=== PATIENT | male | born 1930 | race Caucasian/White ===

== ENCOUNTER → 2016-10-07 | Outpatient (CLI) | payer OTHER, BC ==
[~2016-10-07] MED LIST: ASPI81TA28 PO; CYAN100020 PO; DOCU-94 PO; FRS/40 PO; MULT-653 PO; NITR0.4S UT; TPRSR/100 PO; TPRSR50 PO
[2016-10-07 14:41] LABS: BASO % 0.6 %; BASO ABS # 0.04 K/uL (0-0.2); COMPLETE YES; EOS % 3.9 %; HEMATOCRIT 41.4 % (42-52); IG% 0.2 %; LYMPH % 23.6 %; LYMPH ABS # 1.53 K/uL (1.2-3.4); MEAN CELL VOLUME 91.4 fL (80-100); MEAN CORPUSCULAR HEMOGLOBIN 30.9 pg (25-34); MEAN CORPUSCULAR HGB CONC 33.8 g/dl (32-36); MEAN PLATELET VOLUME 9.1 fL (7.4-10.4); MONO % 10.5 %; NEUT % 61.2 %; PLATELET COUNT 109 K/uL (130-400); RED BLOOD COUNT 4.53 M/uL (4.7-6.1); WHITE BLOOD COUNT 6.49 K/uL (4.8-10.8)
== END | disposition home or self-care (01) ==
LOC: C.CPL 13:34
PROVIDERS: ATTEND Internal Medicine
DX: Z01.810 Encounter for preprocedural cardiovascular examination (principal); Z01.812 Encounter for preprocedural laboratory examination

== ENCOUNTER 2016-10-18 07:47 | Day surgery (SDC) | payer OTHER, BC ==
[2016-09-30 15:15] VITALS: BMI 23.0
[~2016-10-18] VITALS: Ht 180.3 cm; Wt 82.7 kg
[~2016-10-18 07:47] MED LIST changes: +CIPROFLOXACIN 400MG / 200ML D5W IV ONE; +CIPROFLOXACIN 400MG / 200ML D5W IV SCH; +LACTATED RINGER'S 1000ML 1,000 ML IV SCH
--- NOTE | 2016-10-18 07:53 | Endo History and Physical ---
History & Physical Date of Service: October 18, 2016. Chief Complaint: Abnormal CT of Bile duct Referring Physician: Dr. Newsome History of Present Illness History of a recent CT showing a possible stone in the CBD, for EUS and possible ERCP today. Past Medical History Atrial Fibrillation, Diabetes, Angioplasty/Stent, Anxiety, Reflux, Blood Dyscrasias, Cancer, Heart Disease, Hypertension, Kidney Disease, CVA/TIA, Depression, [place] Past Surgical History Hx Cardiac Surgery: Yes (DOUBLE BYPASS, AORTIC VALVE REPLACEMENT, CARDIAC STENTS) Hx Abdominal Surgery: No Hx Post-Op Nausea and Vomiting: No Hx Cancer Surgery: No Hx Thoracic Surgery: Yes (OPEN HEART, DOUBLE BYPASS) Hx Orthopedic: No Hx Urinary Tract Surgery: No Social History Smoking Status: Never Smoker Hx Substance Use: No Hx Alcohol Use: No 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, 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, 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) Rosuvastatin (Verified Allergy, Unknown, Myalgias., 09/30/16) Venlafaxine (Verified Allergy, Unknown, Unknown, 09/30/16) Lorazepam (Verified Adverse Reaction, Unknown, Fatigue, 09/30/16) Current Medications Reported Home Medications Medications Dose Route/Sig Max Daily Dose Days Date Category Dose Instructions Metoprolol Succinate ER (Metoprolol Succinate) 100 Mg Tabcr 100 Mg PO Q2D 09/30/16 Reported TO ALTERNATE EVERY OTHER DAY WITH 50MG TOPROL XL Metoprolol Succinate ER (Metoprolol Succinate) 50 Mg Tabcr 50 Mg PO Q2D 09/30/16 Reported ALTERNATING EVERY OTHER DAY WITH TOPROL XL 100MG Lasix (Furosemide) 40 Mg Tab 2 Tab PO Q2D 09/30/16 Reported Colace (Docusate Sodium) 100 Mg Cap 1 Cap PO DAILY 09/30/16 Reported Aspirin Ec (Aspirin) 81 Mg Tab 81 Mg PO QAM 09/30/16 Reported Vitamin B12 (Cyanocobalamin) 1,000 Mcg Tab 2 Tabs PO QAM 03/15/15 Reported Nitrostat (Nitroglycerin) 0.4 Mg Sub 0.4 Mg UT PRN 03/15/15 Reported PT HAS NOT NEEDED PER SON Multi Vitamin/Minerals Fu (Multiple Vitamins W/ Minerals) 1 Tab Tab 1 Tab PO QAM 03/15/15 Reported Vital Signs Weight (Kilograms): 75 Height (Feet): 5 Height (Inches): 11 Physical Exam General Appearance: no apparent distress Respiratory/Chest: Auscultation: breath sounds normal Cardiovascular: Heart Auscultation: II/ JOSHUA Assessment and Plan Patient for EUS and possible ERCP today after a recent CT which shows a possible stone in the CBD. We have discussed the risks to include bleeding, infection, perforation, failed biliary cannulation and pancreatitis. Plan EUS, possible ERCP
[2016-10-18] MEDS ORDERED: FENTANYL CITRATE INJ 50 MCG/1 ML 2 ML VIAL ONE (08:23)
[2016-10-18 08:41] LABS: INR 1.1 (0.9-1.1); PROTHROMBIN TIME (PATIENT) 11.4 SECONDS (9.0-12.0)
[2016-10-18 08:44] VITALS: BP 136/86; PULSE 90; TEMP 36.5; O2SAT 96; Ht 180.3 cm; Wt 82.7 kg
[2016-10-18] MEDS ORDERED: ROCURONIUM BROMIDE 10 MG/ML 5 ML VIAL ONE (09:27)
[2016-10-18] MEDS ORDERED: ONDANSETRON INJ 2 MG/ML 2 ML VIAL ONE (09:27)
[2016-10-18] MEDS ORDERED: PROPOFOL IV EMULSION 10 MG/ML 20 ML VIAL IV ONE (09:27)
[2016-10-18] MEDS ORDERED: LIDOCAINE HCL 2% 2 ML VIAL (20MG/ML) ONE (09:27)
[2016-10-18] MEDS ORDERED: SUCCINYLCHOLINE CHLORIDE 20 MG/ML 10 ML VIAL IV ONE (09:27)
[2016-10-18] MEDS ORDERED: LACTATED RINGER'S 1000ML 1,000 ML IV PRN (09:35)
[2016-10-18] MEDS ORDERED: ONDANSETRON INJ 2 MG/ML 2 ML VIAL IV PRN ×2 (09:45→10:30)
[2016-10-18] MEDS ORDERED: FENTANYL CITRATE INJ 50 MCG/1 ML 2 ML VIAL IV PRN (09:45)
[2016-10-18] MEDS ORDERED: INDOMETHACIN 50 MG SUPP PR ONE ×2 (09:46→09:48)
[2016-10-18] MEDS ORDERED: LARYING-O-JET KIT (LTA) EXT ONE ×2 (10:04)
--- NOTE | 2016-10-18 10:08 | DIAGNOSTIC IMAGING REPORT ---
ERCP BILIARY DUCTAL CLINICAL HISTORY: ERCP COMPARISON STUDY: None FLUOROSCOPY TIME: 57 seconds. FINDINGS: Retrograde cannulation of the common bile duct. This is followed by balloon insufflation and sweeping of the common duct. IMPRESSION: ERCP as noted Electronically signed by: Jamal An M.D. 10/18/2016 10:06 AM Dictated Date/Time: 10/18/2016 10:05 AM
--- NOTE | 2016-10-18 10:11 | GI REPORT ---
Procedure Date: 10/18/2016 9:15 AM Procedure: Upper GI endoscopy Indications: Epigastric abdominal pain, Abnormal CT of the GI tract Medicines: General Anesthesia Complications: No immediate complications. Estimated blood loss: Minimal. Estimated Blood Loss: Estimated blood loss was minimal. Procedure: Pre-Anesthesia Assessment: - Prior to the procedure, a History and Physical was performed, and patient medications, allergies and sensitivities were reviewed. The patient's tolerance of previous anesthesia was reviewed. - The risks and benefits of the procedure and the sedation options and risks were discussed with the patient. All questions were answered and informed consent was obtained. - Patient identification and proposed procedure were verified prior to the procedure by the physician, the nurse and the senior procurement specialist. The procedure was verified in the procedure room. - Pre-procedure physical examination revealed no contraindications to sedation. - ASA Grade Assessment: IV - A patient with severe systemic disease that is a constant threat to life. - After reviewing the risks and benefits, the patient was deemed in satisfactory condition to undergo the procedure. - The anesthesia plan was to use monitored anesthesia care (MAC). After obtaining informed consent, the endoscope was passed under direct vision. Throughout the procedure, the patient's blood pressure, pulse, and oxygen saturations were monitored continuously. The scope was introduced through the mouth, and advanced to the second part of duodenum. The upper GI endoscopy was accomplished without difficulty. The patient tolerated the procedure well. Findings: The examined esophagus was normal. The Z-line was regular and was found 39 cm from the incisors. Diffuse mild inflammation characterized by erythema and granularity was found in the entire examined stomach. Biopsies were taken with a cold forceps for histology. Estimated blood loss was minimal. Multiple diffuse erosions without bleeding were found in the duodenal bulb and in the second part of the duodenum. Biopsies were taken with a cold forceps for histology. Estimated blood loss was minimal. Impression: - Normal esophagus. - Z-line regular, 39 cm from the incisors. - Gastritis. Biopsied. - Duodenal erosions without bleeding. Biopsied. Recommendation: - Perform an upper endoscopic ultrasound (UEUS) today. - Await pathology results. - Use Prilosec (omeprazole) 20 mg PO daily Marvin Perez DO 10/18/2016 10:10:40 AM This report has been signed electronically. Note Initiated On: 10/18/2016 9:15 AM I attest to the content of the Intraoperative Record and orders documented therein, exceptions below
[2016-10-18] MEDS ORDERED: EpHEDrine SULFATE 50MG/5ML SYR ONE (10:12)
--- NOTE | 2016-10-18 10:17 | GI REPORT ---
Procedure Date: 10/18/2016 9:26 AM Procedure: Upper EUS Indications: Common bile duct dilation (acquired) seen on CT scan, Epigastric abdominal pain Medicines: General Anesthesia Complications: No immediate complications. Estimated blood loss: Minimal. Estimated Blood Loss: Estimated blood loss was minimal. Procedure: Pre-Anesthesia Assessment: - Prior to the procedure, a History and Physical was performed, and patient medications, allergies and sensitivities were reviewed. The patient's tolerance of previous anesthesia was reviewed. - The risks and benefits of the procedure and the sedation options and risks were discussed with the patient. All questions were answered and informed consent was obtained. - Patient identification and proposed procedure were verified prior to the procedure by the physician, the nurse and the orchid hand. The procedure was verified in the procedure room. - Pre-procedure physical examination revealed no contraindications to sedation. - ASA Grade Assessment: IV - A patient with severe systemic disease that is a constant threat to life. - After reviewing the risks and benefits, the patient was deemed in satisfactory condition to undergo the procedure. - The anesthesia plan was to use general anesthesia. - Immediately prior to administration of medications, the patient was re-assessed for adequacy to receive sedatives. - The heart rate, respiratory rate, oxygen saturations, blood pressure, adequacy of pulmonary ventilation, and response to care were monitored throughout the procedure. - The physical status of the patient was re-assessed after the procedure. After obtaining informed consent, the endoscope was passed under direct vision. Throughout the procedure, the patient's blood pressure, pulse, and oxygen saturations were monitored continuously. The Endosonoscope was introduced through the mouth, and advanced to the second part of duodenum. The upper EUS was accomplished without difficulty. The patient tolerated the procedure well. Findings: Endosonographic Finding : There was no sign of significant endosonographic abnormality in the ampulla. No masses were identified. There was dilation in the common bile duct which measured up to 8 mm. One stone was visualized endosonographically in the common bile duct. The stone measured 7 mm in greatest dimension. The stone was round. It was hyperechoic and characterized by shadowing. Evidence of a previous cholecystectomy was identified endosonographically. There was no sign of significant endosonographic abnormality in the visualized portion of the liver. Homogeneous parenchyma was identified. There was no sign of significant endosonographic abnormality in the left adrenal gland. No abnormal echogenicity and no adrenal gland enlargement were identified. No lymphadenopathy seen. There was no sign of significant endosonographic abnormality in the entire pancreas. The pancreatic duct measured up to 2 mm in diameter in th ehead and1.2 mm in the body. No masses, no cysts, the pancreatic duct was thin in caliber. Impression: - There was no sign of significant pathology in the ampulla. - There was dilation in the common bile duct which measured up to 8 mm. - One stone was visualized endosonographically in the common bile duct. - Evidence of a cholecystectomy. - There was no evidence of significant pathology in the visualized portion of the liver. - Endosonographic images of the left adrenal gland were unremarkable. Recommendation: - Perform an ERCP today. Saurabh Mcginnis D.O. Saurabh Mcginnis, 10/18/2016 10:16:41 AM This report has been signed electronically. Note Initiated On: 10/18/2016 9:26 AM I attest to the content of the Intraoperative Record and orders documented therein, exceptions below
--- NOTE | 2016-10-18 10:20 | GI REPORT ---
Procedure Date: 10/18/2016 9:40 AM Procedure: ERCP Indications: Abdominal pain of suspected biliary origin, For therapy of bile duct stone(s) Medicines: General Anesthesia Complications: No immediate complications. Estimated blood loss: Minimal. Estimated Blood Loss: Estimated blood loss was minimal. Procedure: Pre-Anesthesia Assessment: - Prior to the procedure, a History and Physical was performed, and patient medications, allergies and sensitivities were reviewed. The patient's tolerance of previous anesthesia was reviewed. - The risks and benefits of the procedure and the sedation options and risks were discussed with the patient. All questions were answered and informed consent was obtained. - Patient identification and proposed procedure were verified prior to the procedure by the physician, the nurse and the ward attendant. The procedure was verified in the procedure room. - Pre-procedure physical examination revealed no contraindications to sedation. - ASA Grade Assessment: IV - A patient with severe systemic disease that is a constant threat to life. - After reviewing the risks and benefits, the patient was deemed in satisfactory condition to undergo the procedure. - The anesthesia plan was to use general anesthesia. - Immediately prior to administration of medications, the patient was re-assessed for adequacy to receive sedatives. - The heart rate, respiratory rate, oxygen saturations, blood pressure, adequacy of pulmonary ventilation, and response to care were monitored throughout the procedure. - The physical status of the patient was re-assessed after the procedure. After obtaining informed consent, the scope was passed under direct vision. Throughout the procedure, the patient's blood pressure, pulse, and oxygen saturations were monitored continuously. The SCOPE was introduced through the mouth, and advanced to the duodenum and used to inject contrast into the bile duct. The ERCP was accomplished without difficulty. The patient tolerated the procedure well. Findings: A rental car ferry driver film of the abdomen was obtained. Surgical clips, consistent with previous cholecystectomy, were seen in the area of the right upper quadrant of the abdomen. The esophagus was successfully intubated under direct vision without detailed examination of the pharynx, larynx, and associated structures, and upper GI tract. The upper GI tract was grossly normal. The major papilla was normal. The bile duct was deeply cannulated with the short-nosed traction sphincterotome (Omni 35) and 0.035 in Acrobat guidewire during the second cannulation attempt (PD not cannulated or injected). Contrast was injected. I personally interpreted the bile duct images. Contrast extended to the hepatic ducts. The main bile duct was moderately dilated, with a stone causing an obstruction. The largest diameter was 8 mm. Biliary sphincterotomy was made with a monofilament short-tip traction sphincterotome using ERBE electrocautery. There was no post-sphincterotomy bleeding. To discover objects, the biliary tree was swept with a 12 mm balloon and 15 mm balloon starting at the bifurcation. One stone was removed. No stones remained. The endoscope was withdrawn from the patient. Impression: - The major papilla appeared normal. - The entire main bile duct was moderately dilated, with a stone causing an obstruction. - A sphincterotomy was performed. - The biliary tree was swept. - Choledocholithiasis was found. Complete removal was accomplished by biliary sphincterotomy and balloon extraction. Recommendation: - Avoid aspirin and nonsteroidal anti-inflammatory medicines for 1 week. - Clear liquid diet today. - Observe patient's clinical course following today's ERCP with therapeutic intervention. Saurabh Mcginnis D.O. Saurabh Mcginnis DO 10/18/2016 10:20:23 AM This report has been signed electronically. Note Initiated On: 10/18/2016 9:40 AM I attest to the content of the Intraoperative Record and orders documented therein, exceptions below
--- NOTE | 2016-10-18 10:25 | [facility] Post Operative Brief Note ---
Immediate Operative Summary Operative Date October 18, 2016. Pre-Operative Diagnosis abnormal CT scan Post-Operative Diagnosis Duodenal erosioins gastritis 1 cbd stone Procedure(s) Performed Upper Endoscopy, Upper Endoscopic Ultrasonography; Endoscopic Retrograde Cholangiopancreatogram Surgeon Dr. Saurabh Mcginnis Log Carrier Operator Surgeon(s) None Estimated Blood Loss 0ml Findings Duodenal erosions gastritis 1 cbd stone Specimens all specimens handled by ENDO crew Drains none Anesthesia General Complication(s) None Disposition Recovery Room / PACU
--- NOTE | 2016-10-18 10:27 | Discharge Instructions ---
Endoscopy Patient Instructions Date / Procedure(s) Performed October 18, 2016. 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 Medication Instructions Restart Stopped Medication(s): Reported Home Medications Medications Dose Route/Sig Max Daily Dose Days Date Category Dose Instructions Metoprolol Succinate ER (Metoprolol Succinate) 100 Mg Tabcr 100 Mg PO Q2D 09/30/16 Reported TO ALTERNATE EVERY OTHER DAY WITH 50MG TOPROL XL Metoprolol Succinate ER (Metoprolol Succinate) 50 Mg Tabcr 50 Mg PO Q2D 09/30/16 Reported ALTERNATING EVERY OTHER DAY WITH TOPROL XL 100MG Lasix (Furosemide) 40 Mg Tab 2 Tab PO Q2D 09/30/16 Reported Colace (Docusate Sodium) 100 Mg Cap 1 Cap PO DAILY 09/30/16 Reported Aspirin Ec (Aspirin) 81 Mg Tab 81 Mg PO QAM 09/30/16 Reported Vitamin B12 (Cyanocobalamin) 1,000 Mcg Tab 2 Tabs PO QAM 03/15/15 Reported Nitrostat (Nitroglycerin) 0.4 Mg Sub 0.4 Mg UT PRN 03/15/15 Reported PT HAS NOT NEEDED PER SON Multi Vitamin/Minerals Fu (Multiple Vitamins W/ Minerals) 1 Tab Tab 1 Tab PO QAM 03/15/15 Reported Provider Instructions Activity Restrictions - No exercising or heavy lifting for 24 hours. - Do not drink alcohol the day of the procedure. - Do not drive a car or operate machinery until the day after the procedure. - Do not make any important decisions or sign important papers in 24 hours after the procedure. Following Day: - Return to full activity which may include returning to work/school. Diet Clear liquid diet today Regular diet on Friday Treatment For Common After Affects For mild abdominal pain, bloating, or excessive gas: - Rest - Eat lightly - Lie on right side Follow-Up Information Follow-up with Jerod Blake as scheduled Follow-up with Dr. Mcginnis as needed Anesthesia Information What You Should Know You have had a procedure that required some medicine to reduce anxiety and discomfort. This treatment is called moderate sedation. After receiving the treatment, you may be sleepy, but you will be able to breathe on your own. The effects of the treatment may last for several hours. Follow these instructions along with Activity/Diet recommendations noted above: * Do NOT do anything where dizziness or clumsiness would be dangerous. * Rest quietly at home today, then you can be up and about tomorrow. * Have a responsible person stay with you the rest of today. * You may have had an I.V. today. If so, you may take the dressing off later today. Recommendations Call your doctor if: * Trouble breathing * Continuous vomiting for more than 24 hours * Temperature above 101 degrees * Severe abdominal pain or bloating * Pain not relieved by pain medicine ordered * There is increased drainage or redness from any incision * A large amount of rectal bleeding greater than 2-3 tablespoons. (If you had a polyp/s removed or have hemorrhoids, a small amount of blood - from the rectum is to be expected.) * You have any unanswered questions or concerns. IN THE EVENT OF A SERIOUS EMERGENCY, GO TO THE NEAREST EMERGENCY ROOM Your discharge instructions were prepared by provider Saurabh Mcginnis. Patient Instructions Signature Page Ryan Mcknight Patient (or Guardian) Signature/Date: I have read and understand the instructions given to me by my caregivers. Caregiver/RN/Doctor Signature/Date: The above-named patient and/or guardian has received patient instructions on this date. + Original Patient Signature Page (only) stays with chart. Please make copy for patient.
[2016-10-18] MEDS ORDERED: INDOMETHACIN 50 MG SUPP PR SCH (10:30)
[2016-10-18 10:58] VITALS: BP 138/78; PULSE 67; TEMP 36.3; O2SAT 97
--- NOTE | 2016-10-18 11:26 | Anesthesiology Progress Note ---
Anesthesia Post Op Note Date & Time October 18, 2016 at 11:26 Vital Signs Pain Intensity: 0 Vital Signs Past 12 Hours Date Time Temp Pulse Resp B/P Pulse Ox O2 Delivery O2 Flow Rate FiO2 10/18/16 10:58 36.3 67 18 138/78 97 Room Air 10/18/16 10:50 36.2 72 16 130/94 94 Room Air 10/18/16 10:40 72 16 142/80 93 Room Air 10/18/16 10:30 82 16 150/89 98 Diffusion Mask 10 10/18/16 10:20 82 16 145/91 98 Diffusion Mask 10 10/18/16 10:08 36 82 16 136/102 98 Diffusion Mask 10 10/18/16 08:44 36.5 90 18 136/86 96 Room Air Notes Mental Status: alert / awake / arousable, participated in evaluation Pt Amnestic to Procedure: Yes Nausea / Vomiting: adequately controlled Pain: adequately controlled Airway Patency, RR, SpO2: stable & adequate BP & HR: stable & adequate Hydration State: stable & adequate Anesthetic Complications: no major complications apparent
[2016-10-18 11:30] VITALS: BP 140/80; PULSE 71; O2SAT 100
[2016-10-18 11:55] VITALS: BP 145/94; PULSE 75; TEMP 36.1; O2SAT 96
== END 2016-10-18 12:00 | disposition home or self-care (01) ==
LOC: C.ACU 07:47
PROVIDERS: ATTEND Internal Medicine Gastroenterology
DX: K29.50 Unspecified chronic gastritis without bleeding (principal); K29.80 Duodenitis without bleeding; R93.2 Abnormal findings on diagnostic imaging of liver and biliary tract; E11.22 Type 2 diabetes mellitus with diabetic chronic kidney disease; I25.2 Old myocardial infarction; I25.10 Atherosclerotic heart disease of native coronary artery without angina pectoris; I48.91 Unspecified atrial fibrillation; Z98.62 Peripheral vascular angioplasty status; I10 Essential (primary) hypertension; I50.9 Heart failure, unspecified; Z95.2 Presence of prosthetic heart valve; Z86.73 Personal history of transient ischemic attack (TIA), and cerebral infarction without residual deficits; Z85.46 Personal history of malignant neoplasm of prostate; Z98.890 Other specified postprocedural states; Z79.82 Long term (current) use of aspirin; Z79.899 Other long term (current) drug therapy

== ENCOUNTER → 2016-11-29 | Outpatient (CLI) | payer OTHER, BC ==
[~2016-11-29] MED LIST changes: -CIPROFLOXACIN 400MG / 200ML D5W IV ONE; -CIPROFLOXACIN 400MG / 200ML D5W IV SCH; -LACTATED RINGER'S 1000ML 1,000 ML IV SCH
[2016-11-29 14:45] LABS: BASO % 0.5 %; BASO ABS # 0.03 K/uL (0-0.2); COMPLETE YES; HEMATOCRIT 40.4 % (42-52); IG% 0.2 %; LYMPH % 19.4 %; LYMPH ABS # 1.29 K/uL (1.2-3.4); MEAN CELL VOLUME 89.4 fL (80-100); MEAN CORPUSCULAR HEMOGLOBIN 30.5 pg (25-34); MEAN CORPUSCULAR HGB CONC 34.2 g/dl (32-36); MEAN PLATELET VOLUME 9.5 fL (7.4-10.4); MONO % 8.6 %; NEUT % 69.3 %; PLATELET COUNT 121 K/uL (130-400); RED BLOOD COUNT 4.52 M/uL (4.7-6.1); WHITE BLOOD COUNT 6.64 K/uL (4.8-10.8)
--- NOTE | 2016-12-02 12:42 | CODING QUERY NO DIAGNOSIS ---
CQTREATMENT RENDERED WITHOUT A DIAGNOSIS To promote full compliance with coding requirements relating to patient care, physician participation is requested in all cases of clean rice broker uncertainty. Please assist us with providing a diagnosis/symptom for the test(s) below: A diagnosis/symptom was not documented on your Order. A valid diagnosis/symptom is required to bill all insurances. Please remember that we are unable to code a diagnosis of rule out, probable, possible, questionable, or suspected. Tests that require a diagnosis: DOS 11/29/16 CBC URIC ACID ERYTHROCYTE SEDIMENT Provider Signature: Date: Thank you Edwige Keene [facility] Information Management Once completed, please kindly fax back to [phone] For questions please call [phone]
== END | disposition home or self-care (01) ==
LOC: C.LAB 13:49
PROVIDERS: ATTEND Podiatrist Foot & Ankle Surgery
DX: M24.872 Other specific joint derangements of left ankle, not elsewhere classified (principal); M76.899 Other specified enthesopathies of unspecified lower limb, excluding foot; M79.675 Pain in left toe(s); M79.674 Pain in right toe(s); B25.1 Cytomegaloviral hepatitis

== ENCOUNTER → 2017-06-05 | Outpatient (CLI) | payer OTHER, BC ==
[2017-06-05 14:55] LABS: BLOOD UREA NITROGEN 22 mg/dl (7-18); BUN/CREATININE RATIO 13.6 (10-20); CREATININE 1.62 mg/dl (0.60-1.40)
== END | disposition home or self-care (01) ==
LOC: C.LAB 12:46
PROVIDERS: ATTEND Urology
DX: C61 Malignant neoplasm of prostate (principal)

== ENCOUNTER → 2017-06-24 | Outpatient (CLI) | payer OTHER, BC ==
--- NOTE | 2017-06-24 11:24 | DIAGNOSTIC IMAGING REPORT ---
ABDOMEN AND PELVIS CT WITH IV CONTRAST CT DOSE: 664.29 mGy.cm HISTORY: C61 Adenocarcinoma of prostate diabetic-[id number] TECHNIQUE: Multiaxial CT images of the abdomen and pelvis were performed following the use of intravenous contrast. A dose lowering technique was utilized adhering to the principles of ALARA. COMPARISON STUDY: Abdomen and pelvis CT 03/15/2015. FINDINGS: Suboptimal evaluation due to the motion artifact. Increase in size in the small right pleural effusion. This appears to be partially loculated with pleural enhancement. The pleural enhancement has a somewhat nodular appearance. Trace left pleural effusion. The heart is enlarged. Postoperative changes and an aortic valve prosthesis. Pericardial calcifications, unchanged. Round consolidation within the base of the right lower lobe favors round atelectasis. There is also a 2.3 cm nodular opacity within the right middle lobe. Motion artifact. No suspicious lytic or blastic osseous lesions. Cholecystectomy. The liver, pancreas, spleen, adrenal glands are unremarkable. Bilateral cortical thinning. No hydronephrosis. A 5 mm calcification within the right kidney. Pneumobilia. No retroperitoneal or mesenteric lymphadenopathy. There are metallic surgical seen within the right lower quadrant. Normal appendix. Mild bladder wall thickening. The prostate gland is mildly enlarged. No pelvic lymphadenopathy. Colonic diverticulosis. No bowel wall thickening or obstruction. The patient is status post aortobiiliac stent graft repair of an abdominal aortic aneurysm. The aneurysm sac measures 5.2 x 5.2 cm. No retroperitoneal hematoma. IMPRESSION: 1. Small right pleural effusion has increased in size. This is partially loculated and demonstrates pleural enhancement. The pleural enhancement has a slightly nodular appearance. This could be due to a chronic pleural effusion. However, metastatic disease or an infectious process could also have a similar appearance. 2. A 2.3 cm nodular density within the right middle lobe which favors round atelectasis. However, this requires follow-up to ensure stability/resolution. There is also round atelectasis seen within the base of the right lower lobe. 3. Trace left pleural effusion, unchanged. 4. No definite evidence for metastatic disease within the abdomen or pelvis. 5. Status post aortobiiliac stent graft repair of an abdominal aortic aneurysm. The aneurysm sac currently measures 5.2 x 5.2 cm. 6. Mild bladder wall thickening. This may be due to chronic outlet obstruction. Electronically signed by: Isma Godfrey M.D. 06/24/2017 11:23 AM Dictated Date/Time: 06/24/2017 11:12 AM
--- NOTE | 2017-06-24 14:01 | DIAGNOSTIC IMAGING REPORT ---
BONE SCAN WHOLE BODY HISTORY: 86 years-old Male C61 Adenocarcinoma of prostate COMPARISON: Bone scan 04/05/2013, CT abdomen and pelvis 06/24/2017 TECHNIQUE: Anterior and posterior whole-body planar scintigraphic images from a bone scan were obtained utilizing 26.2 mCi technetium 99 MDP. Scan was obtained 3 hours post injection. FINDINGS: The lodging appearing bilateral renal, urinary bladder and soft tissue uptake is noted. Areas of mild to moderate tracer uptake within the shoulders, sternoclavicular joints and hindfeet bilaterally suggest degenerative changes. There is a small focal area of moderate radiotracer uptake noted involving the lateral aspect of the left 11th rib which correlates with a subacute appearing nondisplaced fracture seen on comparison CT abdomen and pelvis 06/24/2017. No suspicious foci identified within the axial or appendicular skeletal system to suggest metastasis. IMPRESSION: 1. No evidence of skeletal metastatic disease. 2. Small focal area of moderate radiotracer uptake involving the lateral aspect of the left 11th rib correlates with a subacute appearing nondisplaced fracture seen on comparison CT abdomen and pelvis 06/24/2017. The above report was generated using voice recognition software. It may contain grammatical, syntax or spelling errors. Electronically signed by: Eric Giraldo M.D. 06/24/2017 2:00 PM Dictated Date/Time: 06/24/2017 1:54 PM
== END | disposition home or self-care (01) ==
LOC: C.NUCL 09:56
PROVIDERS: ATTEND Urology
DX: C61 Malignant neoplasm of prostate (principal); J90 Pleural effusion, not elsewhere classified; Z95.828 Presence of other vascular implants and grafts

== ENCOUNTER → 2017-06-26 | Outpatient (CLI) | payer OTHER, BC ==
[2017-06-26 12:32] LABS: BLOOD UREA NITROGEN 16 mg/dl (7-18); CREATININE 1.38 mg/dl (0.60-1.40)
== END | disposition home or self-care (01) ==
LOC: C.LAB 11:05
PROVIDERS: ATTEND Urology
DX: C61 Malignant neoplasm of prostate (principal)

== ENCOUNTER → 2017-07-01 | Day surgery (SDC) | payer OTHER, BC ==
[~2017-07-01] VITALS: Ht 177.8 cm; Wt 75.0 kg
[~2017-07-01] MED LIST changes: +ONDANSETRON INJ 2 MG/ML 2 ML VIAL IV PRN
[2017-07-01 12:21] VITALS: Ht 177.8 cm; Wt 75.0 kg
--- NOTE | 2017-07-01 12:21 | Endo History and Physical ---
History & Physical Date of Service: Jul 01, 2017. Chief Complaint: Follow-up for a gastric ulcer Referring Physician: History of Present Illness Patient status post ERCP about 8 months ago found to have an incidental gastric ulcer. He presents for surveillance examination today. Past Medical History Atrial Fibrillation, Diabetes, Angioplasty/Stent, Anxiety, Reflux, Blood Dyscrasias, Cancer, Heart Disease, Hypertension, Kidney Disease, CVA/TIA, Depression, NC Past Surgical History Hx Cardiac Surgery: Yes (DOUBLE BYPASS, AORTIC VALVE REPLACEMENT, CARDIAC STENTS) Hx Abdominal Surgery: No Hx Post-Op Nausea and Vomiting: No Hx Cancer Surgery: No Hx Thoracic Surgery: Yes (OPEN HEART, DOUBLE BYPASS) Hx Orthopedic: No Hx Urinary Tract Surgery: No Social History Smoking Status: Never Smoker Hx Substance Use: No Hx Alcohol Use: No 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, 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 DIRECTOR, 09/30/16) Rosuvastatin (Verified Allergy, Unknown, Myalgias., 09/30/16) Venlafaxine (Verified Allergy, Unknown, Unknown, 09/30/16) Lorazepam (Verified Adverse Reaction, Unknown, Fatigue, 09/30/16) Current Medications Reported Home Medications Medications Dose Route/Sig Max Daily Dose Days Date Category Dose Instructions Metoprolol Succinate ER (Metoprolol Succinate) 100 Mg Tabcr 100 Mg PO Q2D 09/30/16 Reported TO ALTERNATE EVERY OTHER DAY WITH 50MG TOPROL XL Metoprolol Succinate ER (Metoprolol Succinate) 50 Mg Tabcr 50 Mg PO Q2D 09/30/16 Reported ALTERNATING EVERY OTHER DAY WITH TOPROL XL 100MG Lasix (Furosemide) 40 Mg Tab 2 Tab PO Q2D 09/30/16 Reported Colace (Docusate Sodium) 100 Mg Cap 1 Cap PO DAILY 09/30/16 Reported Aspirin Ec (Aspirin) 81 Mg Tab 81 Mg PO QAM 09/30/16 Reported Vitamin B12 (Cyanocobalamin) 1,000 Mcg Tab 2 Tabs PO QAM 03/15/15 Reported Nitrostat (Nitroglycerin) 0.4 Mg Sub 0.4 Mg UT PRN 03/15/15 Reported PT HAS NOT NEEDED PER SON Multi Vitamin/Minerals Fu (Multiple Vitamins W/ Minerals) 1 Tab Tab 1 Tab PO QAM 03/15/15 Reported Physical Exam General Appearance: no apparent distress Respiratory/Chest: Auscultation: deminished air movement Cardiovascular: Heart Auscultation: murmur Abdomen: Inspection & Palpation: soft Assessment and Plan Patient for surveillance upper endoscopy today. Discussed the risks to include bleeding, infection, perforation and pain.
[2017-07-01 12:40] VITALS: TEMP 36.6
--- NOTE | 2017-07-01 13:22 | Discharge Instructions ---
Endoscopy Patient Instructions Date / Procedure(s) Performed Jul 01, 2017. 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 Mild gastritis Medication Instructions Reported Home Medications Medications Dose Route/Sig Max Daily Dose Days Date Category Dose Instructions Metoprolol Succinate ER (Metoprolol Succinate) 100 Mg Tabcr 100 Mg PO Q2D 09/30/16 Reported TO ALTERNATE EVERY OTHER DAY WITH 50MG TOPROL XL Metoprolol Succinate ER (Metoprolol Succinate) 50 Mg Tabcr 50 Mg PO Q2D 09/30/16 Reported ALTERNATING EVERY OTHER DAY WITH TOPROL XL 100MG Lasix (Furosemide) 40 Mg Tab 2 Tab PO Q2D 09/30/16 Reported Colace (Docusate Sodium) 100 Mg Cap 1 Cap PO DAILY 09/30/16 Reported Aspirin Ec (Aspirin) 81 Mg Tab 81 Mg PO QAM 09/30/16 Reported Vitamin B12 (Cyanocobalamin) 1,000 Mcg Tab 2 Tabs PO QAM 03/15/15 Reported Nitrostat (Nitroglycerin) 0.4 Mg Sub 0.4 Mg UT PRN 03/15/15 Reported PT HAS NOT NEEDED PER SON Multi Vitamin/Minerals Fu (Multiple Vitamins W/ Minerals) 1 Tab Tab 1 Tab PO QAM 03/15/15 Reported Provider Instructions Activity Restrictions - No exercising or heavy lifting for 24 hours. - Do not drink alcohol the day of the procedure. - Do not drive a car or operate machinery until the day after the procedure. - Do not make any important decisions or sign important papers in 24 hours after the procedure. Following Day: - Return to full activity which may include returning to work/school. Diet Start your diet with liquids and light foods (jello, soup, juice, toast). Then eat your usual diet if not nauseated. Treatment For Common After Affects For mild abdominal pain, bloating, or excessive gas: - Rest - Eat lightly - Lie on right side Follow-Up Information Follow-up with Dr Newsome as scheduled No need for repeat upper endoscopy at the present time. Anesthesia Information What You Should Know You have had a procedure that required some medicine to reduce anxiety and discomfort. This treatment is called moderate sedation. After receiving the treatment, you may be sleepy, but you will be able to breathe on your own. The effects of the treatment may last for several hours. Follow these instructions along with Activity/Diet recommendations noted above: * Do NOT do anything where dizziness or clumsiness would be dangerous. * Rest quietly at home today, then you can be up and about tomorrow. * Have a responsible person stay with you the rest of today. * You may have had an I.V. today. If so, you may take the dressing off later today. Recommendations Call your doctor if: * Trouble breathing * Continuous vomiting for more than 24 hours * Temperature above 101 degrees * Severe abdominal pain or bloating * Pain not relieved by pain medicine ordered * There is increased drainage or redness from any incision * A large amount of rectal bleeding greater than 2-3 tablespoons. (If you had a polyp/s removed or have hemorrhoids, a small amount of blood - from the rectum is to be expected.) * You have any unanswered questions or concerns. IN THE EVENT OF A SERIOUS EMERGENCY, GO TO THE NEAREST EMERGENCY ROOM Your discharge instructions were prepared by provider Saurabh Mcginnis. Patient Instructions Signature Page Ryan Mcknight Patient (or Guardian) Signature/Date: I have read and understand the instructions given to me by my caregivers. Caregiver/RN/Doctor Signature/Date: The above-named patient and/or guardian has received patient instructions on this date. + Original Patient Signature Page (only) stays with chart. Please make copy for patient.
--- NOTE | 2017-07-01 13:25 | GI REPORT ---
Procedure Date: 07/01/2017 12:59 PM Procedure: Upper GI endoscopy Indications: Follow-up of gastric ulcer Medicines: Monitored Anesthesia Care Complications: No immediate complications. Estimated blood loss: Minimal. Estimated Blood Loss: Estimated blood loss was minimal. Procedure: Pre-Anesthesia Assessment: - Prior to the procedure, a History and Physical was performed, and patient medications, allergies and sensitivities were reviewed. The patient's tolerance of previous anesthesia was reviewed. - The risks and benefits of the procedure and the sedation options and risks were discussed with the patient. All questions were answered and informed consent was obtained. - Patient identification and proposed procedure were verified prior to the procedure by the physician, the nurse and the continuing education dean. The procedure was verified in the procedure room. - Pre-procedure physical examination revealed no contraindications to sedation. - ASA Grade Assessment: III - A patient with severe systemic disease. - After reviewing the risks and benefits, the patient was deemed in satisfactory condition to undergo the procedure. - The anesthesia plan was to use monitored anesthesia care (MAC). - Immediately prior to administration of medications, the patient was re-assessed for adequacy to receive sedatives. - The heart rate, respiratory rate, oxygen saturations, blood pressure, adequacy of pulmonary ventilation, and response to care were monitored throughout the procedure. - The physical status of the patient was re-assessed after the procedure. After obtaining informed consent, the endoscope was passed under direct vision. Throughout the procedure, the patient's blood pressure, pulse, and oxygen saturations were monitored continuously. The Scope was introduced through the mouth, and advanced to the third part of duodenum. The upper GI endoscopy was accomplished without difficulty. The patient tolerated the procedure well. Findings: The examined esophagus was normal. Diffuse minimal inflammation characterized by congestion (edema) and granularity was found in the entire examined stomach. The examined duodenum was normal. Impression: - Normal esophagus. - Gastritis. - Normal examined duodenum. - No specimens collected. Recommendation: - Discharge patient to home (ambulatory). - Advance diet as tolerated today. - Return to my office PRN. Saurabh Mcginnis D.O. Saurabh Mcginnis, 07/01/2017 1:25:07 PM This report has been signed electronically. Note Initiated On: 07/01/2017 12:59 PM I attest to the content of the Intraoperative Record and orders documented therein, exceptions below
--- NOTE | 2017-07-01 13:39 | Anesthesiology Progress Note ---
Anesthesia Post Op Note Date & Time Jul 01, 2017 at 13:39 Vital Signs Vital Signs Past 12 Hours Date Time Temp Pulse Resp B/P (MAP) Pulse Ox O2 Delivery O2 Flow Rate FiO2 07/01/17 13:34 72 20 95/50 (65) 96 Room Air 07/01/17 13:19 78 16 101/62 (75) 97 Room Air 07/01/17 12:40 36.6 75 18 131/79 (96) 97 Room Air Notes Mental Status: alert / awake / arousable, participated in evaluation Pt Amnestic to Procedure: Yes Nausea / Vomiting: adequately controlled Pain: adequately controlled Airway Patency, RR, SpO2: stable & adequate BP & HR: stable & adequate Hydration State: stable & adequate Anesthetic Complications: no major complications apparent
[2017-07-01 13:49] VITALS: BP 130/73; PULSE 74; O2SAT 96
== END | disposition home or self-care (01) ==
LOC: C.GI 12:01
PROVIDERS: ATTEND Internal Medicine Gastroenterology
DX: K25.9 Gastric ulcer, unspecified as acute or chronic, without hemorrhage or perforation (principal); I48.91 Unspecified atrial fibrillation; E11.9 Type 2 diabetes mellitus without complications; I25.10 Atherosclerotic heart disease of native coronary artery without angina pectoris; Z86.73 Personal history of transient ischemic attack (TIA), and cerebral infarction without residual deficits; I25.2 Old myocardial infarction; F32.9 Major depressive disorder, single episode, unspecified; Z79.82 Long term (current) use of aspirin; Z95.5 Presence of coronary angioplasty implant and graft; I12.9 Hypertensive chronic kidney disease with stage 1 through stage 4 chronic kidney disease, or unspecified chronic kidney disease; N18.3 Chronic kidney disease, stage 3 (moderate)

== ENCOUNTER → 2017-07-22 | Outpatient (CLI) | payer OTHER, BC ==
[~2017-07-22] MED LIST changes: -ONDANSETRON INJ 2 MG/ML 2 ML VIAL IV PRN
--- NOTE | 2017-07-22 12:23 | DIAGNOSTIC IMAGING REPORT ---
(CHEST) THORAX WITHOUT CT DOSE: 439.91 mGy.cm HISTORY: Follow-up pulmonary nodule. TECHNIQUE: Multiaxial CT images of the chest were performed without contrast. A dose lowering technique was utilized adhering to the principles of ALARA. COMPARISON: Abdomen and pelvis CT 06/24/2017. FINDINGS: No pneumothorax. Respiratory motion artifact. The central airways appear patent. Calcified granuloma within the right lower lobe. Small right and trace left pleural effusions are not significantly changed. There is persistent thickening of the right pleural lining. No significant mediastinal or hilar lymphadenopathy. Pericardial calcifications are again noted. There is an aortic valve prosthesis. Coronary artery calcifications. Poststernotomy changes. Normal caliber thoracic aorta. Limited views of the upper abdomen demonstrate a normal spleen. Small amount of pneumobilia is present. This remains unchanged. The heart remains mildly enlarged. No suspicious lytic or blastic osseous lesions. The left lung is essentially clear. Focal round opacity seen within the base of the right middle lobe and right lower lobe are not simply changed. The right middle lobe opacity measures 2.5 cm and the right lower lobe opacity measures 6.5 cm. These opacities favor round atelectasis. There is a 2.7 cm bleb at the base of the right lower lobe. IMPRESSION: 1. Stable 2.5 cm focal opacity within the right middle lobe. This favors round atelectasis. Six-month chest CT follow up is recommended to ensure stability. 2. Stable round atelectasis within the right lower lobe. 3. Stable small right and trace left pleural effusions. Mild right pleural thickening also persists. 4. Additional stable findings as described above. Electronically signed by: Isma Godfrey M.D. 07/22/2017 12:22 PM Dictated Date/Time: 07/22/2017 12:13 PM
== END | disposition home or self-care (01) ==
LOC: C.CTS 11:36
PROVIDERS: ATTEND Urology
DX: R91.1 Solitary pulmonary nodule (principal); J98.11 Atelectasis

== ENCOUNTER → 2017-07-30 | Outpatient (CLI) | payer OTHER, BC | END | disposition home or self-care (01) | LOC: C.LABSPEC 17:01 | PROVIDERS: ATTEND Podiatrist Foot & Ankle Surgery | DX: L97.509 Non-pressure chronic ulcer of other part of unspecified foot with unspecified severity (principal) ==

== ENCOUNTER 2017-09-19 10:12 | Inpatient (IN) | payer OTHER, BC ==
[~2017-09-19] VITALS: Ht 177.8 cm; Wt 67.9 kg
[2017-09-19] VITALS (7 sets, daily range): BP systolic 123–137; BP diastolic 64–84; PULSE 79–93; TEMP 36.5–36.7; O2SAT 92–95; Ht 177.8 cm; Wt 67.9 kg
[2017-09-19] MEDS ORDERED: SODIUM CHLORIDE 0.9% 500ML 500 ML IV STA (10:20)
[2017-09-19 10:37] LABS: BASO % 0.4 %; BASO ABS # 0.03 K/uL (0-0.2); EOS % 1.6 %; EOS ABS # 0.11 K/uL (0-0.5); HEMATOCRIT 39.9 % (42-52); HEMOGLOBIN 13.9 g/dL (14.0-18.0); IG# 0.02 K/uL (0.00-0.02); LYMPH ABS # 0.67 K/uL (1.2-3.4); MEAN CELL VOLUME 83.1 fL (80-100); MEAN CORPUSCULAR HGB CONC 34.8 g/dl (32-36); MEAN PLATELET VOLUME 8.8 fL (7.4-10.4); MONO % 8.2 %; MONO ABS # 0.55 K/uL (0.11-0.59); NEUT % 79.5 %; NEUT ABS # 5.35 K/uL (1.4-6.5); PLATELET COUNT 103 K/uL (130-400); RED CELL DISTRIBUTION WIDTH CV 15.9 % (11.5-14.5); RED CELL DISTRIBUTION WIDTH SD 47.8 fL (36.4-46.3); WHITE BLOOD COUNT 6.73 K/uL (4.8-10.8)
[2017-09-19 10:47] LABS: INR 1.1 (0.9-1.1); PTT PATIENT 25.7 SECONDS (21.0-31.0)
--- NOTE | 2017-09-19 10:49 | DIAGNOSTIC IMAGING REPORT ---
SINGLE VIEW CHEST CLINICAL HISTORY: Strokelike symptoms. FINDINGS: An AP, portable, upright chest radiograph is compared to study dated 03/16/2015 and correlated with chest CT dated 07/22/2017. The examination is degraded by portable technique and patient rotation. The patient is status post midline sternotomy and there is evidence of previous cardiac valve surgery. Epicardial pacing leads are noted. The heart is enlarged and there is atherosclerotic calcification of the thoracic aorta. The pulmonary vasculature is noncongested. Chronic interstitial thickening is similar to previous. There is a right pleural effusion with right basilar consolidation. This likely represents scarring/atelectasis. Mild atelectasis is seen at the left lung base.. No large left pleural effusion or pneumothorax is seen. The skeletal structures are osteopenic. The bony thorax is grossly intact. Calcific tendinopathy is present in the shoulders. IMPRESSION: 1. No acute cardiopulmonary abnormality. 2. Cardiomegaly without radiographic evidence of congestive failure. 3. Again seen is a right pleural effusion with right basilar consolidation. This was also seen on the 07/22/2017 CT scan. Electronically signed by: Howie Last M.D. 09/19/2017 10:48 AM Dictated Date/Time: 09/19/2017 10:42 AM
[2017-09-19 10:53] LABS: CREATININE 1.75 mg/dl (0.60-1.40); POTASSIUM 3.6 mmol/L (3.5-5.1)
--- NOTE | 2017-09-19 10:57 | DIAGNOSTIC IMAGING REPORT ---
CT OF THE HEAD WITHOUT CONTRAST CLINICAL HISTORY: Stroke. Falls. COMPARISON STUDY: Head CT March 15, 2013. CT DOSE: 537.48 mGy.cm TECHNIQUE: Helical axial images of the head were obtained without IV contrast. Automated exposure control was utilized for the study. A dose lowering technique was utilized adhering to the principles of ALARA. FINDINGS: No acute intracranial hemorrhage, midline shift or mass effect is present. 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 Mild asymmetric dilatation of the left lateral ventricle is unchanged. Ventricular system is stable. Basilar cisterns are patent. There are no extra-axial collections. Scattered white matter hypodensity suggests small vessel disease. There are no findings to suggest acute dural sinus thrombosis or acute territorial infarct. There are no significant calvarial abnormalities. There is mild mucosal thickening of the sinuses. IMPRESSION: 1. No acute intracranial findings. 2. No calvarial fracture. 3. 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 Electronically signed by: Julio Cesar Jenkins M.D. 09/19/2017 10:56 AM Dictated Date/Time: 09/19/2017 10:53 AM
[2017-09-19 10:58] LABS: CKMB 14.9 ng/ml (0.5-3.6)
[2017-09-19] MEDS: SODIUM CHLORIDE 0.9% 1000ML 1,000 ML IV SCH ×2 (11:10→21:55)
--- NOTE | 2017-09-19 12:01 | EMERGENCY ROOM VISIT NOTE ---
History Report prepared by Con: Demario Boothe Under the Supervision of: Dr. Burak Kathleen M.D. First contact with patient: 10:13 Stated Complaint: EVALUATION History of Present Illness The patient is a 86 year old male who presents to the Emergency Room by EMS for evaluation of multiple falls. He states that he has been intermittently falling over the past few weeks. Per EMS, the patient has been off-balance recently. They state that the patient would like to pursue an assisted living situation as he feels like he is becoming a burden to his son. They report that the patient lives in a trailer and is hoarding a lot of objects. The patient states that he often feels dizzy with standing. He denies any pelvic pain, leg pain, abdominal pain, chest pain, headache, or neck pain. He uses a walker at home. The patient did not eat breakfast this morning. Source of History: patient, EMS Onset: A few weeks ago Quality: other (multiple falls) Timing: intermittent Associated Symptoms: No headache, No neck pain, No chest pain, No abdominal pain Note: Negative: leg pain or pelvic pain. Positive: dizziness with standing. Review of Systems See HPI for pertinent positives & negatives. A total of 10 systems reviewed and were otherwise negative. 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 Social History Smoking Status: Former Smoker Drug Use: none Marital Status: Housing Status: lives alone Occupation Status: retired Current/Historical Medications Scheduled Aspirin (Aspirin Ec), 81 MG PO QAM Cyanocobalamin (Vitamin B-12), 1,000 MCG PO DAILY Diltiazem Hcl Coated Beads (Cartia Xt), 1 CAP PO DAILY Docusate Sodium (Colace), 1 CAP PO DAILY Enalapril (Vasotec), 2.5 MG PO DAILY Fish Oil ([place]-3), 2 CAP PO DAILY Furosemide (Lasix), 80 MG PO DAILY Metformin Hcl (Glucophage), 500 MG PO DAILY Metoprolol Succinate (Metoprolol Succinate ER), 50 MG PO Q2D Metoprolol Succinate (Metoprolol Succinate ER), 100 MG PO Q2D Multiple Vitamins W/ Minerals (Multi Vitamin/Minerals Fu), 1 TAB PO QAM Mupirocin 2% (Bactroban 2%), 1 APPLN EXT TID Nitroglycerin (Nitrostat), 1 TAB SL UD Omeprazole (Prilosec), 40 MG PO DAILY 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, LANG INTERPRETER, 09/30/16) Rosuvastatin (Verified Allergy, Unknown, Myalgias., 09/30/16) Venlafaxine (Verified Allergy, Unknown, Unknown, 09/30/16) Lorazepam (Verified Adverse Reaction, Unknown, Fatigue, 09/30/16) Physical Exam Vital Signs Date Time Temp Pulse Resp B/P (MAP) Pulse Ox O2 Delivery O2 Flow Rate FiO2 09/19/17 12:42 85 16 116/82 92 Room Air 09/19/17 11:12 96 Room Air 09/19/17 11:10 85 09/19/17 11:06 96 18 112/81 96 Room Air 09/19/17 10:22 36.6 94 20 113/65 94 Room Air Physical Exam GENERAL: Awake, alert, cachectic-appearing, in no acute distress HENT: Normocephalic, atraumatic. Oropharynx unremarkable. EYES: Normal conjunctiva. Sclera non-icteric. NECK: Supple. No nuchal rigidity. FROM. No JVD. RESPIRATORY: Clear to auscultation. CARDIAC: Regular rate, normal rhythm. Extremities warm and well perfused. Pulses equal. ABDOMEN: Soft, non-distended. No tenderness to palpation. No rebound or guarding. No masses. RECTAL: Deferred. MUSCULOSKELETAL: Chest examination reveals no tenderness. The back is symmetrical on inspection without obvious abnormality. There is no CVA tenderness to palpation. No joint edema. LOWER EXTREMITIES: Calves are equal size bilaterally and non-tender. No edema. No discoloration. NEURO: Normal sensorium. No sensory or motor deficits noted. SKIN: No rash or jaundice noted. Medical Decision & Procedures ER Provider Diagnostic Interpretation: Radiology results as stated below per my review and radiologist interpretation: CT OF THE HEAD WITHOUT CONTRAST FINDINGS: No acute intracranial hemorrhage, midline shift or mass effect is present. 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 Mild asymmetric dilatation of the left lateral ventricle is unchanged. Ventricular system is stable. Basilar cisterns are patent. There are no extra-axial collections. Scattered white matter hypodensity suggests small vessel disease. There are no findings to suggest acute dural sinus thrombosis or acute territorial infarct. There are no significant calvarial abnormalities. There is mild mucosal thickening of the sinuses. IMPRESSION: 1. No acute intracranial findings. 2. No calvarial fracture. 3. 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 Electronically signed by: Julio Cesar Jenkins M.D. 09/19/2017 10:56 AM SINGLE VIEW CHEST FINDINGS: An AP, portable, upright chest radiograph is compared to study dated 03/16/2015 and correlated with chest CT dated 07/22/2017. The examination is degraded by portable technique and patient rotation. The patient is status post midline sternotomy and there is evidence of previous cardiac valve surgery. Epicardial pacing leads are noted. The heart is enlarged and there is atherosclerotic calcification of the thoracic aorta. The pulmonary vasculature is noncongested. Chronic interstitial thickening is similar to previous. There is a right pleural effusion with right basilar consolidation. This likely represents scarring/atelectasis. Mild atelectasis is seen at the left lung base.. No large left pleural effusion or pneumothorax is seen. The skeletal structures are osteopenic. The bony thorax is grossly intact. Calcific tendinopathy is present in the shoulders. IMPRESSION: 1. No acute cardiopulmonary abnormality. 2. Cardiomegaly without radiographic evidence of congestive failure. 3. Again seen is a right pleural effusion with right basilar consolidation. This was also seen on the 07/22/2017 CT scan. Electronically signed by: Howie Last M.D. 09/19/2017 10:48 AM Laboratory Results Test 09/19/17 10:25 Immature Granulocyte % (Auto) 0.3 % White Blood Count 6.73 K/uL (4.8-10.8) Red Blood Count 4.80 M/uL (4.7-6.1) Hemoglobin 13.9 g/dL (14.0-18.0) Hematocrit 39.9 % (42-52) Mean Corpuscular Volume 83.1 fL (80-100) Mean Corpuscular Hemoglobin 29.0 pg (25-34) Mean Corpuscular Hemoglobin Concent 34.8 g/dl (32-36) Platelet Count 103 K/uL (130-400) Mean Platelet Volume 8.8 fL (7.4-10.4) Neutrophils (%) (Auto) 79.5 % Lymphocytes (%) (Auto) 10.0 % Monocytes (%) (Auto) 8.2 % Eosinophils (%) (Auto) 1.6 % Basophils (%) (Auto) 0.4 % Neutrophils # (Auto) 5.35 K/uL (1.4-6.5) Lymphocytes # (Auto) 0.67 K/uL (1.2-3.4) Monocytes # (Auto) 0.55 K/uL (0.11-0.59) Eosinophils # (Auto) 0.11 K/uL (0-0.5) Basophils # (Auto) 0.03 K/uL (0-0.2) Immature Granulocyte # (Auto) 0.02 K/uL (0.00-0.02) Prothrombin Time 11.3 SECONDS (9.0-12.0) Prothromb Time International Ratio 1.1 (0.9-1.1) Activated Partial Thromboplast Time 25.7 SECONDS (21.0-31.0) Partial Thromboplastin Ratio 1.0 Total Creatine Kinase 728 U/L (39-308) Creatine Kinase MB 14.9 ng/ml (0.5-3.6) Creatine Kinase MB Ratio 2.0 (0-3.0) Troponin I 0.025 ng/ml (0-0.045) Labs reviewed by ED physician. Medications Administered Medications (Trade) Dose Ordered Sig/Neel Route Start Time Stop Time Status Last Admin Dose Admin Sodium Chloride 1,000 ml @ 50 mls/hr Q20H IV 09/19/17 10:20 09/20/17 03:01 DC 09/19/17 21:55 50 MLS/HR Sodium Chloride 500 ml @ 999 mls/hr Q31M STAT IV 09/19/17 10:20 09/19/17 10:50 DC 09/19/17 10:20 999 MLS/HR ECG Per My Interpretation Indication: other (falls) Rate (beats per minute): 98 Rhythm: atrial fibrillation Findings: other (No ST elevations or depressions. No PVCs. ) ED Course 1014: Past medical records reviewed. The patient was evaluated in room B10. A complete history and physical examination was performed. 1020: Ordered Sodium Chloride 500 ml @ 999 mls/hr IV, Sodium Chloride 500 ml @ 999 mls/hr IV. 1132: Upon reexamination the patient is resting. I discussed results and treatment plan with the patient. He verbalizes agreement and understanding. [facility] The patient will be evaluated for further management. Medical Decision Differential diagnosis: Etiologies such as benign positional vertigo, dehydration, hypovolemia, anemia, tumor, infection, hypoglycemia, electrolyte abnormalities, cardiac sources, intracerebral event, toxicologic, neurologic, as well as others were entertained. This is an 86-year-old male who presents emergency department complaining of fall at home. The patient was unable to get up and laid around his house. The patient's son believes that the patient needs to be placed in a intermediate facility however the patient appears to have an old stroke on CAT scan since 2012. The patient has had multiple falls I'm concerned that this may be the cause of falls. For this reason I did discuss the case with the hospitalist service who agreed to admit the patient. Patient was in agreement with the treatment plan. Medication Reconcilliation Current Medication List: was personally reviewed by me Blood Pressure Screening Patient's blood pressure: Normal blood pressure Blood pressure disposition: Did not require urgent referral Consults Time Called: 1130 Consulting Physician: Zuri MORGAN - [facility] Returned Call: [phone] I discussed the patient's case with Zuri MORGAN, she has agreed to evaluate the patient for further management and care. Impression Primary Impression: Fall Additional Impression: CVA (cerebral infarction) Scribe Attestation The scribe's documentation has been prepared under my direction and personally reviewed by me in its entirety. I confirm that the note above accurately reflects all work, treatment, procedures, and medical decision making performed by me. Departure Information Dispostion Being Evaluated By Hospitalist Referrals John Newsome MD (PCP) Problem Qualifiers Primary Impression: Fall Encounter type: initial encounter Qualified Codes: W19.XXXA - Unspecified fall, initial encounter
[2017-09-19] MEDS ORDERED: ACETAMINOPHEN 325 MG TAB PO PRN (12:45)
[2017-09-19] MEDS ORDERED: OMEP40CA41 PO (12:54)
[2017-09-19] MEDS ORDERED: B-COTAB18 PO (12:54)
[2017-09-19] MEDS ORDERED: ENAL5TAB83 PO (13:14)
[2017-09-19] MEDS ORDERED: NTRTP TD (13:14)
[2017-09-19] MEDS ORDERED: DILT120C43 PO (13:14)
[2017-09-19] MEDS ORDERED: METO25TA4 PO (13:14)
[2017-09-19] MEDS ORDERED: BCTCR/30 EXT (13:14)
[2017-09-19] MEDS ORDERED: CYAN10005 PO (13:14)
[2017-09-19] MEDS ORDERED: GLC/500 PO (13:14)
[2017-09-19] MEDS ORDERED: OMEG10007 PO (13:14)
[2017-09-19] MEDS ORDERED: NTRGSL/4 SL (13:14)
[2017-09-19] MEDS: METOPROLOL SUCC 50MG EXT REL TAB PO SCH (14:31)
[2017-09-19] MEDS: HEPARIN SOD 5000 UNIT/0.5 ML CARP SQ SCH ×2 (14:31→21:57)
--- NOTE | 2017-09-19 16:03 | History and Physical ---
History & Physical Date & Time of Service: Sep 19, 2017 ~ 12:15 Chief Complaint: Falls,Weakness Primary Care Physician: John Newsome MD History of Present Illness 86-year-old male who presents to the ED with frequent falls and generalized weakness. Patient is accompanied by his son who is the bedside and provides some information. Son reports that he recently moved in with his father into a mobile home. About 3 weeks ago, the son reports he came home from work and found his father on the floor face down. He was able to arouse him. He reports that since that time patient has had generalized weakness and difficulty getting around. He is found him on the floor a few times additionally since then. Patient is currently without complaint. He reports he has been feeling well recently. He denies chest pain shortness of breath. No orthopnea or worsening leg edema. He denies abdominal pain, nausea, vomiting , or diarrhea. Son feels as though the patient has lost some weight recently. However he is unsure of exactly how much. Patient denies lightheadedness, dizziness, diaphoresis, or syncopal events. He denies fever and chills. He has chronic urinary frequency which is unchanged from baseline. In the ED, patient's workup was unremarkable. Past Medical/Surgical History Medical Problems: (1) Atrial fibrillation Status: Chronic (2) CAD (coronary artery disease) Permanent Comment: - CABG 01/2008 - NSTEMI 07/14/15-cardiac catheterization: diffuse [place] vessel disease, BANEGAS to LAD graft patent, saphenous vein graft to circumflex total chronic occlusion, LAD and obtuse marginal stents had noncritical stent restenosis-medical management advised Status: Chronic (3) Chronic diastolic CHF (congestive heart failure) Status: Chronic (4) CKD (chronic kidney disease), stage III Status: Chronic (5) CVA (cerebral vascular accident) Status: Chronic (6) Depression Status: Chronic (7) Diabetes mellitus, type II Status: Chronic (8) Dyslipidemia Status: Chronic (9) Pleural effusion, right Status: Chronic (10) Prostate cancer Status: Chronic (11) PUD (peptic ulcer disease) Permanent Comment: EGD 06/2017- Normal esophagus, Gastritis, Normal examined duodenum. Status: Chronic Surgical Problems: (1) History of cataract surgery Status: Chronic (2) Hx of CABG Permanent Comment: Status: Chronic (3) S/P AAA repair Status: Chronic (4) S/P cholecystectomy Status: Chronic (5) S/P TAVR (transcatheter aortic valve replacement) Status: Chronic Family History Noncontributory secondary to patient's advanced age Social History Smoking Status: Former Smoker Alcohol Use: none Housing status: lives with family Immunizations History of Influenza Vaccine: Yes Influenza Vaccine Date: Mar 26, 2017 History of Tetanus Vaccine?: Yes Tetanus Immunization Date: Jan 25, 2014 History of Pneumococcal: Yes Pneumococcal Date: Apr 24, 2016 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, BAILIFF, 09/30/16) Rosuvastatin (Verified Allergy, Unknown, Myalgias., 09/30/16) Venlafaxine (Verified Allergy, Unknown, Unknown, 09/30/16) Lorazepam (Verified Adverse Reaction, Unknown, Fatigue, 09/30/16) Home Medications Scheduled Aspirin (Aspirin Ec), 81 MG PO QAM Cyanocobalamin (Vitamin B-12), 1,000 MCG PO DAILY Diltiazem Hcl Coated Beads (Cartia Xt), 1 CAP PO DAILY Docusate Sodium (Colace), 1 CAP PO DAILY Enalapril (Vasotec), 2.5 MG PO DAILY Fish Oil ([place]-3), 2 CAP PO DAILY Furosemide (Lasix), 80 MG PO DAILY Metformin Hcl (Glucophage), 500 MG PO DAILY Metoprolol Succinate (Metoprolol Succinate ER), 50 MG PO Q2D Metoprolol Succinate (Metoprolol Succinate ER), 100 MG PO Q2D Multiple Vitamins W/ Minerals (Multi Vitamin/Minerals Fu), 1 TAB PO QAM Mupirocin 2% (Bactroban 2%), 1 APPLN EXT TID Nitroglycerin (Nitrostat), 1 TAB SL UD Omeprazole (Prilosec), 40 MG PO DAILY Review of Systems ROS per HPI, all other systems reviewed and negative Physical Exam Vital Signs Date Time Temp Pulse Resp B/P (MAP) Pulse Ox O2 Delivery O2 Flow Rate FiO2 09/19/17 13:43 36.5 90 18 129/84 (99) 93 Room Air 09/19/17 12:55 92 Room Air 09/19/17 12:42 85 16 116/82 92 Room Air 09/19/17 11:12 96 Room Air 09/19/17 11:10 85 09/19/17 11:06 96 18 112/81 96 Room Air 09/19/17 10:22 36.6 94 20 113/65 94 Room Air General Appearance: WD/WN, no apparent distress Head: normocephalic, atraumatic Eyes: normal inspection, EOMI, sclerae normal ENT: + pertinent finding ([place]OO[place], mucous membranes dry) Neck: supple, no JVD, trachea midline Respiratory/Chest: lungs clear, normal breath sounds, no respiratory distress Cardiovascular: no edema, normal peripheral pulses, + irregularly irregular ( Rate controlled) Abdomen/GI: normal bowel sounds, non tender, soft, no organomegaly Extremities/Musculoskelatal: normal inspection, no calf tenderness, normal capillary refill Neurologic/Psych: no motor/sensory deficits, alert, normal mood/affect, oriented x 3, + pertinent finding (Poor insight, forgetful) Skin: normal color, warm/dry Diagnostics Laboratory Results Results Past 24 Hours Test 09/19/17 10:20 09/19/17 10:25 Range/Units White Blood Count 6.73 4.8-10.8 K/uL Red Blood Count 4.80 4.7-6.1 M/uL Hemoglobin 13.9 14.0-18.0 g/dL Hematocrit 39.9 42-52 % Mean Corpuscular Volume 83.1 80-100 fL Mean Corpuscular Hemoglobin 29.0 25-34 pg Mean Corpuscular Hemoglobin Concent 34.8 32-36 g/dl Platelet Count 103 130-400 K/uL Mean Platelet Volume 8.8 7.4-10.4 fL Neutrophils (%) (Auto) 79.5 % Lymphocytes (%) (Auto) 10.0 % Monocytes (%) (Auto) 8.2 % Eosinophils (%) (Auto) 1.6 % Basophils (%) (Auto) 0.4 % Neutrophils # (Auto) 5.35 1.4-6.5 K/uL Lymphocytes # (Auto) 0.67 1.2-3.4 K/uL Monocytes # (Auto) 0.55 0.11-0.59 K/uL Eosinophils # (Auto) 0.11 0-0.5 K/uL Basophils # (Auto) 0.03 0-0.2 K/uL RDW Standard Deviation 47.8 36.4-46.3 fL RDW Coefficient of Variation 15.9 11.5-14.5 % Immature Granulocyte % (Auto) 0.3 % Immature Granulocyte # (Auto) 0.02 0.00-0.02 K/uL Prothrombin Time 11.3 9.0-12.0 SECONDS Prothromb Time International Ratio 1.1 0.9-1.1 Activated Partial Thromboplast Time 25.7 21.0-31.0 SECONDS Partial Thromboplastin Ratio 1.0 Sodium Level 137 136-145 mmol/L Potassium Level 3.6 3.5-5.1 mmol/L Chloride Level 101 98-107 mmol/L Carbon Dioxide Level 27 21-32 mmol/L Anion Gap 8.0 3-11 mmol/L Blood Urea Nitrogen 25 7-18 mg/dl Creatinine 1.75 0.60-1.40 mg/dl Est Creatinine Clear Calc Drug Dose 30.7 ml/min Estimated GFR () 40.0 Estimated GFR (Non- 34.5 BUN/Creatinine Ratio 14.3 10-20 Random Glucose 120 70-99 mg/dl Calcium Level 9.0 8.5-10.1 mg/dl Magnesium Level 2.0 1.8-2.4 mg/dl Total Creatine Kinase 728 39-308 U/L Creatine Kinase MB 14.9 0.5-3.6 ng/ml Creatine Kinase MB Ratio 2.0 0-3.0 Troponin I 0.025 0-0.045 ng/ml Diagnostic Radiology HEAD CT IMPRESSION: 1. No acute intracranial findings. 2. No calvarial fracture. 3. 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 CXR IMPRESSION: 1. No acute cardiopulmonary abnormality. 2. Cardiomegaly without radiographic evidence of congestive failure. 3. Again seen is a right pleural effusion with right basilar consolidation. This was also seen on the 07/22/2017 CT scan. Impression Assessment and Plan FREQUENT FALLS GENERALIZED WEAKNESS -Admit to telemetry -Patient presenting with frequent falls and generalized weakness, son reports patient had a fall approximately 3 weeks ago where he was found on the floor face down, son reports increased falls and generalized weakness since that time -History of CVA, no gross focal deficits noted on exam -Monitor in telemetry for arrhythmias -Check U/A -Neuro consult for further recommendations ATRIAL FIBRILLATION -Rate controlled on metoprolol, will continue -Not anticoagulated secondary to fall risk CORONARY ARTERY DISEASE -Appears stable, no reports of chest pain -Continue aspirin and beta-iris; patient has declined statin therapy in the past CHRONIC DIASTOLIC CHF -Appears euvolemic, will continue home dose of Lasix RIGHT-SIDED PLEURAL EFFUSION -Parsons to be due to congestive heart failure -S/P thoracentesis 01/2017 and 03/2017 -Following with pulmonary medicine and Lucy -Effusion is present on chest x-ray today however patient is currently asymptomatic, saturating well on room air PROSTATE CANCER -Follows with Dr. Lei -Recently received Lupron injection HISTORY OF TAVR HISTORY OF AAA REPAIR PUD -Continue PPI DVT PROPHYLAXIS -SQ heparin CODE STATUS -Patient is a DNR as per my discussion with him. DISPOSITION -In my clinical judgment this beneficiary meets acute admission criteria, established by [facility], that includes being hospitalized through two midnights. -PT/OT, case management consults; patient likely will need higher level of care at discharge, he is interested in a skilled nursing located in [place] ADDENDUM: I have seen and examined the patient above and agree with the assessment and plan as stated. Mr. 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 He told me he feels that he is headed to a better place soon. Pt appears generally weak on exam. We discussed the plan for therapy to evaluate him and make recommendations. All questions were answered. Will await PT/OT recs in am. Andre, DO Advanced Directives Existing Living Will: Yes Existing Power of Junior Financial Analyst: Yes Resuscitation Status VTE Prophylaxis Will order VTE Prophylaxis: Yes
--- NOTE | 2017-09-19 16:11 | Neurology Consultation ---
Neurology Consultation Date of Consultation: Sep 19, 2017. Attending Physician: Sylvester San M.D. Primary Care Physician: John Newsome MD Reason for Consultation: frequent falls and weakness History of Present Illness Source: patient Ryan is a 86 year old male PMH DL, CVA, Afib- not on coumadin, CHF, DM, CABG 1979, NSTEMI cath 07/14/15, depression, who presents to the ED with frequent falls and generalized weakness. He was brought into the hospital by his son. Son reports that he recently moved in with his father into a mobile home. About 3 weeks ago, the son reports he came home from work and found his father on the floor face down and unable to arouse him. Since then there was generalized weakness and difficulty getting around. He feels he has been weak several years but the weakness has been worse recently. He feels his son wants him in a care home because he is getting weak and has had falls but this time there was no fall. denies CP, SOB, abdominal pain, ones sided weakness, falls, swallowing difficulty, slurred speech, N, V, vision changes. Social History Smoking Status: Former smoker Alcohol Use: none Housing Status: lives alone 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, DISPLAYER, 09/30/16) Rosuvastatin (Verified Allergy, Unknown, Myalgias., 09/30/16) Venlafaxine (Verified Allergy, Unknown, Unknown, 09/30/16) Lorazepam (Verified Adverse Reaction, Unknown, Fatigue, 09/30/16) Current Inpatient Medications Current Inpatient Medications Medications (Trade) Dose Ordered Sig/Neel Route Start Time Stop Time Status Last Admin Dose Admin Sodium Chloride 1,000 ml @ 50 mls/hr Q20H IV 09/19/17 10:20 10/19/17 10:19 09/19/17 11:10 50 MLS/HR Heparin Sodium (Porcine) (Heparin Sq 5000 Unit/0.5ml) 5,000 unit Q8 SQ 09/19/17 14:00 10/19/17 13:59 Acetaminophen (Tylenol Tab) 650 mg Q4H PRN PO 09/19/17 12:45 10/19/17 12:44 Aspirin (Ecotrin Tab) 81 mg QAM PO 09/20/17 09:00 10/20/17 08:59 Docusate Sodium (coLACE CAP) 100 mg DAILY PO 09/20/17 09:00 10/20/17 08:59 Furosemide (Lasix Tab) 80 mg DAILY PO 09/20/17 09:00 10/20/17 08:59 Metoprolol Succinate (Toprol Xl Tab) 50 mg Q2D PO 09/19/17 14:00 10/19/17 13:59 09/19/17 14:31 50 MG Multivitamins/ Minerals (Multivitamin W/ Minerals Tab) 1 tab QAM PO 09/20/17 09:00 10/20/17 08:59 Vitamin B Complex (Vitamin B Complex) 1 tab DAILY PO 09/20/17 09:00 10/20/17 08:59 Pantoprazole Sodium (Protonix Tab) 40 mg DAILY PO 09/20/17 09:00 10/20/17 08:59 Metoprolol Succinate (Toprol Xl Tab) 100 mg Q2D PO 09/20/17 09:00 10/20/17 08:59 Physical Exam Vital Signs (Past 24 Hrs): Date Time Temp Pulse Resp B/P (MAP) Pulse Ox O2 Delivery O2 Flow Rate FiO2 09/19/17 15:26 36.5 93 20 127/64 (85) 94 Room Air 09/19/17 13:43 36.5 90 18 129/84 (99) 93 Room Air 09/19/17 12:55 92 Room Air 09/19/17 12:42 85 16 116/82 92 Room Air 09/19/17 11:12 96 Room Air 09/19/17 11:10 85 09/19/17 11:06 96 18 112/81 96 Room Air 09/19/17 10:22 36.6 94 20 113/65 94 Room Air Physical Exam: Constitutional: appearance nourished, thin pale Ears, Nose, Mouth and Throat: mucous membranes moist, no injection and skin normal, eyes normal Cardiovascular: irregular Respiratory: clear to auscultation (CTA) and no rales, rhonchi or wheeze Musculoskeletal: bilateral peripheral edema distant distal pulses Skin: significant stigmata of neurocutaneous disease bilateral LE Eyes: extraocular muscles intact (EOMI) and pupils equal, round and reactive to light (PERRL) NEUROLOGIC EXAMINATION: Mental status: Alert and interactive Oriented place, 2018 Oriented to person Speech fluent with no evidence of aphasia Cranial Nerves smile eye brow raise symmetric Reflexes: Deep tendon reflexes were symmetrical and graded 2/5. Plantar neutral Sensory: decreased sensation bilaterally LE to knees with light touch, vibration, absent GT proprioception Coordination: finger to nose no bi pass Gait/Stance: Posture lying in bed, walked with minimal assistance to the bathroom with nursing and walker Motor: Negative for pronator drift of out stretched arms with eyes closed. Strength: biceps triceps hand barrel assembler helper bilaterally 5/5, hip flex against gravity not resistance Laboratory Results Past 24 Hours: 09/19/17 10:25 Red Blood Count 4.80, Mean Corpuscular Volume 83.1, Mean Corpuscular Hemoglobin 29.0, Mean Corpuscular Hemoglobin Concent 34.8, Mean Platelet Volume 8.8, Neutrophils (%) (Auto) 79.5, Lymphocytes (%) (Auto) 10.0, Monocytes (%) (Auto) 8.2, Eosinophils (%) (Auto) 1.6, Basophils (%) (Auto) 0.4, Neutrophils # (Auto) 5.35, Lymphocytes # (Auto) 0.67, Monocytes # (Auto) 0.55, Eosinophils # (Auto) 0.11, Basophils # (Auto) 0.03 09/19/17 10:25 Test 09/19/17 10:20 09/19/17 10:25 White Blood Count 6.73 K/uL (4.8-10.8) Red Blood Count 4.80 M/uL (4.7-6.1) Hemoglobin 13.9 g/dL (14.0-18.0) Hematocrit 39.9 % (42-52) Mean Corpuscular Volume 83.1 fL (80-100) Mean Corpuscular Hemoglobin 29.0 pg (25-34) Mean Corpuscular Hemoglobin Concent 34.8 g/dl (32-36) Platelet Count 103 K/uL (130-400) Mean Platelet Volume 8.8 fL (7.4-10.4) Neutrophils (%) (Auto) 79.5 % Lymphocytes (%) (Auto) 10.0 % Monocytes (%) (Auto) 8.2 % Eosinophils (%) (Auto) 1.6 % Basophils (%) (Auto) 0.4 % Neutrophils # (Auto) 5.35 K/uL (1.4-6.5) Lymphocytes # (Auto) 0.67 K/uL (1.2-3.4) Monocytes # (Auto) 0.55 K/uL (0.11-0.59) Eosinophils # (Auto) 0.11 K/uL (0-0.5) Basophils # (Auto) 0.03 K/uL (0-0.2) RDW Standard Deviation 47.8 fL (36.4-46.3) RDW Coefficient of Variation 15.9 % (11.5-14.5) Immature Granulocyte % (Auto) 0.3 % Immature Granulocyte # (Auto) 0.02 K/uL (0.00-0.02) Prothrombin Time 11.3 SECONDS (9.0-12.0) Prothromb Time International Ratio 1.1 (0.9-1.1) Activated Partial Thromboplast Time 25.7 SECONDS (21.0-31.0) Partial Thromboplastin Ratio 1.0 Anion Gap 8.0 mmol/L (3-11) Est Creatinine Clear Calc Drug Dose 30.7 ml/min Estimated GFR () 40.0 Estimated GFR (Non- 34.5 BUN/Creatinine Ratio 14.3 (10-20) Calcium Level 9.0 mg/dl (8.5-10.1) Magnesium Level 2.0 mg/dl (1.8-2.4) Total Creatine Kinase 728 U/L (39-308) Creatine Kinase MB 14.9 ng/ml (0.5-3.6) Creatine Kinase MB Ratio 2.0 (0-3.0) Troponin I 0.025 ng/ml (0-0.045) Imaging CT head-No acute intracranial findings. No calvarial fracture. 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 CXR- . No acute cardiopulmonary abnormality. Cardiomegaly without radiographic evidence of congestive failure. Again seen is a right pleural effusion with right basilar consolidation. This was also seen on the 07/22/2017 CT scan. Impression 86 year old male generalize progressive weakness and falls. Plan 1. CT head no acute bleed 2. afib not on coumadin due to fall risk 3. DM peripheral neuropathy bilaterally 4. PT/OT for discharge needs 5. folate, B12, RPR, lyme - r/o reversable issues 6. medical management per primary service 7. further recommendations to follow I have seen and discussed above patient with Dr Angelia Smallwood, neurology Pt seen and examined, exam nonfocal, evidence of pn. Pt declined to walk, but I do not see clinical evidence of PD. Rec MRI brain to r/o new infarct. SANGEETHA Smallwood MD
[2017-09-20] VITALS (12 sets, daily range): BP systolic 106–161; BP diastolic 59–79; PULSE 50–80; TEMP 36–36.8; O2SAT 93–100
[2017-09-20] MEDS ORDERED: POTASSIUM CHLORIDE 10 MEQ TABCR PO ONE (03:00)
[2017-09-20 06:10] LABS: HEMATOCRIT 35.9 % (42-52); HEMOGLOBIN 12.2 g/dL (14.0-18.0); MEAN CELL VOLUME 84.7 fL (80-100); MEAN CORPUSCULAR HEMOGLOBIN 28.8 pg (25-34); RED CELL DISTRIBUTION WIDTH SD 49.5 fL (36.4-46.3)
[2017-09-20] MEDS: HEPARIN SOD 5000 UNIT/0.5 ML CARP SQ SCH ×3 (06:12→21:09)
[2017-09-20 06:38] LABS: PLATELET COUNT 99 K/uL (130-400)
[2017-09-20 06:40] LABS: CREATININE 1.7 mg/dl (0.60-1.40)
[2017-09-20 06:41] LABS: CALCIUM 8.3 mg/dl (8.5-10.1); POTASSIUM 3.8 mmol/L (3.5-5.1)
[2017-09-20] MEDS: FUROSEMIDE 80 MG TAB PO SCH (08:55)
[2017-09-20] MEDS: DOCUSATE SODIUM 100 MG CAP PO SCH (08:55)
[2017-09-20] MEDS: CEROVITE ADV FORMULA TAB PO SCH (08:55)
[2017-09-20] MEDS: ASPIRIN 81 MG ECTAB PO SCH (08:56)
[2017-09-20] MEDS: VITAMIN B COMPLEX TAB PO SCH (08:56)
[2017-09-20] MEDS: PANTOprazole SOD 40 MG TAB PO SCH (08:56)
[2017-09-20] MEDS: METOPROLOL SUCC 50MG EXT REL TAB PO SCH (08:56)
[2017-09-20] MEDS ORDERED: METOPROLOL SUCC 50MG EXT REL TAB PO SCH (09:00)
--- NOTE | 2017-09-20 13:01 | PROGRESS NOTE ---
DATE: 09/20/2017 SUBJECTIVE: I am seeing Mr. Mcknight in followup of a presumed fall. He was apparently, although oriented, somewhat confused overnight. He denies any focal complaints, although is unhappy about being in the hospital. He is oriented to person and place. He declines to walk. PHYSICAL EXAMINATION: His strength is symmetric. There is no facial asymmetry, no asymmetric weakness. He may be mildly weaker in the lowers than the uppers, but not unusual for age and he has diminished lower extremity reflexes. There is no resting tremor. IMPRESSION AND PLAN: Gait dysfunction, probably related to diabetic neuropathy. Patient has not allowed me to ambulate him. I would like him to have an MRI of the brain given his history of atrial fibrillation and recent fall. We will follow with you. MINH
--- NOTE | 2017-09-20 17:11 | Cardiology Consultation ---
Cardiology Consultation Date of Consultation: Sep 20, 2017 History of Present Illness Ryan Mcknight is a 86 year old male seen in cardiology consultation per the request of Dr. San for evaluation of frequent falls, atrial fibrillation, with episodes of slow ventricular rate. The patient is well-known to the undersigned as I have followed him as an outpatient with most recent outpatient visit with me in May 2017. Per review of his chart, it appears that the patient has had a recent progressive decline. He has had progressive worsening mental status over the last few years per my observation and has suffered from progressive frailty and ambulatory dysfunction. He was brought to the emergency room for generalized weakness and recurrent falls. CT of the brain revealed no acute intracranial hemorrhage does have evidence of a chronic stroke. An MRI has been completed the results of which are pending at present. He is a long-standing history of chronic atrial fibrillation. He is not anticoagulated with Coumadin or direct oral anticoagulant due to his generalized frailty, frequent falls, and issues regarding medication adherence in the past. On telemetry overnight last night atrial fibrillation with slow ventricular response was noted with a 3.1 second pause that occurred at 2:41 AM and a 3.1 second pause that occurred at 2:36 AM on 09/20/17 during sleep. Otherwise there are several R to R interval 72 second range. Past Medical/Surgical History Problem List: Medical Problems: (1) chronic atrial fibrillation (2) CAD (coronary artery disease), remote CABG -Cardiac catheterization in preparation for transcatheter aortic valve replacement took place on 07/14/15 at [facility] [place]: The left main was free of obstructive disease. The LAD was severely diseased with 100% lesion in the proximal segment, patent distal LAD stent First diagonal was severely diseased 50% circumflex and obtuse marginal stenosis Severe proximal RCA stenosis was present Saphenous vein graft to the circumflex was totally occluded BANEGAS to LAD was patent (3) Chronic diastolic CHF (congestive heart failure) (4) CKD (chronic kidney disease), stage III (5) CVA (cerebral vascular accident) (6) Depression (7) Diabetes mellitus, type II (8) Dyslipidemia (9) Pleural effusion, right (10) Prostate cancer (11) PUD (peptic ulcer disease) Surgical Problems: (1) History of cataract surgery (2) Hx of CABG (3) S/P AAA repair history of open repair, then repeat endovascular repair with Endologix AAA stent graft and placement of proximal extension cuff by Dr. 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, 09/30/16) Rosuvastatin (Verified Allergy, Unknown, Myalgias., 09/30/16) Venlafaxine (Verified Allergy, Unknown, Unknown, 09/30/16) Lorazepam (Verified Adverse Reaction, Unknown, Fatigue, 09/30/16) Medications Reported Home Medications Medications Dose Route/Sig Max Daily Dose Days Date Category Dose Instructions Vitamin B-12 (Cyanocobalamin) 1,000 Mcg Tab 1,000 Mcg PO DAILY 09/19/17 Reported Nitrostat (Nitroglycerin) 0.4 Mg Tab 1 Tab SL UD 09/19/[address] ONE TAB UNDER TONGUE IF NEEDED EVERY 5 MIN FOR CHEST PAIN FOR 3 DOSES Bactroban 2% (Mupirocin) 30 Gm Cr 1 Appln EXT TID 09/19/17 Reported Glucophage (Metformin Hcl) 500 Mg Tab 500 Mg PO DAILY 09/19/17 Reported [place]-3 (Fish Oil) 1 Ea Cap 2 Cap PO DAILY 09/19/17 Reported Vasotec (Enalapril Maleate) 5 Mg Tab 2.5 Mg PO DAILY 09/19/17 Reported Cartia Xt (Diltiazem Hcl Coated Beads) 120 Mg Cap 1 Cap PO DAILY 09/19/17 Reported Prilosec (Omeprazole) 40 Mg Cap 40 Mg PO DAILY 09/19/17 Reported Metoprolol Succinate ER (Metoprolol Succinate) 100 Mg Tabcr 100 Mg PO Q2D 09/30/16 Reported TO ALTERNATE EVERY OTHER DAY WITH 50MG TOPROL XL Metoprolol Succinate ER (Metoprolol Succinate) 50 Mg Tabcr 50 Mg PO Q2D 09/30/16 Reported ALTERNATING EVERY OTHER DAY WITH TOPROL XL 100MG Lasix (Furosemide) 40 Mg Tab 80 Mg PO DAILY 09/30/16 Reported Colace (Docusate Sodium) 100 Mg Cap 1 Cap PO DAILY 09/30/16 Reported Aspirin Ec (Aspirin) 81 Mg Tab 81 Mg PO QAM 09/30/16 Reported Multi Vitamin/Minerals Fu (Multiple Vitamins W/ Minerals) 1 Tab Tab 1 Tab PO QAM 03/15/15 Reported Physical Exam Vital Signs (Last 8hrs): Last 8 Hrs Date Time Temp Pulse Resp B/P (MAP) Pulse Ox O2 Delivery O2 Flow Rate FiO2 09/20/17 16:00 95 Room Air 09/20/17 15:32 36.5 64 16 106/59 (75) 97 Room Air 09/20/17 12:45 36.8 76 20 109/68 (82) 93 Nasal Cannula 2.0 09/20/17 12:00 96 Nasal Cannula 2.0 General Appearance: Alert and Oriented x3. NAD, frail in appearance Head: Normocephalic Atraumatic. Eyes: PERRLA, EOMI, conjunctiva and sclera clear Neck: Supple. No carotid bruits noted. No JVD. No HJD. Respiratory: Breath sounds clear to auscultation bilaterally. No w/r/r. Cardiovascular: Irregular rhythm S1 and S2 noted. 1/6 systolic murmur Abdomen: Normal bowel sounds, soft nontender. no abdominal bruits. Extremities: No edema, no clubbing or cyanosis. distal pulses 2/4 bilaterally. Neuro: No focal deficits. Psychiatric: Normal affect. Data Last Resulted 09/20/17 05:21 Last Resulted 09/20/17 05:21 EKG performed today 09/19/17 are reviewed independently: Atrial fibrillation at 90 bpm, age-indeterminate anterior infarction cannot be excluded Assessment & Plan Impression: 86-year-old male Falls, generalized weakness Atrial fibrillation, slow ventricular rates at rest, sleep History of CAD, remote CABG, LAD territory stent, transcatheter aortic valve replacement Abdominal aortic aneurysm open repair and then endovascular repair Plan: Patient has a history of taking metoprolol 100 mg daily alternating with 50 mg daily per my outpatient documentation. At present, he has several positives at rest that are less than 5 seconds in duration, and I am not convinced that this is the cause of his generalized decline or that a permanent pacemaker would help with his energy level or fall situation at present. I would like to observe him further on telemetry. Agree with holding off on his metoprolol dose for today. Another issue is that I am not certain that we can reliably know what metoprolol dose he has been taking at home. In my experience with following him for the last several years, I have always been left with the impression that he takes his medications per his own schedule as compared to the schedule that I have recommended for him in the past. Continue aspirin. Continue furosemide. In the past he has had significant lower extremity edema, this is completely resolved. He has a small residual right pleural effusion. In 2017 he underwent thoracentesis of 2 L of pleural fluid with the pulmonary medicine department at [facility] [place]. This appears to be stable on his current diuretic dose at present. His most recent echocardiogram had been performed in November, with normal LVEF and stable prosthetic valve indices at that time. I do not think we need to repeat this at present
--- NOTE | 2017-09-20 18:15 | Progress Note ---
Medicine Progress Note Date & Time of Visit: Sep 20, 2017 at 14:40 . Subjective CC: Follow-up visit for weakness, falls, arrhythmias. HPI: Feels well. Denies chest pain, palpitations, lightheadedness, syncope, near syncope. Cardiac rhythms reviewed with monitor technicians; underlying rhythm is atrial fibrillation with several 2-3 second pauses. ROS: General- no fever, no chills Resp- no cough; no shortness of breath Cardiac- as noted above in HPI GI- no nausea, no vomiting, no diarrhea, no constipation - no dysuria, no difficulty voiding . Objective Last 8 Hrs Date Time Temp Pulse Resp B/P (MAP) Pulse Ox O2 Delivery O2 Flow Rate FiO2 09/20/17 16:00 95 Room Air 09/20/17 15:32 36.5 64 16 106/59 (75) 97 Room Air 09/20/17 12:45 36.8 76 20 109/68 (82) 93 Nasal Cannula 2.0 09/20/17 12:00 96 Nasal Cannula 2.0 Physical Exam: General- alert male, lying in bed, no distress ENT- hard of hearing Lungs- clear to auscultation; no respiratory distress Cardiovascular- irregular; II/ systolic murmur at base; no gallop appreciated ; no JVD; no pretibial edema Abdomen- + bowel sounds, soft, nontender Extremities- no cyanosis; no calf tenderness Neuro- alert, oriented Skin- warm & dry . Laboratory Results: Last 24 Hours Test 09/19/17 20:30 09/20/17 05:21 Urine Color DK YELLOW Urine Appearance CLEAR Urine pH 6.5 Urine Specific [place] 1.026 Urine Protein 1+ Urine Glucose (UA) NEG Urine Ketones TRACE Urine Occult Blood NEG Urine Nitrite NEG Urine Bilirubin NEG Urine Urobilinogen POS Urine Leukocyte Esterase NEG Urine WBC (Auto) 1-5 /hpf Urine RBC (Auto) 0-4 /hpf Urine Hyaline Casts (Auto) 0 /lpf Urine Epithelial Cells (Auto) 0-5 /lpf Urine Bacteria (Auto) NEG White Blood Count 5.60 K/uL Red Blood Count 4.24 M/uL Hemoglobin 12.2 g/dL Hematocrit 35.9 % Mean Corpuscular Volume 84.7 fL Mean Corpuscular Hemoglobin 28.8 pg Mean Corpuscular Hemoglobin Concent 34.0 g/dl RDW Standard Deviation 49.5 fL RDW Coefficient of Variation 16.0 % Platelet Count 99 K/uL Mean Platelet Volume 9.0 fL Platelet Estimate DECREASED Sodium Level 140 mmol/L Potassium Level 3.8 mmol/L Chloride Level 106 mmol/L Carbon Dioxide Level 29 mmol/L Anion Gap 5.0 mmol/L Blood Urea Nitrogen 28 mg/dl Creatinine 1.70 mg/dl Est Creatinine Clear Calc Drug Dose 31.0 ml/min Estimated GFR () 41.4 Estimated GFR (Non- 35.7 BUN/Creatinine Ratio 16.4 Random Glucose 94 mg/dl Calcium Level 8.3 mg/dl Magnesium Level 2.2 mg/dl Date/Time Source Procedure Growth Status 09/19/17 20:30 Urine , Clean Catch Urine Culture - Preliminary NO GROWTH - LESS THAN 1,000 COLONIES/... Resulted Assessment & Plan WEAKNESS / FALLS May or may not be related to cardiac arrhythmias. Continue cardiac monitoring. Check orthostatic vital signs. PT/OT evaluations. ATRIAL FIBRILLATION Rate currently controlled, but has episodes of bradycardia with 2-3 second pauses. Continue cardiac monitoring. Titrate beta-iris. Not anticoagulated due to fall risk and past concerns about compliance / safety. Cardiology consulted. CORONARY ARTERY DISEASE History of ischemic heart disease, status post CABG. Denies chest pain. Serum troponin negative. Continue aspirin, metoprolol. CHF History of chronic left ventricular diastolic heart failure. Appears to be compensated. Continue furosemide. HISTORY SEVERE AORTIC STENOSIS S/P TAVR RIGHT PLEURAL EFFUSION Chronic/stable. CKD III Serum creatinine today = 1.70. Follow. DM TYPE 2 Managed at home with metformin. Check hemoglobin A1c. Hold metformin during hospital stay. Lantus/NovoLog per protocol. VTE PROPHYLAXIS SQ heparin. Ambulate. DISPOSITION To be determined. Skilled care or rehab may be indicated, but patient may be reluctant. Internal Medicine follow-up with Dr. Newsome. . Current Inpatient Medications: Current Inpatient Medications Medications (Trade) Dose Ordered Sig/Neel Route Start Time Stop Time Status Last Admin Dose Admin Heparin Sodium (Porcine) (Heparin Sq 5000 Unit/0.5ml) 5,000 unit Q8 SQ 09/19/17 14:00 10/19/17 13:59 09/20/17 15:50 5,000 UNIT Acetaminophen (Tylenol Tab) 650 mg Q4H PRN PO 09/19/17 12:45 10/19/17 12:44 Aspirin (Ecotrin Tab) 81 mg QAM PO 09/20/17 09:00 10/20/17 08:59 09/20/17 08:56 81 MG Docusate Sodium (coLACE CAP) 100 mg DAILY PO 09/20/17 09:00 10/20/17 08:59 09/20/17 08:55 100 MG Furosemide (Lasix Tab) 80 mg DAILY PO 09/20/17 09:00 10/20/17 08:59 09/20/17 08:55 80 MG Metoprolol Succinate (Toprol Xl Tab) 50 mg Q2D PO 09/19/17 14:00 10/19/17 13:59 09/19/17 14:31 50 MG Multivitamins/ Minerals (Multivitamin W/ Minerals Tab) 1 tab QAM PO 09/20/17 09:00 10/20/17 08:59 09/20/17 08:55 1 TAB Vitamin B Complex (Vitamin B Complex) 1 tab DAILY PO 09/20/17 09:00 10/20/17 08:59 09/20/17 08:56 1 TAB Pantoprazole Sodium (Protonix Tab) 40 mg DAILY PO 09/20/17 09:00 10/20/17 08:59 09/20/17 08:56 40 MG Metoprolol Succinate (Toprol Xl Tab) 100 mg Q2D PO 09/20/17 09:00 10/20/17 08:59 09/20/17 08:56 100 MG
[2017-09-20] MEDS ORDERED: GLUCOSE 10 TABS/TUBE PO PRN (19:00)
[2017-09-20] MEDS ORDERED: DEXTROSE 50% 50 ML SYR IV PRN (19:00)
[2017-09-20] MEDS ORDERED: GLUCOSE 40% GEL 15 GM TUBE PO PRN (19:00)
[2017-09-20] MEDS ORDERED: GLUCAGON FOR INJ 1 MG VIAL SQ PRN (19:00)
[2017-09-20] MEDS: INSULIN ASPART 100 UNITS/ML 3 ML PEN SC SCH (20:27)
[2017-09-20] MEDS: INSULIN GLARGINE SOLOSTAR 100 UNITS/ML 3 ML PEN SC SCH (21:09)
--- NOTE | 2017-09-20 23:28 | DIAGNOSTIC IMAGING REPORT ---
Brain MRI WITHOUT CONTRAST HISTORY: falls change in mental status TECHNIQUE: Multiplanar multisequence MRI of the brain was performed without the use of contrast. COMPARISON STUDY: Head CT 09/19/2017. Brain MRI 11/07/2005. FINDINGS: Punctate focus of increased signal within the right frontal lobe on the DWI sequences. This does not clearly represent loss of signal on the ADC map. However, this still favors an acute infarct. The midline structures are intact. 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 Mucosal thickening within the paranasal sinuses. The mastoid air cells are clear. The major vascular flow voids at the skull base are well-maintained. Moderate atrophic changes within the brain. Old lacunar infarct within the right thalamus. There is no mass, hematoma, or midline shift. Old lacunar infarct within the left cerebellar hemisphere. Periventricular white matter T2 hyperintensity is nonspecific but favors moderate microvascular ischemic change. There is no mass, hematoma, midline shift. IMPRESSION: 1. A punctate acute infarct within the high convexity of the right frontal lobe. 2. Old left frontoparietal infarct. 3. Moderate atrophy and microvascular ischemic changes. Electronically signed by: Isma Godfrey M.D. 09/20/2017 11:27 PM Dictated Date/Time: 09/20/2017 11:21 PM
[2017-09-21] VITALS (9 sets, daily range): BP systolic 111–143; BP diastolic 69–82; PULSE 61–95; TEMP 36.4–36.6; O2SAT 95–99
[2017-09-21 06:17] LABS: HEMATOCRIT 40.2 % (42-52); HEMOGLOBIN 13.6 g/dL (14.0-18.0); MEAN CELL VOLUME 84.8 fL (80-100); MEAN CORPUSCULAR HEMOGLOBIN 28.7 pg (25-34); MEAN CORPUSCULAR HGB CONC 33.8 g/dl (32-36); MEAN PLATELET VOLUME 8.9 fL (7.4-10.4); PLATELET COUNT 112 K/uL (130-400); RED CELL DISTRIBUTION WIDTH SD 49.7 fL (36.4-46.3); WHITE BLOOD COUNT 6.29 K/uL (4.8-10.8)
[2017-09-21] MEDS: HEPARIN SOD 5000 UNIT/0.5 ML CARP SQ SCH ×3 (06:26→21:52)
[2017-09-21 06:41] LABS: CALCIUM 8.5 mg/dl (8.5-10.1); CREATININE 1.54 mg/dl (0.60-1.40); POTASSIUM 3.7 mmol/L (3.5-5.1)
[2017-09-21] MEDS: FUROSEMIDE 80 MG TAB PO SCH (09:39)
[2017-09-21] MEDS: DOCUSATE SODIUM 100 MG CAP PO SCH (09:39)
[2017-09-21] MEDS: PANTOprazole SOD 40 MG TAB PO SCH (09:40)
[2017-09-21] MEDS: CEROVITE ADV FORMULA TAB PO SCH (09:40)
[2017-09-21] MEDS: INSULIN GLARGINE SOLOSTAR 100 UNITS/ML 3 ML PEN SC SCH ×2 (09:41→21:51)
[2017-09-21] MEDS: ASPIRIN 81 MG ECTAB PO SCH (09:41)
[2017-09-21] MEDS: VITAMIN B COMPLEX TAB PO SCH (09:41)
[2017-09-21] MEDS: INSULIN ASPART 100 UNITS/ML 3 ML PEN SC SCH ×4 (09:42→21:51)
--- NOTE | 2017-09-21 11:41 | DIAGNOSTIC IMAGING REPORT ---
CAROTID DOPPLER NECK ART CLINICAL HISTORY: 86 years-old Male presenting with HIGH R PARIETAL INFARCT. TECHNIQUE: Real-time grayscale and color and spectral Doppler ultrasound imaging of the bilateral carotid arteries was performed. NASCET criteria was used in evaluating this study. COMPARISON: None. FINDINGS: Right: Common carotid: Atherosclerosis. Peak systolic velocity 64 cm/s. Internal carotid artery: Atherosclerosis of the proximal ICA. Peak systolic velocity 72 cm/s. Systolic ratio: 1.1. External carotid artery: Atherosclerosis. Peak systolic velocity 90 cm/s. Left: Common carotid: Atherosclerosis. Peak systolic velocity 80 cm/s. Internal carotid artery: Atherosclerosis of the proximal ICA. Peak systolic velocity 54 cm/s. Systolic ratio: 0.7. External carotid artery: Atherosclerosis. Peak systolic velocity 106 cm/s. Antegrade flow in the left vertebral artery. Right vertebral artery not visualized. Reference ranges: Stenosis measurements are compared to reference velocity parameters. Primary parameters: ICA peak systolic velocity (PSV) < 125 cm/s normal or indicating < 50% stenosis; ICA PSV 125-230 cm/s equivalent to 50-69% stenosis; ICA PSV > 230 cm/s equivalent to greater than or equal to 70% stenosis. Additional parameters: ICA PSV to common carotid artery PSV ratio < 2 normal or < 50% stenosis; 2-4 equates to 50-69% stenosis, > 4 equates to greater than or equal to 70% stenosis. Normal ICA end-diastolic velocity less than 40. Blood pressure Not performed. IMPRESSION: Atherosclerosis without hemodynamically significant stenosis seen within the carotid arteries. Electronically signed by: Maximo Briones M.D. 09/21/2017 11:40 AM Dictated Date/Time: 09/21/2017 11:39 AM
--- NOTE | 2017-09-21 12:34 | PROGRESS NOTE ---
DATE: 09/21/2017 I am seeing the patient in followup of change in mental status, falls. His EKG has shown atrial fibrillation with a slow ventricular response. MRI of the brain, acute punctate infarct in high right frontal convexity, moderate chronic ischemic changes. A carotid ultrasound has been ordered. The patient has been on antiplatelet therapy as opposed to anticoagulant therapy due to his fall risk. He seems more content today. He is oriented to hospital. He knows who I am. There is no field cut. No facial asymmetry. No asymmetric weakness. I was able to get him up. He walks modestly wide based with both legs externally rotated. He maybe mildly shuffling with some postural instability, but definitely not parkinsonian. IMPRESSION: 1. This patient has gait dysfunction likely related to a diabetic neuropathy. 2. His decline may have been related to high new infarct. 3. The patient is a poor anticoagulation candidate. I would consider increasing the dose of aspirin to 162 performing a carotid ultrasound and optimize any further risk factors. [facility]
--- NOTE | 2017-09-21 12:45 | Cardiology Follow-Up ---
Subjective General Date of Service: Sep 21, 2017. Chief Complaint: follow up fall Pt evaluation today including: conversation w/ patient, physical exam History of Present Illness The patient is a 86 year old male seen in follow up. I personally observed patient ambulate with assistance of nurse and walker from bathroom back to bed. Gait was extremely unstable. He is more alert today. Denies complaints. 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, DIE MAKER TRIM, 09/30/16) Rosuvastatin (Verified Allergy, Unknown, Myalgias., 09/30/16) Venlafaxine (Verified Allergy, Unknown, Unknown, 09/30/16) Lorazepam (Verified Adverse Reaction, Unknown, Fatigue, 09/30/16) Social History Smoking Status: Former Smoker Hx Tobacco Use In Past Year?: No Hx Alcohol Use - Type And Amou: No Hx Substance Use - Type And Am: No Physical Exam Vital Signs Last Vital Signs Documentation Date Time Temp Pulse Resp B/P (MAP) Pulse Ox O2 Delivery O2 Flow Rate FiO2 09/21/17 08:34 36.6 71 20 135/82 (99) 95 Room Air 09/20/17 12:45 2.0 Physical Exam Constitutional: General Apperance: cachectic Level of Distress: NAD, chronically ill Lungs: Auscultation: no wheezing, no rales/crackles Cardiovascular: Heart Auscultation: irregular rate rhythm, pertinent finding (06/14 SM) Extremities: no edema Assessment and Plan Assessment and Plan Impression: 86-year-old male Falls, generalized weakness Atrial fibrillation, slow ventricular rates at rest, sleep MRI of brain notable for punctate acute infarct within the high convexity of the right frontal lobe. History of CAD, remote CABG, LAD territory stent, transcatheter aortic valve replacement Abdominal aortic aneurysm open repair and then endovascular repair Plan: As noted yesterday. Pt is well known to the undersigned as I have followed him as an outpatient for the last few years, and I had referred him for TAVR. I have not had him on anticoagulation due to concerns of bleeding risks and compliance. After watching his gait, I am not convince his findings on MRI explain his presentation with fall, as he is obviously at fall risk. Despite AF and stroke on MRI, I do not think he is a candidate for coumadin or a DOAC as another fall while anticoagulated would place patient at high risk for a catastrophic bleeding complication. Regarding bradycardia, HRs improved. Continue metoprolol 100 mg daily alternating with 50 mg daily. We could consider increasing his ASA dose or adding clopidogrel for stroke prophylaxis. Will discuss with neuro. Laboratory Results Last 24 Hours Test 09/20/17 20:23 09/21/17 05:36 09/21/17 06:51 Bedside Glucose 142 mg/dl 97 mg/dl White Blood Count 6.29 K/uL Red Blood Count 4.74 M/uL Hemoglobin 13.6 g/dL Hematocrit 40.2 % Mean Corpuscular Volume 84.8 fL Mean Corpuscular Hemoglobin 28.7 pg Mean Corpuscular Hemoglobin Concent 33.8 g/dl RDW Standard Deviation 49.7 fL RDW Coefficient of Variation 16.0 % Platelet Count 112 K/uL Mean Platelet Volume 8.9 fL Sodium Level 138 mmol/L Potassium Level 3.7 mmol/L Chloride Level 105 mmol/L Carbon Dioxide Level 30 mmol/L Anion Gap 3.0 mmol/L Blood Urea Nitrogen 31 mg/dl Creatinine 1.54 mg/dl Est Creatinine Clear Calc Drug Dose 32.9 ml/min Estimated GFR () 46.7 Estimated GFR (Non- 40.3 BUN/Creatinine Ratio 20.0 Random Glucose 99 mg/dl Calcium Level 8.5 mg/dl
[2017-09-21] MEDS: METOPROLOL SUCC 50MG EXT REL TAB PO SCH (15:25)
--- NOTE | 2017-09-21 19:12 | Progress Note ---
Medicine Progress Note Date & Time of Visit: Sep 21, 2017 . Subjective CC: Follow-up visit for stroke and other problems. HPI: Feels well. No chest pain or palpitations. No headache or focal neuro symptoms. Unsteady gait; requires assistance with ambulation. ROS: General- no fever, no chills Resp- no cough; no shortness of breath Cardiac- as noted above in HPI GI- no nausea, no vomiting, no diarrhea, no constipation - no dysuria . Objective Last 8 Hrs Date Time Temp Pulse Resp B/P (MAP) Pulse Ox O2 Delivery O2 Flow Rate FiO2 09/21/17 16:00 96 Room Air 09/21/17 15:17 36.4 95 18 119/72 (88) 98 Room Air 09/21/17 13:07 36.5 76 22 127/72 (90) 96 Room Air 09/21/17 12:00 95 Room Air Physical Exam: General- alert male, lying in bed, no distress ENT- hard of hearing Lungs- clear to auscultation; no respiratory distress Cardiovascular- irregular; II/ systolic murmur at base; no gallop appreciated ; no JVD; no pretibial edema Abdomen- + bowel sounds, soft, nontender Extremities- no cyanosis; no calf tenderness Neuro- alert, oriented Skin- warm & dry . Laboratory Results: Last 24 Hours Test 09/20/17 20:23 09/21/17 05:36 09/21/17 06:51 09/21/17 11:50 Bedside Glucose 142 mg/dl 97 mg/dl 107 mg/dl White Blood Count 6.29 K/uL Red Blood Count 4.74 M/uL Hemoglobin 13.6 g/dL Hematocrit 40.2 % Mean Corpuscular Volume 84.8 fL Mean Corpuscular Hemoglobin 28.7 pg Mean Corpuscular Hemoglobin Concent 33.8 g/dl RDW Standard Deviation 49.7 fL RDW Coefficient of Variation 16.0 % Platelet Count 112 K/uL Mean Platelet Volume 8.9 fL Sodium Level 138 mmol/L Potassium Level 3.7 mmol/L Chloride Level 105 mmol/L Carbon Dioxide Level 30 mmol/L Anion Gap 3.0 mmol/L Blood Urea Nitrogen 31 mg/dl Creatinine 1.54 mg/dl Est Creatinine Clear Calc Drug Dose 32.9 ml/min Estimated GFR () 46.7 Estimated GFR (Non- 40.3 BUN/Creatinine Ratio 20.0 Random Glucose 99 mg/dl Calcium Level 8.5 mg/dl Test 09/21/17 16:31 Bedside Glucose 117 mg/dl Assessment & Plan STROKE Presented with falls and generalized weakness. Neurology consulted. 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 Carotid duplex demonstrated plaque in bilateral internal carotid artery. Known chronic atrial fibrillation. Dewy Rose to be very high risk for anticoagulation due to past and recent falls as well as problems with compliance with anticoagulants in the past. Continue aspirin. 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 WEAKNESS / FALLS May or may not be related to cardiac arrhythmias or stroke. Continue cardiac monitoring. Check orthostatic vital signs. PT/OT evaluations. ATRIAL FIBRILLATION Rate currently controlled, but has episodes of bradycardia with 2-3 second pauses. Continue cardiac monitoring. Titrate beta-iris. Not anticoagulated due to fall risk and past concerns about compliance / safety. Cardiology consulted. CORONARY ARTERY DISEASE History of ischemic heart disease, status post CABG. Denies chest pain. Serum troponin negative. Continue aspirin, metoprolol. CHF History of chronic left ventricular diastolic heart failure. Appears to be compensated. Continue furosemide. HISTORY SEVERE AORTIC STENOSIS S/P TAVR RIGHT PLEURAL EFFUSION Chronic/stable. CKD III Serum creatinine today = 1.54. Follow. DM TYPE 2 Managed at home with metformin. Check hemoglobin A1c. Hold metformin during hospital stay. Lantus/NovoLog per protocol. Fasting blood sugar this morning = 97. VTE PROPHYLAXIS SQ heparin. Ambulate. DISPOSITION To be determined. Skilled care or rehab may be indicated, but patient may be reluctant. Internal Medicine follow-up with Dr. Newsome. . Current Inpatient Medications: Current Inpatient Medications Medications (Trade) Dose Ordered Sig/Neel Route Start Time Stop Time Status Last Admin Dose Admin Heparin Sodium (Porcine) (Heparin Sq 5000 Unit/0.5ml) 5,000 unit Q8 SQ 09/19/17 14:00 10/19/17 13:59 09/21/17 15:26 5,000 UNIT Acetaminophen (Tylenol Tab) 650 mg Q4H PRN PO 09/19/17 12:45 10/19/17 12:44 Aspirin (Ecotrin Tab) 81 mg QAM PO 09/20/17 09:00 10/20/17 08:59 09/21/17 09:41 81 MG Docusate Sodium (coLACE CAP) 100 mg DAILY PO 09/20/17 09:00 10/20/17 08:59 09/21/17 09:39 100 MG Furosemide (Lasix Tab) 80 mg DAILY PO 09/20/17 09:00 10/20/17 08:59 09/21/17 09:39 80 MG Metoprolol Succinate (Toprol Xl Tab) 50 mg Q2D PO 09/19/17 14:00 10/19/17 13:59 09/21/17 15:25 50 MG Multivitamins/ Minerals (Multivitamin W/ Minerals Tab) 1 tab QAM PO 09/20/17 09:00 10/20/17 08:59 09/21/17 09:40 1 TAB Vitamin B Complex (Vitamin B Complex) 1 tab DAILY PO 09/20/17 09:00 10/20/17 08:59 09/21/17 09:41 1 TAB Pantoprazole Sodium (Protonix Tab) 40 mg DAILY PO 09/20/17 09:00 10/20/17 08:59 09/21/17 09:40 40 MG Metoprolol Succinate (Toprol Xl Tab) 100 mg Q2D PO 09/20/17 09:00 10/20/17 08:59 09/20/17 08:56 100 MG Insulin Glargine (Lantus Solostar Pen) BSG UNITS LANTUS... BID SC 09/20/17 21:00 10/20/17 20:59 09/20/17 21:09 6 UNITS Insulin Aspart (novoLOG ASPART) SLIDING SCALE G... ACHS SC 09/20/17 21:00 10/20/17 20:59 09/21/17 17:32 3 UNITS Glucose (Glucose 40% Gel) 15-30 GRAMS 15 GRAMS... UD PRN PO 09/20/17 19:00 10/20/17 18:59 Glucose (Glucose Chew Tab) 4-8 Tablets 4 Tabl... UD PRN PO 09/20/17 19:00 10/20/17 18:59 Dextrose (Dextrose 50% 50ML Syringe) 25-50ML OF 50% DW IV FOR... UD PRN IV 09/20/17 19:00 10/20/17 18:59 Glucagon (Glucagon Inj) 1 mg UD PRN SQ 09/20/17 19:00 10/20/17 18:59
[2017-09-22 00:35] VITALS: BP 157/76; PULSE 66; TEMP 37; O2SAT 97
[2017-09-22 03:15] VITALS: BP_SYST 164; BP_SYST 165; BP_DIAS 102; BP_DIAS 107; PULSE 81; TEMP 36.7; O2SAT 97
[2017-09-22] MEDS: HEPARIN SOD 5000 UNIT/0.5 ML CARP SQ SCH ×3 (05:49→21:13)
[2017-09-22 06:35] LABS: CALCIUM 8.8 mg/dl (8.5-10.1); CREATININE 1.64 mg/dl (0.60-1.40); POTASSIUM 3.9 mmol/L (3.5-5.1)
[2017-09-22 07:16] LABS: HEMOGLOBIN A1C 6.3 % (4.5-5.6)
[2017-09-22] MEDS: INSULIN GLARGINE SOLOSTAR 100 UNITS/ML 3 ML PEN SC SCH ×2 (07:38→21:15)
[2017-09-22] MEDS: ASPIRIN 81 MG ECTAB PO SCH (07:45)
[2017-09-22] MEDS: VITAMIN B COMPLEX TAB PO SCH (07:45)
[2017-09-22] MEDS: CEROVITE ADV FORMULA TAB PO SCH (07:45)
[2017-09-22] MEDS: FUROSEMIDE 80 MG TAB PO SCH (07:45)
[2017-09-22] MEDS: DOCUSATE SODIUM 100 MG CAP PO SCH (07:46)
[2017-09-22] MEDS: PANTOprazole SOD 40 MG TAB PO SCH (07:46)
[2017-09-22] MEDS: INSULIN ASPART 100 UNITS/ML 3 ML PEN SC SCH ×4 (08:00→21:15)
[2017-09-22 08:07] VITALS: BP_SYST 154; BP_SYST 155; BP_DIAS 84; BP_DIAS 87; BP_DIAS 90; PULSE 75; PULSE 84; PULSE 85; TEMP 36.6; O2SAT 93
[2017-09-22] MEDS: METOPROLOL SUCC 50MG EXT REL TAB PO SCH (11:57)
[2017-09-22 12:11] VITALS: BP 113/70; PULSE 84; TEMP 36; O2SAT 93
[2017-09-22] MEDS ORDERED: ASPIRIN 81 MG ECTAB PO STA (13:56)
--- NOTE | 2017-09-22 14:22 | Neurology Progress Notes ---
Neurology Progress Note Date of Service Sep 22, 2017. Stephane Davis is a 86 year old male PMH DL, CVA, Afib- not on coumadin, CHF, DM, CABG 1979, NSTEMI cath 07/14/15, depression, who presents to the ED with frequent falls and generalized weakness. He was brought into the hospital by his son. Son reports that he recently moved in with his father into a mobile home. About 3 weeks ago, the son reports he came home from work and found his father on the floor face down and unable to arouse him. Since then there was generalized weakness and difficulty getting around. He feels he has been weak several years but the weakness has been worse recently. He feels his son wants him in a intermediate because he is getting weak and has had falls but this time there was no fall. denies CP, SOB, abdominal pain, ones sided weakness, falls, swallowing difficulty, slurred speech, N, V, vision changes. He is sitting up bedside and states he is doing ok. Objective Date Time Temp Pulse Resp B/P (MAP) Pulse Ox O2 Delivery O2 Flow Rate FiO2 09/22/17 12:11 36.0 84 20 113/70 (84) 93 Room Air 84 09/22/17 12:00 Room Air 09/22/17 08:07 36.6 75 20 154/84 (107) 93 Room Air 84 155/87 (109) 85 154/90 (111) 09/22/17 08:00 Room Air 09/22/17 04:00 Room Air 09/22/17 03:15 36.7 81 18 164/102 (122) 97 165/107 (126) 09/22/17 00:35 37.0 66 18 157/76 (103) 97 09/21/17 23:59 Room Air 09/21/17 20:00 Room Air 09/21/17 19:31 36.5 68 16 111/69 (83) 97 Room Air 09/21/17 16:00 96 Room Air 09/21/17 15:17 36.4 95 18 119/72 (88) 98 Room Air Last 24 Hours Test 09/21/17 16:31 09/21/17 20:24 09/22/17 05:32 09/22/17 06:54 Bedside Glucose 117 mg/dl 166 mg/dl 86 mg/dl Sodium Level 138 mmol/L Potassium Level 3.9 mmol/L Chloride Level 102 mmol/L Carbon Dioxide Level 31 mmol/L Anion Gap 5.0 mmol/L Blood Urea Nitrogen 32 mg/dl Creatinine 1.64 mg/dl Est Creatinine Clear Calc Drug Dose 30.6 ml/min Estimated GFR () 43.2 Estimated GFR (Non- 37.3 BUN/Creatinine Ratio 19.4 Random Glucose 90 mg/dl Calcium Level 8.8 mg/dl Triglycerides Level 84 mg/dl Cholesterol Level 183 mg/dl HDL Cholesterol 52 mg/dl LDL Cholesterol, Calculated 114 mg/dl VLDL Cholesterol, Calculated 17 mg/dl Cholesterol/HDL Ratio 3.5 Test 09/22/17 10:57 Bedside Glucose 200 mg/dl Imaging: carotid doppler- Atherosclerosis without hemodynamically significant stenosis seen within the carotid arteries. 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, hip flex plantar flex ext 4/5 bilaterally Current Inpatient Medications Medications (Trade) Dose Ordered Sig/Neel Route Start Time Stop Time Status Last Admin Dose Admin Heparin Sodium (Porcine) (Heparin Sq 5000 Unit/0.5ml) 5,000 unit Q8 SQ 09/19/17 14:00 10/19/17 13:59 09/22/17 05:49 5,000 UNIT Acetaminophen (Tylenol Tab) 650 mg Q4H PRN PO 09/19/17 12:45 10/19/17 12:44 Docusate Sodium (coLACE CAP) 100 mg DAILY PO 09/20/17 09:00 10/20/17 08:59 09/22/17 07:46 100 MG Furosemide (Lasix Tab) 80 mg DAILY PO 09/20/17 09:00 10/20/17 08:59 09/22/17 07:45 80 MG Metoprolol Succinate (Toprol Xl Tab) 50 mg Q2D PO 09/19/17 14:00 10/19/17 13:59 09/21/17 15:25 50 MG Multivitamins/ Minerals (Multivitamin W/ Minerals Tab) 1 tab QAM PO 09/20/17 09:00 10/20/17 08:59 09/22/17 07:45 1 TAB Vitamin B Complex (Vitamin B Complex) 1 tab DAILY PO 09/20/17 09:00 10/20/17 08:59 09/22/17 07:45 1 TAB Pantoprazole Sodium (Protonix Tab) 40 mg DAILY PO 09/20/17 09:00 10/20/17 08:59 09/22/17 07:46 40 MG Metoprolol Succinate (Toprol Xl Tab) 100 mg Q2D PO 09/20/17 09:00 10/20/17 08:59 09/22/17 11:57 100 MG Insulin Glargine (Lantus Solostar Pen) BSG UNITS LANTUS... BID SC 09/20/17 21:00 10/20/17 20:59 09/21/17 21:51 6 UNITS Insulin Aspart (novoLOG ASPART) SLIDING SCALE G... ACHS SC 09/20/17 21:00 10/20/17 20:59 09/22/17 12:43 3 UNITS Glucose (Glucose 40% Gel) 15-30 GRAMS 15 GRAMS... UD PRN PO 09/20/17 19:00 10/20/17 18:59 Glucose (Glucose Chew Tab) 4-8 Tablets 4 Tabl... UD PRN PO 09/20/17 19:00 10/20/17 18:59 Dextrose (Dextrose 50% 50ML Syringe) 25-50ML OF 50% DW IV FOR... UD PRN IV 09/20/17 19:00 10/20/17 18:59 Glucagon (Glucagon Inj) 1 mg UD PRN SQ 09/20/17 19:00 10/20/17 18:59 Aspirin (Ecotrin Tab) 162 mg QAM PO 09/23/17 09:00 10/23/17 08:59 Impression 86 year old male generalize progressive weakness and falls. Plan 1. CT head no acute bleed 2. afib not on coumadin due to fall risk- aspirin increased from 81 mg daily to 162 mg daily 3. DM peripheral neuropathy bilaterally likely contributing to gait issues 4. PT/OT for discharge needs 5. carotid doppler without significant stenosis 6. medical management per primary service 7. MRI brain with acute stroke 8. will need rehab or high level of care for discharge. neurology follow up 2-3 weeks after discharge from rehab, DR Angelia Smallwood, or Angelia Peralta PAC schedule. I have seen and discussed above patient with Dr Angelia Smallwood, neurology PT seen and examined, oriented, but mildly suspicious. Suspect at least low level delirium., exam is nonfocal. SANGEETHA Smallwood MD
--- NOTE | 2017-09-22 14:44 | Cardiology Follow-Up ---
Subjective General Date of Service: Sep 22, 2017. Chief Complaint: follow up fall Pt evaluation today including: conversation w/ patient, physical exam History of Present Illness The patient is a 86 year old male seen in follow up. Patient feeling well. Telemetry reveals atrial fibrillation. V rates down to 40 bpm with sleep, but improve when awake. 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) Rosuvastatin (Verified Allergy, Unknown, Myalgias., 09/30/16) Venlafaxine (Verified Allergy, Unknown, Unknown, 09/30/16) Lorazepam (Verified Adverse Reaction, Unknown, Fatigue, 09/30/16) Social History Smoking Status: Former Smoker Hx Tobacco Use In Past Year?: No Hx Alcohol Use - Type And Amou: No Hx Substance Use - Type And Am: No Physical Exam Vital Signs Last Vital Signs Documentation Date Time Temp Pulse Resp B/P (MAP) Pulse Ox O2 Delivery O2 Flow Rate FiO2 09/22/17 12:11 36.0 84 20 113/70 (84) 93 Room Air 84 09/20/17 12:45 2.0 Physical Exam Constitutional: General Apperance: cachectic Level of Distress: NAD, chronically ill Lungs: Auscultation: no wheezing, no rales/crackles Cardiovascular: Heart Auscultation: irregular rate rhythm, pertinent finding (1/6 SM) Musculoskeletal: pertinent finding (chachectic) Extremities: no edema Neurologic: Gait & Station: waddling Assessment and Plan Assessment and Plan Impression: 86-year-old male Falls, generalized weakness , peripheral neuropathy Atrial fibrillation, slow ventricular rates at rest, sleep MRI of brain notable for punctate acute infarct within the high convexity of the right frontal lobe. History of CAD, remote CABG, LAD territory stent, transcatheter aortic valve replacement Abdominal aortic aneurysm open repair and then endovascular repair Plan: HR is stable, do no think fall risk or energy level would improve with permanent pacemaker. Continue metoprolol, current dose. Pt is not a candidate for anticoagulation. Increase aspirin to 162 mg daily. Laboratory Results Last 24 Hours Test 09/21/17 16:31 09/21/17 20:24 09/22/17 05:32 09/22/17 06:54 Bedside Glucose 117 mg/dl 166 mg/dl 86 mg/dl Sodium Level 138 mmol/L Potassium Level 3.9 mmol/L Chloride Level 102 mmol/L Carbon Dioxide Level 31 mmol/L Anion Gap 5.0 mmol/L Blood Urea Nitrogen 32 mg/dl Creatinine 1.64 mg/dl Est Creatinine Clear Calc Drug Dose 30.6 ml/min Estimated GFR () 43.2 Estimated GFR (Non- 37.3 BUN/Creatinine Ratio 19.4 Random Glucose 90 mg/dl Calcium Level 8.8 mg/dl Triglycerides Level 84 mg/dl Cholesterol Level 183 mg/dl HDL Cholesterol 52 mg/dl LDL Cholesterol, Calculated 114 mg/dl VLDL Cholesterol, Calculated 17 mg/dl Cholesterol/HDL Ratio 3.5 Test 09/22/17 10:57 Bedside Glucose 200 mg/dl
[2017-09-22 16:11] VITALS: BP 106/55; PULSE 67; TEMP 36.2; O2SAT 100
[2017-09-22 19:54] VITALS: BP 114/71; PULSE 82; TEMP 34.8; TEMP 36.8; O2SAT 100
--- NOTE | 2017-09-22 19:59 | Progress Note ---
Medicine Progress Note Date & Time of Visit: Sep 22, 2017 at 15:00 . Subjective CC: Follow-up visit for stroke, ambulatory dysfunction, and other problems. HPI: Doing well. No chest pain or palpitations. No headache or focal neuro symptoms. Still has unsteady gait and requires assistance with ambulation. ROS: General- no fever, no chills Resp- no cough; no shortness of breath Cardiac- as noted above in HPI GI- no nausea, no vomiting, no diarrhea - no urinary symptoms . Objective Last 8 Hrs Date Time Temp Pulse Resp B/P (MAP) Pulse Ox O2 Delivery O2 Flow Rate FiO2 09/22/17 19:54 34.8 82 17 114/71 (85) 100 09/22/17 16:11 36.2 67 16 106/55 (72) 100 09/22/17 16:00 Room Air 09/22/17 12:11 36.0 84 20 113/70 (84) 93 Room Air 84 09/22/17 12:00 Room Air Physical Exam: General- elderly male, lying in bed, no distress ENT- hard of hearing Lungs- clear to auscultation; no respiratory distress Cardiovascular- irregular; II/ systolic murmur at base; no gallop appreciated ; no JVD; no pretibial edema Abdomen- + bowel sounds, soft, nontender Extremities- no cyanosis; no calf tenderness Neuro- alert, oriented, mild confusion; PERRL, EOMI; motor strength upper and lower extremities grossly intact Skin- warm & dry . Laboratory Results: Last 24 Hours Test 09/21/17 20:24 09/22/17 05:32 09/22/17 06:54 09/22/17 10:57 Bedside Glucose 166 mg/dl 86 mg/dl 200 mg/dl Sodium Level 138 mmol/L Potassium Level 3.9 mmol/L Chloride Level 102 mmol/L Carbon Dioxide Level 31 mmol/L Anion Gap 5.0 mmol/L Blood Urea Nitrogen 32 mg/dl Creatinine 1.64 mg/dl Est Creatinine Clear Calc Drug Dose 30.6 ml/min Estimated GFR () 43.2 Estimated GFR (Non- 37.3 BUN/Creatinine Ratio 19.4 Random Glucose 90 mg/dl Calcium Level 8.8 mg/dl Triglycerides Level 84 mg/dl Cholesterol Level 183 mg/dl HDL Cholesterol 52 mg/dl LDL Cholesterol, Calculated 114 mg/dl VLDL Cholesterol, Calculated 17 mg/dl Cholesterol/HDL Ratio 3.5 Assessment & Plan STROKE Presented with falls and generalized weakness. Neurology consulted. 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 Carotid duplex demonstrated plaque in bilateral internal carotid artery. Known chronic atrial fibrillation. Gonzales to be very high risk for anticoagulation due to past and recent falls as well as problems with compliance with anticoagulants in the past. Continue aspirin. 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 WEAKNESS / FALLS May or may not be related to cardiac arrhythmias or stroke. Continue cardiac monitoring. PT/OT. Fall precautions. ATRIAL FIBRILLATION Rate currently controlled, but has had episodes of bradycardia with 2-3 second pauses. Continue cardiac monitoring. Titrate beta-iris. Not anticoagulated due to fall risk and past concerns about compliance / safety. Cardiology consulted. CORONARY ARTERY DISEASE History of ischemic heart disease, status post CABG. Denies chest pain. Serum troponin negative. Continue aspirin, metoprolol. CHF History of chronic left ventricular diastolic heart failure. Appears to be compensated. Continue furosemide. HISTORY SEVERE AORTIC STENOSIS S/P TAVR RIGHT PLEURAL EFFUSION Chronic/stable. CKD III Serum creatinine today = 1.64. Follow. DM TYPE 2 Managed at home with metformin. Check hemoglobin A1c. Hold metformin during hospital stay. Lantus/NovoLog per protocol. Fasting blood sugar this morning = 86. VTE PROPHYLAXIS SQ heparin. Ambulate. DISPOSITION To be determined. Anticipated need for skilled care or rehab. Internal Medicine follow-up with Dr. Newsome. Cardiology follow-up with Dr. Campos. Neurology follow-up with Dr. Jimenez or Angelia Peralta PA-C . Current Inpatient Medications: Current Inpatient Medications Medications (Trade) Dose Ordered Sig/Neel Route Start Time Stop Time Status Last Admin Dose Admin Heparin Sodium (Porcine) (Heparin Sq 5000 Unit/0.5ml) 5,000 unit Q8 SQ 09/19/17 14:00 10/19/17 13:59 09/22/17 15:09 5,000 UNIT Acetaminophen (Tylenol Tab) 650 mg Q4H PRN PO 09/19/17 12:45 10/19/17 12:44 Docusate Sodium (coLACE CAP) 100 mg DAILY PO 09/20/17 09:00 10/20/17 08:59 09/22/17 07:46 100 MG Furosemide (Lasix Tab) 80 mg DAILY PO 09/20/17 09:00 10/20/17 08:59 09/22/17 07:45 80 MG Metoprolol Succinate (Toprol Xl Tab) 50 mg Q2D PO 09/19/17 14:00 10/19/17 13:59 09/21/17 15:25 50 MG Multivitamins/ Minerals (Multivitamin W/ Minerals Tab) 1 tab QAM PO 09/20/17 09:00 10/20/17 08:59 09/22/17 07:45 1 TAB Vitamin B Complex (Vitamin B Complex) 1 tab DAILY PO 09/20/17 09:00 10/20/17 08:59 09/22/17 07:45 1 TAB Pantoprazole Sodium (Protonix Tab) 40 mg DAILY PO 09/20/17 09:00 10/20/17 08:59 09/22/17 07:46 40 MG Metoprolol Succinate (Toprol Xl Tab) 100 mg Q2D PO 09/20/17 09:00 10/20/17 08:59 09/22/17 11:57 100 MG Insulin Glargine (Lantus Solostar Pen) BSG UNITS LANTUS... BID SC 09/20/17 21:00 10/20/17 20:59 09/21/17 21:51 6 UNITS Insulin Aspart (novoLOG ASPART) SLIDING SCALE G... ACHS SC 09/20/17 21:00 10/20/17 20:59 09/22/17 16:59 2 UNITS Glucose (Glucose 40% Gel) 15-30 GRAMS 15 GRAMS... UD PRN PO 09/20/17 19:00 10/20/17 18:59 Glucose (Glucose Chew Tab) 4-8 Tablets 4 Tabl... UD PRN PO 09/20/17 19:00 10/20/17 18:59 Dextrose (Dextrose 50% 50ML Syringe) 25-50ML OF 50% DW IV FOR... UD PRN IV 09/20/17 19:00 10/20/17 18:59 Glucagon (Glucagon Inj) 1 mg UD PRN SQ 09/20/17 19:00 10/20/17 18:59 Aspirin (Ecotrin Tab) 162 mg QAM PO 09/23/17 09:00 10/23/17 08:59
[2017-09-23] VITALS (8 sets, daily range): BP systolic 103–137; BP diastolic 67–89; PULSE 63–80; TEMP 36.4–37; O2SAT 95–97
[2017-09-23] MEDS: HEPARIN SOD 5000 UNIT/0.5 ML CARP SQ SCH ×3 (05:55→20:43)
[2017-09-23 06:10] LABS: HEMATOCRIT 40.5 % (42-52); HEMOGLOBIN 13.9 g/dL (14.0-18.0); MEAN CELL VOLUME 84.6 fL (80-100); MEAN CORPUSCULAR HGB CONC 34.3 g/dl (32-36); MEAN PLATELET VOLUME 9.2 fL (7.4-10.4); PLATELET COUNT 127 K/uL (130-400); RED CELL DISTRIBUTION WIDTH CV 16.1 % (11.5-14.5); RED CELL DISTRIBUTION WIDTH SD 49.8 fL (36.4-46.3); WHITE BLOOD COUNT 6.29 K/uL (4.8-10.8)
[2017-09-23 06:50] LABS: CREATININE 1.82 mg/dl (0.60-1.40)
[2017-09-23] MEDS: INSULIN ASPART 100 UNITS/ML 3 ML PEN SC SCH ×4 (07:00→20:35)
[2017-09-23] MEDS: INSULIN GLARGINE SOLOSTAR 100 UNITS/ML 3 ML PEN SC SCH ×2 (07:20→20:42)
[2017-09-23] MEDS: VITAMIN B COMPLEX TAB PO SCH (08:31)
[2017-09-23] MEDS: ASPIRIN 81 MG ECTAB PO SCH (08:31)
[2017-09-23] MEDS: PANTOprazole SOD 40 MG TAB PO SCH (08:31)
[2017-09-23] MEDS: CEROVITE ADV FORMULA TAB PO SCH (08:32)
[2017-09-23] MEDS: DOCUSATE SODIUM 100 MG CAP PO SCH (08:32)
[2017-09-23] MEDS: FUROSEMIDE 80 MG TAB PO SCH (08:32)
--- NOTE | 2017-09-23 12:28 | Progress Note ---
Internal Med Progress Note Date of Service: Sep 23, 2017. Provider Documentation: SUBJECTIVE: The patient was seen and examined in telemetry unit. He was admitted with recurrent falls and noted to have a stroke on MRI. He remains generally weak but no focal weakness noted. Does not have any other complaints today and waiting to go for rehab OBJECTIVE: Vital Signs-as noted below Exam: General-no distress at rest Eyes-normal ENT-normal Neck-supple Lungs-clear to auscultate bilaterally Heart-S1-S2 irregular Abdomen-benign, soft, nontender, bowel sounds present Extremities-no edema Neuro-very deaf, generally weak No focal neuro deficit Lab data as noted below. ASSESSMENT & PLAN: STROKE-Acute infarct within the right frontal lobe Presented with falls and generalized weakness. 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 Carotid duplex demonstrated plaque in bilateral internal carotid artery. Known chronic atrial fibrillation. [place] to be very high risk for anticoagulation due to past and recent falls as well as problems with compliance with anticoagulants in the past. Appreciate Neurology input and recommendation. 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 WEAKNESS / FALLS May or may not be related to cardiac arrhythmias or stroke. Continue cardiac monitoring. Fall precaution Will need placement ATRIAL FIBRILLATION-rate is controlled Rate currently controlled, but has had episodes of bradycardia with 2-3 second pauses. Continue cardiac monitoring. Titrate beta-iris. Not anticoagulated due to fall risk and past concerns about compliance / safety. Appreciate Cardiology input CORONARY ARTERY DISEASE History of ischemic heart disease, status post CABG. Denies chest pain. Serum troponin negative. Continue aspirin, metoprolol. CHF History of chronic left ventricular diastolic heart failure. Appears to be compensated. Continue furosemide. HISTORY SEVERE AORTIC STENOSIS S/P TAVR RIGHT PLEURAL EFFUSION Chronic/stable. CKD III Serum creatinine today = 1.64. Follow. DM TYPE 2 Managed at home with metformin. Check hemoglobin A1c. Hold metformin during hospital stay. Lantus/NovoLog per protocol. Fasting blood sugar this morning = 86. VTE PROPHYLAXIS SQ heparin. Ambulate. DISPOSITION To be determined. Anticipated need for skilled care or rehab-awaiting placement. Internal Medicine follow-up with Dr. Newsome. Cardiology follow-up with Dr. Campos. Neurology follow-up with Dr. Jimenez or Angelia Peralta PA-C . Vital Signs: Date Time Temp Pulse Resp B/P (MAP) Pulse Ox O2 Delivery O2 Flow Rate FiO2 09/23/17 10:42 36.4 73 20 103/67 (79) 96 Room Air 09/23/17 08:00 Room Air 09/23/17 07:38 36.6 73 20 123/71 (88) 96 Room Air 09/23/17 04:00 Room Air 09/23/17 03:40 37.0 79 18 121/69 (86) 95 Room Air 09/23/17 00:19 37.0 73 18 137/89 (105) 96 09/23/17 00:01 Room Air 09/22/17 20:00 Room Air 09/22/17 19:54 36.8 82 17 114/71 (85) 100 09/22/17 16:11 36.2 67 16 106/55 (72) 100 09/22/17 16:00 Room Air Lab Results: Results Past 24 Hours Test 09/22/17 16:21 09/22/17 20:44 09/23/17 05:34 09/23/17 06:53 Range/Units Bedside Glucose 98 232 96 70-99 mg/dl White Blood Count 6.29 4.8-10.8 K/uL Red Blood Count 4.79 4.7-6.1 M/uL Hemoglobin 13.9 14.0-18.0 g/dL Hematocrit 40.5 42-52 % Mean Corpuscular Volume 84.6 80-100 fL Mean Corpuscular Hemoglobin 29.0 25-34 pg Mean Corpuscular Hemoglobin Concent 34.3 32-36 g/dl RDW Standard Deviation 49.8 36.4-46.3 fL RDW Coefficient of Variation 16.1 11.5-14.5 % Platelet Count 127 130-400 K/uL Mean Platelet Volume 9.2 7.4-10.4 fL Sodium Level 138 136-145 mmol/L Potassium Level 4.0 3.5-5.1 mmol/L Chloride Level 103 98-107 mmol/L Carbon Dioxide Level 33 21-32 mmol/L Anion Gap 2.0 3-11 mmol/L Blood Urea Nitrogen 37 7-18 mg/dl Creatinine 1.82 0.60-1.40 mg/dl Est Creatinine Clear Calc Drug Dose 27.7 ml/min Estimated GFR () 38.1 Estimated GFR (Non- 32.9 BUN/Creatinine Ratio 20.1 10-20 Random Glucose 86 70-99 mg/dl Calcium Level 9.0 8.5-10.1 mg/dl Test 09/23/17 11:41 Range/Units Bedside Glucose 197 70-99 mg/dl
[2017-09-23] MEDS: METOPROLOL SUCC 50MG EXT REL TAB PO SCH (13:48)
--- NOTE | 2017-09-23 15:05 | Cardiology Follow-Up ---
Subjective General Date of Service: Sep 23, 2017. Chief Complaint: follow up fall Pt evaluation today including: conversation w/ patient, conversation w/ family , physical exam History of Present Illness The patient is a 86 year old male seen in follow up. No complaints. Telemetry reveals stable AF. 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, 09/30/16) Rosuvastatin (Verified Allergy, Unknown, Myalgias., 09/30/16) Venlafaxine (Verified Allergy, Unknown, Unknown, 09/30/16) Lorazepam (Verified Adverse Reaction, Unknown, Fatigue, 09/30/16) Social History Smoking Status: Former Smoker Hx Tobacco Use In Past Year?: No Hx Alcohol Use - Type And Amou: No Hx Substance Use - Type And Am: No Physical Exam Vital Signs Last Vital Signs Documentation Date Time Temp Pulse Resp B/P (MAP) Pulse Ox O2 Delivery O2 Flow Rate FiO2 09/23/17 12:00 Room Air 09/23/17 10:42 36.4 73 20 103/67 (79) 96 09/20/17 12:45 2.0 Physical Exam Constitutional: General Apperance: cachectic Level of Distress: NAD, chronically ill Lungs: Auscultation: no wheezing, no rales/crackles Cardiovascular: Heart Auscultation: irregular rate rhythm, pertinent finding (1/6 SM) Musculoskeletal: pertinent finding (chachectic) Extremities: no edema Neurologic: Gait & Station: waddling Assessment and Plan Assessment and Plan Impression: 86-year-old male Falls, generalized weakness , peripheral neuropathy Atrial fibrillation, slow ventricular rates at rest, sleep MRI of brain notable for punctate acute infarct within the high convexity of the right frontal lobe. History of CAD, remote CABG, LAD territory stent, transcatheter aortic valve replacement Abdominal aortic aneurysm open repair and then endovascular repair Plan: Continue metoprolol, current dose. Pt is not a candidate for anticoagulation. Increase aspirin to 162 mg daily. Agree with transfer to [facility] when a bed is available. Ok to transfer to general medical floor while awaiting bed. I called pt's son, Marcos, and updated him with the above plan. Laboratory Results Last 24 Hours Test 09/22/17 16:21 4/16/18 20:44 09/23/17 05:34 09/23/17 06:53 Bedside Glucose 98 mg/dl 232 mg/dl 96 mg/dl White Blood Count 6.29 K/uL Red Blood Count 4.79 M/uL Hemoglobin 13.9 g/dL Hematocrit 40.5 % Mean Corpuscular Volume 84.6 fL Mean Corpuscular Hemoglobin 29.0 pg Mean Corpuscular Hemoglobin Concent 34.3 g/dl RDW Standard Deviation 49.8 fL RDW Coefficient of Variation 16.1 % Platelet Count 127 K/uL Mean Platelet Volume 9.2 fL Sodium Level 138 mmol/L Potassium Level 4.0 mmol/L Chloride Level 103 mmol/L Carbon Dioxide Level 33 mmol/L Anion Gap 2.0 mmol/L Blood Urea Nitrogen 37 mg/dl Creatinine 1.82 mg/dl Est Creatinine Clear Calc Drug Dose 27.7 ml/min Estimated GFR () 38.1 Estimated GFR (Non- 32.9 BUN/Creatinine Ratio 20.1 Random Glucose 86 mg/dl Calcium Level 9.0 mg/dl Test 09/23/17 11:41 Bedside Glucose 197 mg/dl
[2017-09-24] MEDS: HEPARIN SOD 5000 UNIT/0.5 ML CARP SQ SCH ×2 (06:21→13:42)
[2017-09-24 07:08] VITALS: BP 134/79; PULSE 75; TEMP 36.3; O2SAT 94
[2017-09-24 07:38] LABS: CALCIUM 8.7 mg/dl (8.5-10.1); CREATININE 1.83 mg/dl (0.60-1.40); POTASSIUM 3.9 mmol/L (3.5-5.1)
[2017-09-24] MEDS: INSULIN GLARGINE SOLOSTAR 100 UNITS/ML 3 ML PEN SC SCH (07:53)
[2017-09-24] MEDS: CEROVITE ADV FORMULA TAB PO SCH (07:54)
[2017-09-24] MEDS: PANTOprazole SOD 40 MG TAB PO SCH (07:54)
[2017-09-24] MEDS: METOPROLOL SUCC 50MG EXT REL TAB PO SCH (07:54)
[2017-09-24] MEDS: VITAMIN B COMPLEX TAB PO SCH (07:54)
[2017-09-24] MEDS: FUROSEMIDE 80 MG TAB PO SCH (07:55)
[2017-09-24] MEDS: ASPIRIN 81 MG ECTAB PO SCH (07:55)
[2017-09-24] MEDS: DOCUSATE SODIUM 100 MG CAP PO SCH (07:55)
[2017-09-24] MEDS: INSULIN ASPART 100 UNITS/ML 3 ML PEN SC SCH ×2 (07:57→11:55)
--- NOTE | 2017-09-24 13:57 | Progress Note ---
Internal Med Progress Note Date of Service: Sep 24, 2017. Provider Documentation: SUBJECTIVE: The patient was seen and examined in telemetry unit. He was admitted with recurrent falls and noted to have a stroke on MRI. He remains generally weak but no focal weakness noted. Complained some back pain relieved with Tylenol OBJECTIVE: Vital Signs-as noted below Exam: General-no distress at rest Eyes-normal ENT-normal Neck-supple Lungs-clear to auscultate bilaterally Heart-S1-S2 irregular Abdomen-benign, soft, nontender, bowel sounds present No tenderness in Renal angles Extremities-no edema Neuro-very deaf, generally weak No focal neuro deficit Lab data as noted below. ASSESSMENT & PLAN: STROKE-Acute infarct within the right frontal lobe Presented with falls and generalized weakness. 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 Carotid duplex demonstrated plaque in bilateral internal carotid artery. Known chronic atrial fibrillation. [place] to be very high risk for anticoagulation due to past and recent falls as well as problems with compliance with anticoagulants in the past. Appreciate Neurology input and recommendation. Continue aspirin and the dose is increased to 162 mg Remains stable to be discharged to [facility] WEAKNESS / FALLS May or may not be related to cardiac arrhythmias or stroke. Continue cardiac monitoring. Fall precaution Will need placement ATRIAL FIBRILLATION-rate is controlled Rate currently controlled, but has had episodes of bradycardia with 2-3 second pauses. Continue cardiac monitoring. Titrate beta-iris. Not anticoagulated due to fall risk and past concerns about compliance / safety. Appreciate Cardiology input CORONARY ARTERY DISEASE History of ischemic heart disease, status post CABG. Denies chest pain. Serum troponin negative. Continue aspirin, metoprolol. CHF History of chronic left ventricular diastolic heart failure. Appears to be compensated. Continue furosemide. HISTORY SEVERE AORTIC STENOSIS S/P TAVR RIGHT PLEURAL EFFUSION Chronic/stable. CKD III Serum creatinine today = 1.64. Follow. DM TYPE 2 Managed at home with metformin. Check hemoglobin A1c. Hold metformin during hospital stay. Lantus/NovoLog per protocol. Fasting blood sugar this morning = 86. VTE PROPHYLAXIS SQ heparin. Ambulate. DISPOSITION To be determined. Anticipated need for skilled care or rehab-awaiting placement. Internal Medicine follow-up with Dr. Newsome. Cardiology follow-up with Dr. Campos. Neurology follow-up with Dr. Jimenez or Angelia Peralta PA-C . Vital Signs: Date Time Temp Pulse Resp B/P (MAP) Pulse Ox O2 Delivery O2 Flow Rate FiO2 09/24/17 08:15 Room Air 09/24/17 07:08 36.3 75 20 134/79 (97) 94 Room Air 09/24/17 00:00 Room Air 09/23/17 23:36 36.4 71 18 112/67 (82) 95 Room Air 09/23/17 16:00 36.5 63 16 113/73 (86) 96 Room Air 09/23/17 16:00 Room Air 09/23/17 15:34 36.7 80 16 97 2.0 09/23/17 15:00 36.7 80 16 120/71 (87) 97 Room Air Lab Results: Results Past 24 Hours Test 09/23/17 16:35 09/23/17 20:13 09/24/17 06:47 09/24/17 07:35 Range/Units Bedside Glucose 129 111 85 70-99 mg/dl Sodium Level 138 136-145 mmol/L Potassium Level 3.9 3.5-5.1 mmol/L Chloride Level 102 98-107 mmol/L Carbon Dioxide Level 30 21-32 mmol/L Anion Gap 7.0 3-11 mmol/L Blood Urea Nitrogen 36 7-18 mg/dl Creatinine 1.83 0.60-1.40 mg/dl Est Creatinine Clear Calc Drug Dose 27.8 ml/min Estimated GFR () 37.9 Estimated GFR (Non- 32.7 BUN/Creatinine Ratio 19.7 10-20 Random Glucose 87 70-99 mg/dl Calcium Level 8.7 8.5-10.1 mg/dl Test 09/24/17 11:25 Range/Units Bedside Glucose 158 70-99 mg/dl
--- NOTE | 2017-09-24 14:12 | Discharge Instructions ---
Discharge Instructions Date of Service Sep 24, 2017. Admission Reason for Admission: Falls,Weakness Discharge Discharge Diagnosis / Problem: stroke Discharge Goals Goal(s): Prevent Disease Progression Activity Recommendations Activity Level: Assistance Required Therapies: Physical Therapy, Occupational Therapy, Speech Therapy . Additional Information Patient informed of condition: Yes Advance Directives: No DNR: Yes Level of Care: Skilled Communicable Disease: No Prognosis: Stable Oxygen at (LPM): 2 liter/min via NC as needed Hernandez Catheter: No Instructions / Follow-Up Instructions / Follow-Up Please make an appointment with your PCP in 1 week and Neurologist in 2 to 3 weeks following discharge from [facility] Diet Patient's current hospital diet: AHA Diet (Heart Healthy), Low Sodium Diet (2gm Na) Discharge Diet Recommended Diet: AHA Diet (Heart Healthy), Low Sodium Diet (2gm Na) Pending Studies Studies pending at discharge: no Laboratory Results Hemoglobin A1c Test 09/21/17 05:36 Range/Units Estimated Average Glucose 134 mg/dl Hemoglobin A1c 6.3 H 4.5-5.6 % Lipid Panel Test 09/22/17 05:32 Range/Units Triglycerides Level 84 0-150 mg/dl Cholesterol Level 183 0-200 mg/dl HDL Cholesterol 52 mg/dl Cholesterol/HDL Ratio 3.5 LDL Cholesterol, Calculated 114 mg/dl Medical Emergencies . Who to Call and When: Medical Emergencies: If at any time you feel your situation is an emergency, please call 911 immediately. . Non-Emergent Contact Non-Emergency issues call your: Primary Care Provider . Past History Medical & Surgical History: (1) CAD (coronary artery disease) (2) Depression (3) CVA (cerebral vascular accident) (4) Atrial fibrillation (5) CKD (chronic kidney disease), stage III (6) Chronic diastolic CHF (congestive heart failure) (7) Prostate cancer (8) Pleural effusion, right (9) PUD (peptic ulcer disease) (10) History of cataract surgery (11) S/P cholecystectomy (12) S/P AAA repair (13) Hx of CABG (14) S/P TAVR (transcatheter aortic valve replacement) . "Provider Documentation" section prepared by Deangelo Stafford. . Core Measure Problem Core Measures: Stroke Stroke Core Measures Reason no t-PA for Stroke: Treatment not indicated Reason no antithrom by day 2: Treatment provided - N/A (Aspirin 162mg/day) Reason no antithrom at D/C: Treatment provided - N/A Reason no statin at D/C: Refusal of tx by patient Reason no anticoag w/a fib: Treatment not indicated
[2017-09-24 14:26] VITALS: BP 134/79; PULSE 75; TEMP 36.3; O2SAT 94
--- NOTE | 2017-09-24 17:20 | Discharge Summary ---
Discharge Summary Date of Service Sep 24, 2017. Discharge Summary Admission Date: Sep 19, 2017 at 12:42 Discharge Date: Sep 24, 2017 Discharge Disposition: group home facility Principal Diagnosis: stroke Secondary Diagnoses/Problems: Please see H&P and Hospital progress note Consultations: Neurology and Cardiology Medication Reconciliation Continued Medications: Aspirin (Aspirin Ec) 81 Mg Tab 162 MG PO QAM Cyanocobalamin (Vitamin B-12) 1,000 Mcg Tab 1000 MCG PO DAILY, TAB Docusate Sodium (Colace) 100 Mg Cap 1 CAP PO DAILY Fish Oil ([place]-3) 1 Ea Cap 2 CAP PO DAILY, CAP Furosemide (Lasix) 40 Mg Tab 80 MG PO DAILY, TAB Metformin Hcl (Glucophage) 500 Mg Tab 500 MG PO DAILY, TAB Metoprolol Succinate (Metoprolol Succinate ER) 50 Mg Tabcr 50 MG PO Q2D ALTERNATING EVERY OTHER DAY WITH TOPROL XL 100MG Metoprolol Succinate (Metoprolol Succinate ER) 100 Mg Tabcr 100 MG PO Q2D TO ALTERNATE EVERY OTHER DAY WITH 50MG TOPROL XL Multiple Vitamins W/ Minerals (Multi Vitamin/Minerals Fu) 1 Tab Tab 1 TAB PO QAM Mupirocin 2% (Bactroban 2%) 30 Gm Cr 1 APPLN EXT TID, TUBE Nitroglycerin (Nitrostat) 0.4 Mg Tab [address] ONE TAB UNDER TONGUE IF NEEDED EVERY 5 MIN FOR CHEST PAIN FOR 3 DOSES Omeprazole (Prilosec) 40 Mg Cap 40 MG PO DAILY, CAP Discontinued Medications: Diltiazem Hcl Coated Beads (Cartia Xt) 120 Mg Cap 1 CAP PO DAILY Enalapril (Vasotec) 5 Mg Tab 2.5 MG PO DAILY, TAB Admission Information HPI (per Admitting provider): 86-year-old male who presents to the ED with frequent falls and generalized weakness. Patient is accompanied by his son who is the bedside and provides some information. Son reports that he recently moved in with his father into a mobile home. About 3 weeks ago, the son reports he came home from work and found his father on the floor face down. He was able to arouse him. He reports that since that time patient has had generalized weakness and difficulty getting around. He is found him on the floor a few times additionally since then. Patient is currently without complaint. He reports he has been feeling well recently. He denies chest pain shortness of breath. No orthopnea or worsening leg edema. He denies abdominal pain, nausea, vomiting , or diarrhea. Son feels as though the patient has lost some weight recently. However he is unsure of exactly how much. Patient denies lightheadedness, dizziness, diaphoresis, or syncopal events. He denies fever and chills. He has chronic urinary frequency which is unchanged from baseline. In the ED, patient's workup was unremarkable. Past Medical/Surgical History Medical Problems: (1) Atrial fibrillation Status: Chronic (2) CAD (coronary artery disease) Permanent Comment: - CABG 01/2008 - NSTEMI 07/14/15-cardiac catheterization: diffuse [place] vessel disease, BANEGAS to LAD graft patent, saphenous vein graft to circumflex total chronic occlusion, LAD and obtuse marginal stents had noncritical stent restenosis-medical management advised Status: Chronic (3) Chronic diastolic CHF (congestive heart failure) Status: Chronic (4) CKD (chronic kidney disease), stage III Status: Chronic (5) CVA (cerebral vascular accident) Status: Chronic (6) Depression Status: Chronic (7) Diabetes mellitus, type II Status: Chronic (8) Dyslipidemia Status: Chronic (9) Pleural effusion, right Status: Chronic (10) Prostate cancer Status: Chronic (11) PUD (peptic ulcer disease) Permanent Comment: EGD 06/2017- Normal esophagus, Gastritis, Normal examined duodenum. Status: Chronic Surgical Problems: (1) History of cataract surgery Status: Chronic (2) Hx of CABG Permanent Comment: Status: Chronic (3) S/P AAA repair Status: Chronic (4) S/P cholecystectomy Status: Chronic (5) S/P TAVR (transcatheter aortic valve replacement) Status: Chronic Family History Noncontributory secondary to patient's advanced age Social History Smoking Status: Former Smoker Alcohol Use: none Housing status: lives with family Immunizations History of Influenza Vaccine: Yes Influenza Vaccine Date: Mar 26, 2017 History of Tetanus Vaccine?: Yes Tetanus Immunization Date: Jan 25, 2014 History of Pneumococcal: Yes Pneumococcal Date: Apr 24, 2016 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, BINDING DYER, 09/30/16) Rosuvastatin (Verified Allergy, Unknown, Myalgias., 09/30/16) Venlafaxine (Verified Allergy, Unknown, Unknown, 09/30/16) Lorazepam (Verified Adverse Reaction, Unknown, Fatigue, 09/30/16) Home Medications Scheduled Aspirin (Aspirin Ec), 81 MG PO QAM Cyanocobalamin (Vitamin B-12), 1,000 MCG PO DAILY Diltiazem Hcl Coated Beads (Cartia Xt), 1 CAP PO DAILY Docusate Sodium (Colace), 1 CAP PO DAILY Enalapril (Vasotec), 2.5 MG PO DAILY Fish Oil (Pomona-3), 2 CAP PO DAILY Furosemide (Lasix), 80 MG PO DAILY Metformin Hcl (Glucophage), 500 MG PO DAILY Metoprolol Succinate (Metoprolol Succinate ER), 50 MG PO Q2D Metoprolol Succinate (Metoprolol Succinate ER), 100 MG PO Q2D Multiple Vitamins W/ Minerals (Multi Vitamin/Minerals Fu), 1 TAB PO QAM Mupirocin 2% (Bactroban 2%), 1 APPLN EXT TID Nitroglycerin (Nitrostat), 1 TAB SL UD Omeprazole (Prilosec), 40 MG PO DAILY Review of Systems ROS per HPI, all other systems reviewed and negative Physical Exam Vital Signs Date Time Temp Pulse Resp B/P (MAP) Pulse Ox O2 Delivery O2 Flow Rate FiO2 09/19/17 13:43 36.5 90 18 129/84 (99) 93 Room Air 09/19/17 12:55 92 Room Air 09/19/17 12:42 85 16 116/82 92 Room Air 09/19/17 11:12 96 Room Air 09/19/17 11:10 85 09/19/17 11:06 96 18 112/81 96 Room Air 09/19/17 10:22 36.6 94 20 113/65 94 Room Air General Appearance: WD/WN, no apparent distress Head: normocephalic, atraumatic Eyes: normal inspection, EOMI, sclerae normal ENT: + pertinent finding ([place], mucous membranes dry) Neck: supple, no JVD, trachea midline Respiratory/Chest: lungs clear, normal breath sounds, no respiratory distress Cardiovascular: no edema, normal peripheral pulses, + irregularly irregular ( Rate controlled) Abdomen/GI: normal bowel sounds, non tender, soft, no organomegaly Extremities/Musculoskelatal: normal inspection, no calf tenderness, normal capillary refill Neurologic/Psych: no motor/sensory deficits, alert, normal mood/affect, oriented x 3, + pertinent finding (Poor insight, forgetful) Skin: normal color, warm/dry Diagnostics Laboratory Results Results Past 24 Hours Test 09/19/17 10:20 09/19/17 10:25 Range/Units White Blood Count 6.73 4.8-10.8 K/uL Red Blood Count 4.80 4.7-6.1 M/uL Hemoglobin 13.9 14.0-18.0 g/dL Hematocrit 39.9 42-52 % Mean Corpuscular Volume 83.1 80-100 fL Mean Corpuscular Hemoglobin 29.0 25-34 pg Mean Corpuscular Hemoglobin Concent 34.8 32-36 g/dl Platelet Count 103 130-400 K/uL Mean Platelet Volume 8.8 7.4-10.4 fL Neutrophils (%) (Auto) 79.5 % Lymphocytes (%) (Auto) 10.0 % Monocytes (%) (Auto) 8.2 % Eosinophils (%) (Auto) 1.6 % Basophils (%) (Auto) 0.4 % Neutrophils # (Auto) 5.35 1.4-6.5 K/uL Lymphocytes # (Auto) 0.67 1.2-3.4 K/uL Monocytes # (Auto) 0.55 0.11-0.59 K/uL Eosinophils # (Auto) 0.11 0-0.5 K/uL Basophils # (Auto) 0.03 0-0.2 K/uL RDW Standard Deviation 47.8 36.4-46.3 fL RDW Coefficient of Variation 15.9 11.5-14.5 % Immature Granulocyte % (Auto) 0.3 % Immature Granulocyte # (Auto) 0.02 0.00-0.02 K/uL Prothrombin Time 11.3 9.0-12.0 SECONDS Prothromb Time International Ratio 1.1 0.9-1.1 Activated Partial Thromboplast Time 25.7 21.0-31.0 SECONDS Partial Thromboplastin Ratio 1.0 Sodium Level 137 136-145 mmol/L Potassium Level 3.6 3.5-5.1 mmol/L Chloride Level 101 98-107 mmol/L Carbon Dioxide Level 27 21-32 mmol/L Anion Gap 8.0 3-11 mmol/L Blood Urea Nitrogen 25 7-18 mg/dl Creatinine 1.75 0.60-1.40 mg/dl Est Creatinine Clear Calc Drug Dose 30.7 ml/min Estimated GFR () 40.0 Estimated GFR (Non- 34.5 BUN/Creatinine Ratio 14.3 10-20 Random Glucose 120 70-99 mg/dl Calcium Level 9.0 8.5-10.1 mg/dl Magnesium Level 2.0 1.8-2.4 mg/dl Total Creatine Kinase 728 39-308 U/L Creatine Kinase MB 14.9 0.5-3.6 ng/ml Creatine Kinase MB Ratio 2.0 0-3.0 Troponin I 0.025 0-0.045 ng/ml Diagnostic Radiology HEAD CT IMPRESSION: 1. No acute intracranial findings. 2. No calvarial fracture. 3. 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 CXR IMPRESSION: 1. No acute cardiopulmonary abnormality. 2. Cardiomegaly without radiographic evidence of congestive failure. 3. Again seen is a right pleural effusion with right basilar consolidation. This was also seen on the 07/22/2017 CT scan. Impression Assessment and Plan FREQUENT FALLS GENERALIZED WEAKNESS -Admit to telemetry -Patient presenting with frequent falls and generalized weakness, son reports patient had a fall approximately 3 weeks ago where he was found on the floor face down, son reports increased falls and generalized weakness since that time -History of CVA, no gross focal deficits noted on exam -Monitor in telemetry for arrhythmias -Check U/A -Neuro consult for further recommendations ATRIAL FIBRILLATION -Rate controlled on metoprolol, will continue -Not anticoagulated secondary to fall risk CORONARY ARTERY DISEASE -Appears stable, no reports of chest pain -Continue aspirin and beta-iris; patient has declined statin therapy in the past CHRONIC DIASTOLIC CHF -Appears euvolemic, will continue home dose of Lasix RIGHT-SIDED PLEURAL EFFUSION -Falls Of Rough to be due to congestive heart failure -S/P thoracentesis 01/2017 and 03/2017 -Following with pulmonary medicine and Lucy -Effusion is present on chest x-ray today however patient is currently asymptomatic, saturating well on room air PROSTATE CANCER -Follows with Dr. Lei -Recently received Lupron injection HISTORY OF TAVR HISTORY OF AAA REPAIR PUD -Continue PPI DVT PROPHYLAXIS -SQ heparin CODE STATUS -Patient is a DNR as per my discussion with him. DISPOSITION -In my clinical judgment this beneficiary meets acute admission criteria, established by [facility], that includes being hospitalized through two midnights. -PT/OT, case management consults; patient likely will need higher level of care at discharge, he is interested in a care home located in [place] ADDENDUM: I have seen and examined the patient above and agree with the assessment and plan as stated. Mr. Mcknight is alert and appropriate and although he denies a fall just [employer]ICE, he does report some weakness. He told me he feels that he is headed to a better place soon. Pt appears generally weak on exam. We discussed the plan for therapy to evaluate him and make recommendations. All questions were answered. Will await PT/OT recs in am. Andre, DO Advanced Directives Existing Living Will: Yes Existing Power of Typing Section Chief: Yes Resuscitation Status VTE Prophylaxis Will order VTE Prophylaxis: Yes Physical Exam (per Admitting): General Appearance: WD/WN, no apparent distress Head: normocephalic, atraumatic Eyes: normal inspection, EOMI, sclerae normal ENT: + pertinent finding ([place], mucous membranes dry) Neck: supple, no JVD, trachea midline Respiratory/Chest: lungs clear, normal breath sounds, no respiratory distress Cardiovascular: no edema, normal peripheral pulses, + irregularly irregular (Rate controlled) Abdomen/GI: normal bowel sounds, non tender, soft, no organomegaly Extremities/Musculoskelatal: normal inspection, no calf tenderness, normal capillary refill Neurologic/Psych: no motor/sensory deficits, alert, normal mood/affect, oriented x 3, + pertinent finding (Poor insight, forgetful) Skin: normal color, warm/dry Hospital Course STROKE-Acute infarct within the right frontal lobe Presented with falls and generalized weakness. 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 Carotid duplex demonstrated plaque in bilateral internal carotid artery. Known chronic atrial fibrillation. Falls Of Rough to be very high risk for anticoagulation due to past and recent falls as well as problems with compliance with anticoagulants in the past. Appreciate Neurology input and recommendation. Continue aspirin and the dose is increased to 162 mg Remains stable to be discharged to [facility] WEAKNESS / FALLS May or may not be related to cardiac arrhythmias or stroke. Continue cardiac monitoring. Fall precaution Will need placement ATRIAL FIBRILLATION-rate is controlled Rate currently controlled, but has had episodes of bradycardia with 2-3 second pauses. Continue cardiac monitoring. Titrate beta-iris. Not anticoagulated due to fall risk and past concerns about compliance / safety. Appreciate Cardiology input CORONARY ARTERY DISEASE History of ischemic heart disease, status post CABG. Denies chest pain. Serum troponin negative. Continue aspirin, metoprolol. CHF History of chronic left ventricular diastolic heart failure. Appears to be compensated. Continue furosemide. HISTORY SEVERE AORTIC STENOSIS S/P TAVR RIGHT PLEURAL EFFUSION Chronic/stable. CKD III Serum creatinine today = 1.64. Follow. DM TYPE 2 Managed at home with metformin. Check hemoglobin A1c. Hold metformin during hospital stay. Lantus/NovoLog per protocol. Fasting blood sugar this morning = 86. VTE PROPHYLAXIS SQ heparin. Ambulate. DISPOSITION To be determined. Anticipated need for skilled care or rehab-awaiting placement. Internal Medicine follow-up with Dr. Newsome. Cardiology follow-up with Dr. Campos. Neurology follow-up with Dr. Jimenez or Angelia Peralta PA-C . Total time spent on discharge = 35 minutes This includes examination of the patient, discharge planning, medication reconciliation, and communication with other providers. Discharge Instructions Date of Service Sep 24, 2017. Admission Reason for Admission: Falls,Weakness Discharge Discharge Diagnosis / Problem: stroke Discharge Goals Goal(s): Prevent Disease Progression Activity Recommendations Activity Level: Assistance Required Therapies: Physical Therapy, Occupational Therapy, Speech Therapy . Additional Information Patient informed of condition: Yes Advance Directives: No DNR: Yes Level of Care: Skilled Communicable Disease: No Prognosis: Stable Oxygen at (LPM): 2 liter/min via NC as needed Hernandez Catheter: No Instructions / Follow-Up Instructions / Follow-Up Please make an appointment with your PCP in 1 week and Neurologist in 2 to 3 weeks following discharge from [facility] Diet Patient's current hospital diet: AHA Diet (Heart Healthy), Low Sodium Diet (2gm Na) Discharge Diet Recommended Diet: AHA Diet (Heart Healthy), Low Sodium Diet (2gm Na) Pending Studies Studies pending at discharge: no Laboratory Results Hemoglobin A1c Test 09/21/17 05:36 Range/Units Estimated Average Glucose 134 mg/dl Hemoglobin A1c 6.3 H 4.5-5.6 % Lipid Panel Test 09/22/17 05:32 Range/Units Triglycerides Level 84 0-150 mg/dl Cholesterol Level 183 0-200 mg/dl HDL Cholesterol 52 mg/dl Cholesterol/HDL Ratio 3.5 LDL Cholesterol, Calculated 114 mg/dl Medical Emergencies . Who to Call and When: Medical Emergencies: If at any time you feel your situation is an emergency, please call 911 immediately. . Non-Emergent Contact Non-Emergency issues call your: Primary Care Provider . Past History Medical & Surgical History: (1) CAD (coronary artery disease) (2) Depression (3) CVA (cerebral vascular accident) (4) Atrial fibrillation (5) CKD (chronic kidney disease), stage III (6) Chronic diastolic CHF (congestive heart failure) (7) Prostate cancer (8) Pleural effusion, right (9) PUD (peptic ulcer disease) (10) History of cataract surgery (11) S/P cholecystectomy (12) S/P AAA repair (13) Hx of CABG (14) S/P TAVR (transcatheter aortic valve replacement) . "Provider Documentation" section prepared by Deangelo Stafford. . Core Measure Problem Core Measures: Stroke Stroke Core Measures Reason no t-PA for Stroke: Treatment not indicated Reason no antithrom by day 2: Treatment provided - N/A (Aspirin 162mg/day) Reason no antithrom at D/C: Treatment provided - N/A Reason no statin at D/C: Refusal of tx by patient Reason no anticoag w/a fib: Treatment not indicated <Electronically signed by Deangelo Stafford M.D.> Additional Copies To John Newsome MD
--- NOTE | 2017-09-25 12:03 | EDITING REQUIRED CODING QUERY ---
CODING QUERY To promote full compliance with coding requirements relating to patient care, provider participation is requested in all cases of print line operator uncertainty. 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 Please clarify below, in your clinical opinion, regarding the Leukoencephalopathy. 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, progressive ( ) Metachromatic ( ) Multifocal (progressive) ( ) reversible, posterior ( ) Van Bogaert's (sclerosing) ( + ) Other: Specify stroke as documented ( ) This is not a significant diagnosis Please send this to neurology for further documentation Physician's Response(s): Thank you Marilee Mcrae Principal Diagnosis: "_that condition established after study, to be chiefly responsible for occasioning the admission of the patient to the hospital for care." Co-Existing Principal Diagnosis: "_when two or more diagnoses equally meet the criteria for principal diagnosis as determined by the circumstances of admission, diagnostic work up, and/or therapy provided, and the Alphabetic Index, Tabular List, or another coding guideline does not provide sequencing direction, any one of the diagnoses may be sequenced first." "When the physician has documented what appears to be a current diagnosis in the body of the record, but has not included the diagnosis in the final diagnostic statement, the physician should be asked whether the diagnosis should be added." (Source Coding [facility] 2 QTR90. p3-4)
== END 2017-09-24 14:45 | DRG 65 ==
LOC: EDBD 10:12 → C.EDB 10:13 → C.2T 12:42 → ENRESERV 12:56 → C.MS2W 09-23 15:48
PROVIDERS: ADMIT Hospitalist; ATTEND Internal Medicine
DX: I63.8 Other cerebral infarction (principal); I50.32 Chronic diastolic (congestive) heart failure; R29.700 NIHSS score 0; E11.42 Type 2 diabetes mellitus with diabetic polyneuropathy; I48.2 Chronic atrial fibrillation; I65.23 Occlusion and stenosis of bilateral carotid arteries; I25.10 Atherosclerotic heart disease of native coronary artery without angina pectoris; E11.22 Type 2 diabetes mellitus with diabetic chronic kidney disease; N18.3 Chronic kidney disease, stage 3 (moderate); E78.5 Hyperlipidemia, unspecified; I25.2 Old myocardial infarction; C61 Malignant neoplasm of prostate; Z51.81 Encounter for therapeutic drug level monitoring; Z79.899 Other long term (current) drug therapy; Z79.84 Long term (current) use of oral hypoglycemic drugs; Z79.82 Long term (current) use of aspirin; Z86.73 Personal history of transient ischemic attack (TIA), and cerebral infarction without residual deficits; Z91.81 History of falling; Z66 Do not resuscitate; Z87.11 Personal history of peptic ulcer disease; Z95.1 Presence of aortocoronary bypass graft; Z95.2 Presence of prosthetic heart valve; Z87.891 Personal history of nicotine dependence; Z88.8 Allergy status to other drugs, medicaments and biological substances

== ENCOUNTER → 2017-10-22 | Outpatient (CLI) | payer OTHER, BC ==
[~2017-10-22] MED LIST changes: +BCTCR/30 EXT; -CYAN100020 PO; +CYAN10005 PO; +GLC/500 PO; -NITR0.4S UT; +NTRGSL/4 SL; +OMEG10007 PO; +OMEP40CA41 PO
[2017-10-22 09:26] LABS: HEMATOCRIT 38.6 % (42-52); MEAN CORPUSCULAR HGB CONC 33.7 g/dl (32-36); MEAN PLATELET VOLUME 8.8 fL (7.4-10.4); PLATELET COUNT 125 K/uL (130-400); RED CELL DISTRIBUTION WIDTH CV 16.1 % (11.5-14.5); RED CELL DISTRIBUTION WIDTH SD 50.6 fL (36.4-46.3); WHITE BLOOD COUNT 6.25 K/uL (4.8-10.8)
[2017-10-22 09:27] LABS: BLOOD UREA NITROGEN 30 mg/dl (7-18); CALCIUM 8.2 mg/dl (8.5-10.1); CARBON DIOXIDE 34 mmol/L (21-32); CREATININE 1.65 mg/dl (0.60-1.40); GLUCOSE 66 mg/dl (70-99); POTASSIUM 3.4 mmol/L (3.5-5.1); SODIUM 141 mmol/L (136-145)
== END | disposition home or self-care (01) ==
LOC: C.LABSPEC 08:51
PROVIDERS: ATTEND Internal Medicine
DX: N18.9 Chronic kidney disease, unspecified (principal)

== ENCOUNTER 2018-12-31 02:24 | Observation (INO) ==
[2018-12-31 03:06] LABS: Basophils # (auto) 0.03 K/uL (0-0.2); Basophils % (auto) 0.4 %; Eosinophils # (auto) 0.25 K/uL (0-0.5); Eosinophils % (auto) 3.7 %; Hematocrit (blood only) 36.5 % (42-52); Hemoglobin 12.5 g/dL (14.0-18.0); Immature Granulocytes # (auto) 0.01 K/uL (0.00-0.02); Immature Granulocytes % (auto) 0.1 %; Lymphocytes # (auto) 1.14 K/uL (1.2-3.4); Lymphocytes % (auto) 16.8 %; Mean Corpuscular Hgb Conc 34.2 g/dL (32-36); Mean Corpuscular Volume 88.6 fL (80-100); Mean Platelet Volume 9.1 fL (7.4-10.4); Monocytes % (auto) 10.3 %; Neutrophils # (auto) 4.65 K/uL (1.4-6.5); Neutrophils % (auto) 68.7 %; Platelet Count 148 K/uL (130-400); RDW Coefficient of Variation 15.3 % (11.5-14.5); RDW Standard Deviation 49.7 fL (36.4-46.3); Red Blood Count 4.12 M/uL (4.7-6.1); White Blood Count 6.78 K/uL (4.8-10.8)
[2018-12-31 03:13] LABS: Alanine Aminotransferase 15 U/L (12-78); Albumin Level 3.4 gm/dl (3.4-5.0); Aspartate Aminotransferase 20 U/L (15-37); BUN Creatinine Ratio 16.5 (10-20); Blood Urea Nitrogen 34 mg/dl (7-18); Calcium 8.8 mg/dl (8.5-10.1); Carbon Dioxide 28 mmol/L (21-32); Chloride 107 mmol/L (98-107); Creatinine Clr Calc Pharmacy 25.2 ml/min; Est GFR (African American) 32.4; Est GFR (Non-African American) 27.9; Glucose 60 mg/dl (70-99); Potassium 4.5 mmol/L (3.5-5.1); Sodium 141 mmol/L (136-145)
[2018-12-31 03:15] LABS: INR 1.1 (0.9-1.1); Partial Thromboplastin Ratio 0.9; Partial Thromboplastin Time 25.4 Seconds (21.0-31.0)
[2018-12-31 03:18] LABS: Albumin Globulin Ratio 0.9 (0.9-2); Alkaline Phosphatase 111 U/L (45-117); Bilirubin,Total 0.6 mg/dl (0.2-1); NT Pro B Type Natriuretic Pept 5227 pg/ml (0-1800); Total Protein 7.4 gm/dl (6.4-8.2); Troponin I < 0.015 ng/ml (0-0.045)
--- NOTE | 2018-12-31 05:11 | Emergency Department Note ---
Entered by Tawanna Patel acting as a scribe for Le Martinez DO History of Present Illness General Chief complaint: Shortness of Breath/Dyspnea Stated complaint: SHORT OF BREATH Time Seen by Provider: 12/31/18 02:39 Source: patient and other (Nurse) Mode of arrival: EMS Limitations: other (Cognitive status) History of Present Illness Onset (ago): day(s) 2 Location: left (lung) and right (lung) Pain Consistency: + other (Worsening) Maximum Pain Intensity: 0 Quality: + other (Shortness of breath) Relieved By: + other (Nebulizer treatment) Associated symptoms: + chest pain and + shortness of breath; no other (Abdominal pain) Treatments prior to arrival: other (Nebulizer treatment) The patient is a 88 year old male presenting to the Emergency Department via EMS complaining of worsening shortness of breath starting 2 days ago. The patient reports that he is short of breath. He states that he could tell that he was becoming short of breath over the past 2 days. He notes that he had chest pain. He adds that he received a nebulizer treatment STEAMING CABINET TENDER that improved his shortness of breath. He denies abdominal pain. The patients nurse reports that the patient is a resident at [facility]. She states that [facility] staff reported that the patient suddenly became short of breath and complained of chest pain. She notes that EMS gave the patient a nebulizer treatment STEAMING CABINET TENDER. The HPI and ROS are limited due to cognitive status. Home Medications Home Medications Medication Instructions Recorded Confirmed Type acetaminophen 325 mg tablet 650 mg PO Q4 PRN tab 12/24/18 12/31/18 History cyanocobalamin (vit B-12) 1,000 1,000 mcg PO QDB tab 12/24/18 12/31/18 History mcg tablet docusate sodium 100 mg tablet 100 mg PO BID tab 12/24/18 12/31/18 History metformin 500 mg tablet 500 mg PO QDB tab 12/24/18 12/31/18 History metoprolol succinate ER 100 mg 100 mg PO Q OTHER DAY tab 12/24/18 12/31/18 History tablet,extended release 24 hr metoprolol succinate ER 50 mg 50 mg PO Q OTHER DAY tab 12/24/18 12/31/18 History tablet,extended release 24 hr nitroglycerin 0.4 mg sublingual 0.4 mg SL DIRECTED PRN #100 tab 12/24/18 12/31/18 History tablet omeprazole 40 mg capsule,delayed 40 mg PO BID cap 12/24/18 12/31/18 History release aspirin [Aspir-81] 81 mg PO QDB 12/31/18 12/31/18 History food supplemt, lactose-reduced 1 ea PO DAILY PRN 12/31/18 12/31/18 History [Ensure] furosemide [Lasix] 20 mg PO QAM 12/31/18 12/31/18 History insulin glargine [Lantus U-100 10 unit SUBCUT DAILY 12/31/18 12/31/18 History Insulin] lidocaine 1 applic TOPICAL DIRECTED PRN 12/31/18 12/31/18 History mirabegron [Myrbetriq] 50 mg PO DAILY 12/31/18 12/31/18 History multivitamin,mh-oyod-ztghzxbn 1 tab PO DAILY 12/31/18 12/31/18 History [Therems-M] ondansetron HCl [Zofran] 4 mg PO Q4 PRN 12/31/18 12/31/18 History potassium chloride 10 meq PO BID 12/31/18 12/31/18 History Allergies Allergy/AdvReac Type Severity Reaction Status Date / Time atorvastatin Allergy Severe CVA Verified 12/31/18 02:51 SYMPTOMS paroxetine Allergy 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 Verified 12/31/18 02:51 donepezil Allergy Unknown Unknown Verified 12/31/18 02:51 venlafaxine Allergy Unknown Unknown Verified 12/31/18 02:51 lorazepam AdvReac Intermediate Fatigue Verified 12/31/18 02:51 Past Med/Surg History Medical History CAD (coronary artery disease) (Chronic) "1980s - CABG 01/2008 - NSTEMI 07/14/15-cardiac catheterization: diffuse [place] vessel disease, BANEGAS to LAD graft patent, saphenous vein graft to circumflex total chronic occlusion, LAD and obtuse marginal stents had noncritical stent restenosis-medical management advised" Depression (Chronic) Dyslipidemia (Chronic) CVA (cerebral vascular accident) (Chronic) Atrial fibrillation (Chronic) Diabetes mellitus, type II (Chronic) CKD (chronic kidney disease), stage III (Chronic) Chronic diastolic CHF (congestive heart failure) (Chronic) Prostate cancer (Chronic) Pleural effusion, right (Chronic) PUD (peptic ulcer disease) (Chronic) "EGD 06/2017- Normal esophagus, Gastritis, Normal examined duodenum. " Surgical History History of cataract surgery (Chronic) S/P cholecystectomy (Chronic) S/P AAA repair (Chronic) S/P TAVR (transcatheter aortic valve replacement) (Chronic) Hx of CABG (Chronic) "" Family History Mother Cardiac arrhythmia Diabetes Hyperlipidemia Grandfather Cancer Father Diabetes Hyperlipidemia Myocardial infarction Stroke Brother Hyperlipidemia Grandmother Stroke Other Lung disease Social History marital status: / Current Living Situation Comment: Assisted Living current occupational status: retired Feels Safe at Home: Yes Smoking Status: Former smoker Review of Systems The HPI and ROS are limited due to cognitive status. Physical Exam Vital Signs Vital Signs - 24 hr 12/31/18 02:38 12/31/18 04:24 12/31/18 04:26 Temperature 36.6 C Temperature Source Oral Sepsis Recent Fever Within 48 Hours No Sepsis New/Unexplained Change in Mental Status No Sepsis Action Taken by Nursing No Action Required Pulse Rate 85 84 69 Pulse Rate from SpO2 Sensor 71 66 Pulse Rhythm Irregular Pulse Strength Normal Respiratory Rate 26 H 21 27 H Respiratory Effort / Characteristics Spontaneous Labored Respiratory Depth Deep Respiratory Pattern Regular Blood Pressure 121/81 105/65 99/61 L Blood Pressure Mean 94 78 73 Blood Pressure Position Sitting Pulse Oximetry 96 95 96 Oxygen Delivery Method Room Air HEENT: Head - normocephalic and atraumatic Pupils are equal, round, and reactive to light. Extraocular eye muscles are intact, and sclera are anicteric. Nose - moist nasal mucosa without discharge. Mouth - moist buccal mucosa. Oropharynx is nonerythematous and there is no tonsillar exudate or edema noted. Neck: Supple; no JVD Heart: Regular rate and irregularly irregular rhythm. There is a normal S1 and S2 with no murmurs, clicks, or gallops appreciated. Lungs: Clear to auscultation bilaterally with diminished breath sounds and slight rhonchi at the left lung base Abdomen: Soft, completely nontender, nondistended, with good bowel sounds. There are no palpable pulsatile masses or hepatosplenomegaly. There is no guarding, rigidity, or rebound noted. Extremities: No evidence of cyanosis, clubbing, or edema. There are easily palpable peripheral pulses. Skin: warm and dry with good turgor and no rashes. Course 0250: The patient was evaluated in room A3, and a complete history and physical examination were performed. A twelve-lead EKG was obtained in previous electro gi medical records were reviewed. I discussed the situation with the patient's son who was at the bedside. Labs were drawn as above. He was observed on the teletypesetter monitor and pulse oximeter. 0401: I reevaluated the patient at this time. He is sleeping. Vital signs are stable. 0422: I discussed the patients case with Dr. Cori Mata [facility]. He will evaluate the patient for further management. Consultations Consultation #1: I discussed the patients case with Dr. Cori Mata [facility]. He will evaluate the patient for further management. Time: 04:22 Medical Decision Making Differential Diagnosis Differential diagnosis includes pneumonia, CHF and PE amongst others. Medical Records Attestation: I reviewed the patient's medical records. Home Medications Current Medication List: was personally reviewed by me Laboratory Data Attestation: I reviewed the patient's lab results. Result diagrams: 12/31/18 02:12 12/31/18 02:12 Lab Results 12/31/18 12/31/18 12/31/18 Range/Units 02:12 02:12 02:12 WBC 6.78 (4.8-10.8) K/uL RBC 4.12 L (4.7-6.1) M/uL Hgb 12.5 L (14.0-18.0) g/dL Hct 36.5 L (42-52) % MCV 88.6 (80-100) fL MCH 30.3 (25-34) pg MCHC 34.2 (32-36) g/dL RDW Std Deviation 49.7 H (36.4-46.3) fL RDW Coeff of Mick 15.3 H (11.5-14.5) % Plt Count 148 (130-400) K/uL MPV 9.1 (7.4-10.4) fL Immature Gran % (Auto) 0.1 % Neut % (Auto) 68.7 % Lymph % (Auto) 16.8 % [place] % (Auto) 10.3 % Eos % (Auto) 3.7 % Baso % (Auto) 0.4 % Immature Gran # (Auto) 0.01 (0.00-0.02) K/uL Neut # (Auto) 4.65 (1.4-6.5) K/uL Lymph # (Auto) 1.14 L (1.2-3.4) K/uL [place] # (Auto) 0.70 H (0.11-0.59) K/uL Eos # (Auto) 0.25 (0-0.5) K/uL Baso # (Auto) 0.03 (0-0.2) K/uL PT 11.0 (9.0-12.0) Seconds INR 1.1 (0.9-1.1) APTT 25.4 (21.0-31.0) Seconds PTT Ratio 0.9 Sodium 141 (136-145) mmol/L Potassium 4.5 (3.5-5.1) mmol/L Chloride 107 (98-107) mmol/L Carbon Dioxide 28 (21-32) mmol/L Anion Gap 6.0 (3-11) BUN 34 H (7-18) mg/dl Creatinine 2.06 H (0.6-1.4) mg/dl Est Cr Clr Drug Dosing 25.2 ml/min Est GFR ( Amer) 32.4 Est GFR (Non-Af Amer) 27.9 BUN/Creatinine Ratio 16.5 (10-20) Glucose 60 L (70-99) mg/dl Calcium 8.8 (8.5-10.1) mg/dl Total Bilirubin 0.6 (0.2-1) mg/dl AST 20 (15-37) U/L ALT 15 (12-78) U/L Alkaline Phosphatase 111 (45-117) U/L Troponin I < 0.015 (0-0.045) ng/ml NT-Pro-B Natriuret Pep 5227 H (0-1800) pg/ml Total Protein 7.4 (6.4-8.2) gm/dl Albumin 3.4 (3.4-5.0) gm/dl Globulin 4.0 (2.5-4.0) gm/dl Albumin/Globulin Ratio 0.9 (0.9-2) Imaging Data Attestation: I personally reviewed and interpreted this imaging study as lissett real: My Impression: XR Chest 1V portable stat: Cardiomegaly. Large left-sided pleural effusion. Pulmonary vascular congestion, left greater than right. ECG Data Attestation: I personally reviewed and interpreted this ECG as follows: Indication: SOB/dyspnea Rate (beats per minute): 80 Rhythm: atrial fibrillation Findings: no acute ischemic change and no ectopy Blood Pressure Blood Pressure Findings: Normal blood pressure Blood Pressure Disposition: further management by hospitalist MDM Narrative The patient is an 88 year old male who presents to the ED with worsening shortness of breath starting 2 days ago. Differential diagnosis includes pneumonia, CHF and PE amongst others. The patient's vitals were stable on physical exam. He is no longer short of breath here in the emergency department. He states that the nebulizer treatment he received in the ambulance helped quite a bit. He has a large left-sided pleural effusion on chest x-ray. There may be an underlying opacity but is difficult to discern. He is afebrile and has no significant leukocytosis. The patient's son who was at the bedside denies a prolonged course of shortness of breath or increasing symptoms. It seems that his symptoms started fairly suddenly tonight. He has an elevated BNP greater than 5000 along with a pleural effusion concerning for congestive heart failure. The patient did have chest pain associated with shortness of breath prior to EMS arrival. The is chest pain-free here in the emergency department. The patient's creatinine has increased from 1.6-2.0. I discussed the case with the [facility] Hospitalist and they will evaluate for further management. Impression & Plan Substernal chest pain, Pleural effusion, left, Renal insufficiency Discharge Plan Visit Data Chief Complaint: Shortness of Breath/Dyspnea Stated Complaint: SHORT OF BREATH ED Provider: Le Martinez Discharge Problem: Substernal chest pain, Pleural effusion, left, Renal insufficiency Patient Disposition: Being Evaluated by Hospitalist Forms Stand Alone Forms: My [facility] Prescriptions Prescriptions: No Action docusate sodium 100 mg tablet 100 mg PO BID RF: 0 omeprazole 40 mg capsule,delayed release(DR/EC) 40 mg PO BID RF: 0 metoprolol succinate 100 mg tablet extended release 24 hr 100 mg PO Q OTHER DAY RF: 0 metoprolol succinate 50 mg tablet extended release 24 hr 50 mg PO Q OTHER DAY RF: 0 acetaminophen 325 mg tablet 650 mg PO Q4 PRN (Reason: Fever Or Pain) RF: 0 metformin 500 mg tablet 500 mg PO QDB RF: 0 nitroglycerin 0.4 mg tablet, sublingual 0.4 mg SL DIRECTED PRN (Reason: Chest Pain) Qty: 100 RF: 0 cyanocobalamin (vitamin B-12) 1,000 mcg tablet 1,000 mcg PO QDB RF: 0 Lantus U-100 Insulin 100 unit/mL Solution 10 unit SUBCUT DAILY RF: 0 ondansetron HCl [Zofran] 4 mg Tablet 4 mg PO Q4 PRN (Reason: Nausea And Vomiting) RF: 0 potassium chloride 10 mEq Tablet Extended Release 10 meq PO BID RF: 0 aspirin [Aspir-81] 81 mg Tablet,Delayed Release (Dr/Ec) 81 mg PO QDB RF: 0 furosemide [Lasix] 20 mg Tablet 20 mg PO QAM RF: 0 Ensure Liquid 1 ea PO DAILY PRN (Reason: NEEDED) RF: 0 Therems-M 27-0.4 mg Tablet 1 tab PO DAILY RF: 0 lidocaine 4 % Gel 1 applic TOPICAL DIRECTED PRN (Reason: Pain) RF: 0 Myrbetriq 50 mg Tablet Extended Release 24 Hr 50 mg PO DAILY RF: 0 [facility]errals [facility] - The scribe's documentation has been prepared under my direction and personally reviewed by me in its entirety. I confirm that the note above accurately reflects all work, treatment, procedures, and medical decision making performed by me.
--- NOTE | 2018-12-31 06:42 | XRay Report ---
XR chest 1V portable CLINICAL HISTORY: Dyspnea COMPARISON STUDY: February 01, 2018 FINDINGS: The heart is enlarged. There are postsurgical changes of midline sternotomy and aortic valv e replacement. There are bilateral pleural effusions left greater than right. There are left basilar airspace opacities, atelectatic versus infectious/inflammatory. There is mild vascular congestion. Mi nor right basilar opacities, likely represents scar/atelectasis[ IMPRESSION: 1. Cardiomegaly and mild pulmonary vascular congestion 2. Enlarging left pleural effusion with associated left lower lobe atelectasis/consolidation 3. Stable small right pleural effusion with right basilar atelectatic change Electronically signed by: Kevin Ty M.D. 12/31/2018 6:41 AM
[2018-12-31] MEDS ORDERED: ONDANSETRON 4 MG TAB PO PRN (06:52)
[2018-12-31] MEDS ORDERED: ONDANSETRON INJ 2 MG/ML 2 ML VIAL IV PRN (06:52)
[2018-12-31] MEDS ORDERED: LEVALBUTEROL 1.25MG/0.5ML NEB INH PRN (06:52)
[2018-12-31] MEDS ORDERED: XOPENEX/ATROVENT 1.25mg/0.5MG NEB COMBO NEB PRN (06:52)
[2018-12-31] MEDS ORDERED: POLYETHYLENE (MIRALAX) 17 GM PACK PO PRN (06:52)
[2018-12-31] MEDS ORDERED: IPRATROPIUM BROMIDE NEB SOLN 0.02% 2.5 ML VIAL INH PRN (06:52)
[2018-12-31] MEDS ORDERED: NITROGLYCERIN SL 0.4 MG/TAB TAB SL PRN ×2 (06:52)
[2018-12-31] MEDS ORDERED: NON-FORMULARY MEDICATION (Food Supplemt, Lactose-Reduced [Ensure] 1 EA) PO PRN (06:52)
[2018-12-31] MEDS ORDERED: ACETAMINOPHEN 325 MG TAB PO PRN ×2 (06:52)
[2018-12-31] MEDS ORDERED: GLUCAGON FOR INJ 1 MG VIAL IM PRN (07:30)
[2018-12-31] MEDS ORDERED: CARBOHYDRATES FOR HYPOGLYCEMIA PO PRN (07:30)
[2018-12-31] MEDS ORDERED: GLUCOSE 10 TABS/TUBE PO PRN (07:30)
[2018-12-31] MEDS ORDERED: GLUCOSE 40% GEL 15 GM TUBE PO PRN (07:30)
[2018-12-31] MEDS ORDERED: DEXTROSE 50% 50 ML SYRINGE IV PRN (07:30)
[2018-12-31] MEDS ORDERED: PNEUMOCOCCAL ADMINISTRATION CHARGE ONE (08:00)
[2018-12-31] MEDS ORDERED: PNEUMOCOCCAL POLYSACCHARIDES 25 MCG/0.5 ML VIAL/SYR IM ONE (08:00)
--- NOTE | 2018-12-31 08:33 | History and Physical Report ---
DATE OF ADMISSION: 12/31/2018 CHIEF COMPLAINT: Chest pain, shortness of breath. HISTORY OF PRESENT ILLNESS: This is an 88-year-old male, [facility] resident with past medical history significant for history of CVA, history of atrial fibrillation, no longer on anticoagulation secondary to frequent falls, CAD status post CABG in , chronic diastolic CHF, chronic kidney disease stage III, history of depression, diabetes type 2, hyperlipidemia, chronic right pleural effusion, prostate cancer, peptic ulcer disease, presents with chest pain, shortness of breath. The patient suddenly felt severe chest pain and shortness of breath. He felt he could not breathe. When EMS went, his sats were okay and was transferred here. Initially, he was wheezing, with neb treatment, his wheezing improved. Currently, hemodynamically stable. The patient denies any chest pain or shortness of breath at this time. Somewhat hard to hear. He says he ambulates with a walker or cane. He has to be careful because he has frequent falls. Denies any headache, no blurred vision, no difficulty swallowing. Appetite is okay. No cough, no fever, no abdominal pain. Normal bowel and bladder movements. ALLERGIES: ATORVASTATIN, DONEPEZIL, PAROXETINE, ROSUVASTATIN, VENLAFAXINE, LORAZEPAM. PAST MEDICAL HISTORY: As mentioned above. PAST SURGICAL HISTORY: Cataract surgery, CABG, status post abdominal aortic aneurysm repair, status post cholecystectomy, status post TAVR. FAMILY HISTORY: Noncontributory. SOCIAL HISTORY: Former smoker. No alcohol use. Currently living at [facility]. MEDICATIONS: The patient is on Tylenol 650 mg p.o. q. 4 hours p.r.n., aspirin 81 mg p.o. daily, cyanocobalamin 1000 mcg p.o. daily, Colace 100 mg p.o. b.i.d., Ensure daily p.r.n., Lasix 20 mg p.o. daily, Lantus 10 units subcutaneous daily, lidocaine p.r.n., metformin 500 mg p.o. daily, Toprol-XL 100 mg p.o. q. other day, Toprol-XL 50 mg p.o. q. other day, Myrbetriq 50 mg p.o. daily, multivitamins with minerals 1 tablet daily, nitroglycerin 0.4 mg sublingual p.r.n., omeprazole 40 mg p.o. b.i.d., Zofran 4 mg p.o. q. 4 hours p.r.n., potassium chloride 10 mEq p.o. b.i.d. REVIEW OF SYMPTOMS: As per HPI. Rest of review of systems is negative. PHYSICAL EXAMINATION: GENERAL: The patient is old and frail, not in acute distress. VITAL SIGNS: Temperature 36.6, pulse 69, respiratory rate 27, blood pressure 99/61, oxygen 96% room air. HEENT: No pallor, no icterus. Pupils equal, round, reactive to light. NECK: No JVD, no neck masses, no carotid bruits. CARDIOVASCULAR: S1, S2 heard, regular rate and rhythm. No murmurs. RESPIRATORY SYSTEM: Normal AP diameter. No accessory muscle use. Bibasilar crackles present. ABDOMEN: Soft, bowel sounds present. Nontender, nondistended. CENTRAL NERVOUS SYSTEM: Cranial nerves II-XII grossly intact. Nonfocal. EXTREMITIES: No edema, no erythema. LABORATORY DATA: WBC 6.7, hemoglobin 12.5, hematocrit 36.5, platelets 148. PT 11, INR 1.1, APTT 25.4. Sodium 141, potassium 4.5, chloride 107, bicarbonate 28, BUN 34, creatinine 2, serum glucose 60, calcium 8.8, total bilirubin 0.6, AST 20, ALT 15, alkaline phosphatase is 111. Troponin I less than 0.015. BNP 5200. Chest x-ray shows pleural effusion on the left side. EKG: AFib with rate of 80, nonspecific T-wave abnormality, no acute ST changes seen. ASSESSMENT AND PLAN: This is an 88-year-old male who presents with chest pain, shortness of breath. 1. Chest pain, shortness of breath, history of coronary artery disease, currently asymptomatic. EKG and troponin negative. We will observation in tele floor. Serial cardiac enzymes, echocardiogram and cardiology consult. Keep him n.p.o. until seen by cardiology. Further recommendation as per cardiology. 2. Shortness of breath and pleural effusion, history of chronic diastolic congestive heart failure, on Lasix 20 mg p.o. daily, which he will continue for now and follow the chest ultrasound to see if he needs any thoracocentesis. Continue his home dose of Lasix for now. 3. History of coronary artery disease, status post coronary artery bypass graft. Continue his home medication of aspirin, Toprol-XL, not on statin. 4. History of diabetes, on Lantus 10 units subcutaneous daily at home. We will cut back to 6 units as the patient is currently n.p.o. Hold metformin, place him on insulin sliding scale. Follow hemoglobin A1c levels. Follow the blood sugar. 5. History of hypertension. Continue Toprol-XL, diuretics and monitor the blood pressure. 6. Acute renal failure and chronic kidney disease stage III, baseline creatinine 1.6, presents with creatinine of 2. We will follow the repeat labs. 7. Gastroesophageal reflux disease. Continue PPI. 8. History of abdominal aortic aneurysm repair, 9. history of TAVR, 10.Prostate cancer, followed with Dr. Lei. 11. Deep venous thrombosis prophylaxis, subQ heparin and sequential compression devices. 12. Code status: The patient wants to decide for himself when something happens, we will keep him full code for now. 13. Disposition: We will observe in tele floor. PT and OT prior to discharge. Social Service to help with discharge planning. MINH
--- NOTE | 2018-12-31 08:52 | Ultrasound Report ---
US effusion-chest/mediastinum CLINICAL HISTORY: b/l pleural effusion COMPARISON STUDY: Chest 12/31/2018. FINDINGS: Moderate left pleural effusion with approximately 475 cc. This was marked for thoracentesis . Small right pleural effusion with approximately 78 cc. This was not marked for thoracentesis. IMPRESSION: Small right and moderate left pleural effusions. The left pleural effusion was marked fo r thoracentesis. Electronically signed by: Isma Godfrey M.D. 12/31/2018 8:50 AM
[2018-12-31] MEDS ORDERED: INSULIN GLARGINE SOLOSTAR 100 UNITS/ML 3 ML PEN SC SCH (09:00)
[2018-12-31] MEDS ORDERED: METOPROLOL SUCC 50MG EXT REL TAB PO SCH (09:00)
--- NOTE | 2018-12-31 09:20 | Hospitalist Progress Note ---
Date of Service December 31, 2018 Assessment & Plan (1) Substernal chest pain: (2) Pleural effusion, left: Patient presented with sudden onset chest pain and shortness of breath while at home. Saturation was found to be normal on room air as per EMS. Initially in ED she was wheezing and received neb treatment, wheezing improved. Symptoms resolved while in ED itself. Was found to have left pleural effusion. Episodic chest/abdominal pain/shortness of breath Symptoms resolved by the time he arrived to ED. Currently denies any symptoms. Does have baseline co morbidities-CAD, remote CABG, LAD territory stent, transcatheter aortic valve replacement, abdominal aortic aneurysm repair, endovascular repair -D/D considered: Cardiac etiology, however seems less likely. Does have left pleural effusion which is enlarging and associated with left lower lobe atelectasis/consolidation, stable small right pleural effusion with atelectasis, however symptoms were episodic. Etiology of left pleural effusion unclear but no infection suspected. US done- 475 cc of fluid -Received a dose of IV lasix 40 mg per cardiology. (Home dose: Lasix 20 mg daily) -Work up- EKG-no acute ischemic changes, troponin x3- Neg, Echo- EF 60-65%, Mild LVH, S/P TAVR, Mild MR, TR -Cardiology inputs appreciated -Discussed with son at length- Had multiple thoracentesis in past. If patient is clinically stable, would like to avoid invasive procedure if possible. Agree with him. Manage him conservatively for now and monitor closely History of diabetes II WITH HYPOGLYCEMIA Overtreated as HBA1C 5.7 on 12/02/2018 -On Lantus 10 units subcutaneous daily, Metformin 500 mg daily at home --> Hold as hypoglycemic and HBA1C 5.7 only -Hold Metformin -HBA1C - 12/02/2018 - 5.7 -At 88 years, goal should be <7.0 Will discontinue Lantus now and on discharge even Metformin -ISS Acute renal failure and chronic kidney disease stage III, Baseline creatinine 1.6, presents with creatinine of 2.06 -Received a dose of lasix IV 40 mg per cardio today -Monitor trend History of coronary artery disease, status post coronary artery bypass graft, LAD territory stent. -Continue his home medication of aspirin, Toprol-XL, not on statin. History of hypertension. -Continue Toprol-XL, diuretics and monitor the blood pressure. Gastroesophageal reflux disease. -Continue PPI History of abdominal aortic aneurysm repair -US abdominal aorta ordered by cardiology- Aortobiliary stent graft in place and patent. 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 Similar to previous History of TAVR Echo - reviewed as above Prostate cancer Deep venous thrombosis prophylaxis, subQ heparin and sequential compression devices. Dementia on and off confusion Monitor Code status: The patient wants to decide for himself when something happens, we will keep him full code for now. Disposition: Observe PT and OT ordered From [facility] Updated son by bedside Subjective Patient is awake, alert, oriented to self and place, not to time. On and off does get more agitated. Currently calm and comfortable. Denies any complaints Hard of hearing + Physical Exam Physical Exam: GENERAL- Awake, alert, oriented to self, place. LUNGS- Air entry bilaterally equal. No rales, rhonchi, crackles, wheezes heard. HEART- Regular rate and rhythm. No murmurs ABDOMEN- Soft, non tender, non distended, Bowel sounds heard. EXTREMITIES- Good peripheral pulses, no edema NEUROMUSCULAR- AAOX self, place, Grossly no focal deficits Results & Data Vital Signs (Past 12 Hours) Vital Signs Temp Pulse Pulse Resp BP BP Pulse Ox 12/31/18 06:35 36.4 C L 72 16 144/84 H 94 12/31/18 06:23 63 20 120/68 97 12/31/18 05:01 68 20 121/68 98 12/31/18 04:26 69 27 H 99/61 L 96 12/31/18 04:24 84 21 105/65 95 12/31/18 02:38 36.6 C 85 26 H 121/81 96
[2018-12-31] MEDS: HEPARIN SOD 5,000 UNIT/0.5 ML VIAL SQ SCH ×2 (09:50→20:09)
[2018-12-31] MEDS: DOCUSATE SODIUM 100 MG CAP PO SCH ×2 (09:50→20:09)
[2018-12-31] MEDS: FUROSEMIDE 20 MG TAB PO SCH (09:50)
[2018-12-31] MEDS: PANTOprazole 40 MG TAB PO SCH ×2 (09:50→20:12)
[2018-12-31] MEDS: CEROVITE ADV FORMULA TAB PO SCH (09:50)
[2018-12-31] MEDS: CYANOCOBALAMIN 500 MCG TABLET (VITAMIN B-12) PO SCH (09:50)
[2018-12-31] MEDS: ASPIRIN 81 MG ECTAB PO SCH (09:50)
[2018-12-31] MEDS: MIRABEGRON ER 25 MG TAB PO SCH (09:50)
[2018-12-31] MEDS: POTASSIUM CHLORIDE 10 MEQ TABCR PO SCH ×2 (09:50→20:11)
[2018-12-31] MEDS: INSULIN ASPART 100 UNITS/ML 3 ML PEN SC SCH ×4 (09:51→20:17)
--- NOTE | 2018-12-31 11:09 | Cardiology Consultation ---
Date of Consultation December 31, 2018 Assessment & Plan (1) Substernal chest pain: Symptoms described as with chest pressure and abdominal pressure and pain after bending no evidence of myocardial injury by initial EKGs and enzymes and O2 saturations within normal limits despite complaints of dyspnea Pleural effusions is observed Plan continue usual medications. Will give single dose of IV furosemide. Agree with thoracentesis of left pleural effusion if capable. We will review repeat echocardiogram. Given history of prior AAA and symptoms exacerbated by bending ultrasound abdomen will be ordered Will need to follow renal function closely with above interventions . Patient currently without complaint (2) Pleural effusion, left: Tentative thoracentesis pending (3) Renal insufficiency: Will need to follow daily (4) S/P TAVR (transcatheter aortic valve replacement): Echocardiogram pending (5) S/P AAA repair: Abdominal ultrasound ordered History of Present Illness Reason for Consultation: Chest pain shortness of breath Requesting Physician: Dr. Wasserman Attending Physician: Alea Wasserman History of Present Illness Patient is an 88-year-old male with very complex cardiac/medical issues 1. Chronic atrial fibrillation with poor anticoagulation candidate 2. Atherosclerotic coronary disease with remote coronary bypass grafting [facility] last diagnostic cardiac catheterization July 2015, left main free of disease LAD diffusely diseased with 100% proximal occlusion patent BANEGAS graft LAD patent distal LAD stent First diagonal severely diseased 50% circumflex and obtuse marginal stenoses, occluded saphenous vein graft to the obtuse marginal Severe proximal right coronary stenosis 3. Aortic valve disease status post TAVR 08/29/2015 4. Abdominal aortic aneurysm status post open repair wall by endovascular repair most recently December 2016 5. Chronic diastolic heart failure 6. Chronic stage 3- 4 renal insufficiency 7. Chronic right pleural effusion 8. Type 2 diabetes mellitus insulin-dependent Patient presents this admission having developed Sudden onset bandlike pressure across the abdomen and lower chest after bending over yesterday. Symptoms were associated with acute shortness of breath and were treated with bronchodilator and round. Initial cardiac enzymes and EKGs revealed no acute injury or ischemia. Chest x-ray does demonstrate increased left pleural effusion, chronic right pleural effusion. This morning patient's had no further complaints and f eels well. Historical accuracy is somewhat limited given mild underlying dementia. Notes no fevers or chills notes no productive cough notes no bleeding difficulties notes no melena hematochezia dysuria hematuria notes no abdominal tenderness. Has been able to take medications routinely. 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 Verified 12/31/18 02:51 donepezil Allergy Unknown Unknown Verified 12/31/18 02:51 venlafaxine Allergy Unknown Unknown Verified 12/31/18 02:51 lorazepam AdvReac Intermediate Fatigue Verified 12/31/18 02:51 Home Medications Home Medications Medication Instructions Recorded Confirmed Type acetaminophen 325 mg tablet 650 mg PO Q4 PRN tab 12/24/18 12/31/18 History cyanocobalamin (vit B-12) 1,000 1,000 mcg PO QDB tab 12/24/18 12/31/18 History mcg tablet docusate sodium 100 mg tablet 100 mg PO BID tab 12/24/18 12/31/18 History metformin 500 mg tablet 500 mg PO QDB tab 12/24/18 12/31/18 History metoprolol succinate ER 100 mg 100 mg PO Q OTHER DAY tab 12/24/18 12/31/18 History tablet,extended release 24 hr metoprolol succinate ER 50 mg 50 mg PO Q OTHER DAY tab 12/24/18 12/31/18 History tablet,extended release 24 hr nitroglycerin 0.4 mg sublingual 0.4 mg SL DIRECTED PRN #100 tab 12/24/18 12/31/18 History tablet omeprazole 40 mg capsule,delayed 40 mg PO BID cap 12/24/18 12/31/18 History release aspirin [Aspir-81] 81 mg PO QDB 12/31/18 12/31/18 History food supplemt, lactose-reduced 1 ea PO DAILY PRN 12/31/18 12/31/18 History [Ensure] furosemide [Lasix] 20 mg PO QAM 12/31/18 12/31/18 History insulin glargine [Lantus U-100 10 unit SUBCUT DAILY 12/31/18 12/31/18 History Insulin] lidocaine 1 applic TOPICAL DIRECTED PRN 12/31/18 12/31/18 History mirabegron [Myrbetriq] 50 mg PO DAILY 12/31/18 12/31/18 History multivitamin,zr-rxaa-pkbaafrb 1 tab PO DAILY 12/31/18 12/31/18 History [Therems-M] ondansetron HCl [Zofran] 4 mg PO Q4 PRN 12/31/18 12/31/18 History potassium chloride 10 meq PO BID 12/31/18 12/31/18 History Patient History Medical History CAD (coronary artery disease) (Chronic) " - CABG 01/2008 - NSTEMI 07/14/15-cardiac catheterization: diffuse quinault vessel disease, BANEGAS to LAD graft patent, saphenous vein graft to circumflex total chronic occlusion, LAD and obtuse marginal stents had noncritical stent restenosis-medical management advised" Depression (Chronic) Dyslipidemia (Chronic) CVA (cerebral vascular accident) (Chronic) Atrial fibrillation (Chronic) Diabetes mellitus, type II (Chronic) CKD (chronic kidney disease), stage III (Chronic) Chronic diastolic CHF (congestive heart failure) (Chronic) Prostate cancer (Chronic) Pleural effusion, right (Chronic) PUD (peptic ulcer disease) (Chronic) "EGD 06/2017- Normal esophagus, Gastritis, Normal examined duodenum. " Surgical History History of cataract surgery (Chronic) S/P cholecystectomy (Chronic) S/P AAA repair (Chronic) S/P TAVR (transcatheter aortic valve replacement) (Chronic) Hx of CABG (Chronic) "" Family History Mother Cardiac arrhythmia Diabetes Hyperlipidemia Grandfather Cancer Father Diabetes Hyperlipidemia Myocardial infarction Stroke Brother Hyperlipidemia Grandmother Stroke Other Lung disease Social History Beliefs That Will Affect Care: None marital status: / Current Living Situation: Personal Care Facility Current Living Situation Comment: Assisted Living current occupational status: retired Other Information That Helps Us Care for You: No Feels Safe at Home: Yes Safety Concerns: Feels Safe At This Time Smoking Status: Unknown if ever smoked Hx Alcohol Use: No Hx Substance Use: No Review of Systems Review of Systems: All systems reviewed & are unremarkable except as noted in HPI & below Physical Exam Constitutional: WD/WN, vitals as above Eyes: PERRL, conjunctivae normal, anicteric sclerae ENMT: external ear and nose normal, oropharynx normal Neck: trachea midline, no thyromegaly Respiratory: normal respiratory effort, lungs clear to auscultation Cardiovascular: Rate/Rhythm: regular rate and regular rhythm Heart Sounds: normal S1 and normal S2; no gallop and no murmur Palpation: normal PMI Vessels: normal carotid upstroke and radial pulses present; no JVD and no carotid bruit Extremities: no edema Gastrointestinal (Abdomen): normal bowel sounds, soft, nontender, no hepatosplenomegaly Musculoskeletal: no cyanosis or clubbing, extremities motor strength 5/5 Skin: no rashes, warm and dry Neurologic: PERRL, EOMI, accommodation nl, no face palsy, no dysarthria Psychiatric: A+Ox3, euthymic affect Results & Data Vital Signs (Past 12 Hours) Vital Signs Temp Pulse Pulse Resp BP BP Pulse Ox 12/31/18 06:35 36.4 C L 72 16 144/84 H 94 12/31/18 06:23 63 20 120/68 97 12/31/18 05:01 68 20 121/68 98 12/31/18 04:26 69 27 H 99/61 L 96 12/31/18 04:24 84 21 105/65 95 12/31/18 02:38 36.6 C 85 26 H 121/81 96 Laboratory Results Laboratory Results - last 24 hr 12/31/18 12/31/18 12/31/18 02:12 02:12 02:12 WBC 6.78 RBC 4.12 L Hgb 12.5 L Hct 36.5 L MCV 88.6 MCH 30.3 MCHC 34.2 RDW Std Deviation 49.7 H RDW Coeff of Imck 15.3 H Plt Count 148 MPV 9.1 Immature Gran % (Auto) 0.1 Neut % (Auto) 68.7 Lymph % (Auto) 16.8 [place] % (Auto) 10.3 Eos % (Auto) 3.7 Baso % (Auto) 0.4 Immature Gran # (Auto) 0.01 Neut # (Auto) 4.65 Lymph # (Auto) 1.14 L [place] # (Auto) 0.70 H Eos # (Auto) 0.25 Baso # (Auto) 0.03 PT 11.0 INR 1.1 APTT 25.4 PTT Ratio 0.9 Sodium 141 Potassium 4.5 Chloride 107 Carbon Dioxide 28 Anion Gap 6.0 BUN 34 H Creatinine 2.06 H Est Cr Clr Drug Dosing 25.2 Est GFR ( Amer) 32.4 Est GFR (Non-Af Amer) 27.9 BUN/Creatinine Ratio 16.5 Glucose 60 L POC Glucose Calcium 8.8 Total Bilirubin 0.6 AST 20 ALT 15 Alkaline Phosphatase 111 Troponin I < 0.015 NT-Pro-B Natriuret Pep 5227 H Total Protein 7.4 Albumin 3.4 Globulin 4.0 Albumin/Globulin Ratio 0.9 12/31/18 12/31/18 12/31/18 07:11 07:38 07:39 WBC RBC Hgb Hct MCV MCH MCHC RDW Std Deviation RDW Coeff of Mick Plt Count MPV Immature Gran % (Auto) Neut % (Auto) Lymph % (Auto) [place] % (Auto) Eos % (Auto) Baso % (Auto) Immature Gran # (Auto) Neut # (Auto) Lymph # (Auto) [place] # (Auto) Eos # (Auto) Baso # (Auto) PT INR APTT PTT Ratio Sodium Potassium Chloride Carbon Dioxide Anion Gap BUN Creatinine Est Cr Clr Drug Dosing Est GFR ( Amer) Est GFR (Non-Af Amer) BUN/Creatinine Ratio Glucose POC Glucose 47 L* 54 L* Calcium Total Bilirubin AST ALT Alkaline Phosphatase Troponin I < 0.015 NT-Pro-B Natriuret Pep Total Protein Albumin Globulin Albumin/Globulin Ratio 12/31/18 12/31/18 12/31/18 07:44 08:14 08:14 WBC RBC Hgb Hct MCV MCH MCHC RDW Std Deviation RDW Coeff of Mick Plt Count MPV Immature Gran % (Auto) Neut % (Auto) Lymph % (Auto) [place] % (Auto) Eos % (Auto) Baso % (Auto) Immature Gran # (Auto) Neut # (Auto) Lymph # (Auto) [place] # (Auto) Eos # (Auto) Baso # (Auto) PT INR APTT PTT Ratio Sodium Potassium Chloride Carbon Dioxide Anion Gap BUN Creatinine Est Cr Clr Drug Dosing Est GFR ( Amer) Est GFR (Non-Af Amer) BUN/Creatinine Ratio Glucose POC Glucose 56 L* 70 90 Calcium Total Bilirubin AST ALT Alkaline Phosphatase Troponin I NT-Pro-B Natriuret Pep Total Protein Albumin Globulin Albumin/Globulin Ratio Diagnostic Findings Echocardiogram 11/11/2016 The examination is adequate to evaluate the referral indication. The qualitative LV ejection fraction is 6064% (normal). No LV segmental wall motion abnormalities. The patient is status post TAVR with Flores type prosthetic valve peak aortic valve velocity 1.4 m/s Overall normal prosthetic valve function. Repeat echocardiogram pending ECG Additional Comments: 31-DEC-2018 02:28:54 [facility]-EDSTAT ROUTINE RETRIEVAL Atrial fibrillation Low voltage QRS Cannot rule out Anterior infarct (cited on or before 31-DEC-2018) Abnormal ECG When compared with ECG of 03-JUN-2018 08:24, Nonspecific T wave abnormality now evident in Anterior leads
[2018-12-31] MEDS ORDERED: FUROSEMIDE 20 MG in SYRINGE 0 ML IV ONE (12:00)
[2018-12-31] MEDS ORDERED: PERFLUTREN LIPID MICROSPHERE (DEFINITY) IV ONE (14:04)
[2018-12-31 15:09] LABS: Appearance Urine Clear (Clear); Bilirubin Urine Negative (Negative); Blood Urine Negative (Negative); Color Urine Yellow; Glucose Urine UA Negative (Negative); Ketones Urine Negative (Negative); Leukocyte Esterase Urine Negative (Negative); Nitrite Urine Negative (Negative); Protein Urine Negative (Negative); Specific Gravity Urine 1.009 (1.000-1.030); Urobilinogen Urine Negative (Negative); pH Urine 6.5 (4.5-7.5)
--- NOTE | 2018-12-31 15:56 | Ultrasound Report ---
ULTRASOUND OF THE ABDOMINAL AORTA CLINICAL HISTORY: Generalized abdominal pain.. COMPARISON STUDY: Abdominal CT dated 06/24/2017. TECHNIQUE: Multiple edwards scale, color Doppler, and spectral Doppler sonograms of the abdominal aorta and iliac arteries are performed. Images are reviewed in the transverse and longitudinal planes. FINDINGS: There is advanced atherosclerotic calcification and irregularity noted throughout the abdominal aorta . The proximal abdominal aorta is not visualized. The midportion of the abdominal aorta measures 2.5 x 3.1 cm (AP times transverse). There is an aneurysm of the mid to distal abdominal aorta with a sten t graft in place. The residual aneurysm sac measures 4.0 x 4.3 cm. The right common iliac artery martha ures up to 1.5 cm and the left common iliac artery measures up to 1.3 cm. The stent graft is patent w ith normal Doppler arterial waveforms. Velocities within the abdominal aorta measure up to 39 cm/s. IMPRESSION: 1. An aortobiiliac stent graft is in place and patent. 2. The residual aneurysm sac measures 4.0 x 4.3 cm. This is similar to previous. Electronically signed by: Howie Last M.D. 12/31/2018 3:55 PM
[2019-01-01 04:14] LABS: Basophils # (auto) 0.04 K/uL (0-0.2); Basophils % (auto) 0.7 %; Eosinophils # (auto) 0.35 K/uL (0-0.5); Eosinophils % (auto) 5.9 %; Hematocrit (blood only) 34.9 % (42-52); Hemoglobin 11.9 g/dL (14.0-18.0); Immature Granulocytes # (auto) 0.01 K/uL (0.00-0.02); Immature Granulocytes % (auto) 0.2 %; Lymphocytes # (auto) 0.88 K/uL (1.2-3.4); Lymphocytes % (auto) 14.9 %; Mean Corpuscular Volume 87.9 fL (80-100); Mean Platelet Volume 8.8 fL (7.4-10.4); Monocytes # (auto) 0.64 K/uL (0.11-0.59); Monocytes % (auto) 10.8 %; Neutrophils # (auto) 3.98 K/uL (1.4-6.5); Neutrophils % (auto) 67.5 %; Platelet Count 129 K/uL (130-400); RDW Coefficient of Variation 15.1 % (11.5-14.5); RDW Standard Deviation 48.5 fL (36.4-46.3); Red Blood Count 3.97 M/uL (4.7-6.1)
[2019-01-01 04:31] LABS: BUN Creatinine Ratio 17.8 (10-20); Calcium 8.5 mg/dl (8.5-10.1); Creatinine Clr Calc Pharmacy 26.2 ml/min; Est GFR (African American) 33.3; Est GFR (Non-African American) 28.8; Potassium 4.5 mmol/L (3.5-5.1)
[2019-01-01 04:43] LABS: Mean Corpuscular Hgb Conc 34.1 g/dL (32-36)
[2019-01-01 07:36] LABS: Estimated Average Glucose 117 mg/dl; Hemoglobin A1C 5.7 % (4.5-5.6)
[2019-01-01] MEDS: INSULIN ASPART 100 UNITS/ML 3 ML PEN SC SCH ×3 (09:00→16:57)
[2019-01-01] MEDS ORDERED: METOPROLOL SUCC 50MG EXT REL TAB PO SCH (09:00)
[2019-01-01] MEDS ORDERED: METOPROLOL SUCC 25MG EXT REL TAB PO SCH (09:30)
[2019-01-01] MEDS: CYANOCOBALAMIN 500 MCG TABLET (VITAMIN B-12) PO SCH (09:32)
[2019-01-01] MEDS: DOCUSATE SODIUM 100 MG CAP PO SCH (09:32)
[2019-01-01] MEDS: CEROVITE ADV FORMULA TAB PO SCH (09:33)
[2019-01-01] MEDS: ASPIRIN 81 MG ECTAB PO SCH (09:33)
[2019-01-01] MEDS: POTASSIUM CHLORIDE 10 MEQ TABCR PO SCH (09:33)
[2019-01-01] MEDS: PANTOprazole 40 MG TAB PO SCH (09:33)
[2019-01-01] MEDS: MIRABEGRON ER 25 MG TAB PO SCH (09:33)
[2019-01-01] MEDS: FUROSEMIDE 20 MG TAB PO SCH (09:33)
[2019-01-01] MEDS: HEPARIN SOD 5,000 UNIT/0.5 ML VIAL SQ SCH (10:23)
--- NOTE | 2019-01-01 10:42 | Cardiology Progress Note ---
Date of Service January 01, 2019 Assessment & Plan (1) Substernal chest pain: Symptoms described as with chest pressure and abdominal pressure and pain after bending no evidence of myocardial injury by initial EKGs and enzymes and O2 saturations within normal limits despite complaints of dyspnea Pleural effusions is observed Patient without further symptoms or complaints. Has responded to diuretics overnight. Telemetry does demonstrate transient bradycardia Echocardiogram with preserved LV systolic function Plan reduce Toprol to 25 mg p.o. daily, resume usual oral medications. Increase activity Patient may better served by returning to personal care facility promptly (2) Pleural effusion, left: (3) Renal insufficiency: Stable after single dose diuretics would give no with further IV diuretics (4) S/P TAVR (transcatheter aortic valve replacement): Normally functioning TAVR g (5) S/P AAA repair: No acute changes in abdominal ultrasound Subjective Patient seen and examined, chart medications telemetry reviewed. Patient intermittently confused last night but currently was able to answer questions. Notes no chest pain or abdominal pain. Sleeping lying flat without dyspnea. Did manifest good diuresis yesterday with single dose of IV furosemide. Telemetry last night demonstrated transient bradycardia while sleeping longest pause 4.3 second Physical Exam Constitutional: WD/WN, vitals as above Eyes: PERRL, conjunctivae normal, anicteric sclerae ENMT: external ear and nose normal, oropharynx normal Neck: trachea midline, no thyromegaly Respiratory: normal respiratory effort, lungs clear to auscultation Cardiovascular: Rate/Rhythm: + irregularly irregular Heart Sounds: normal S1, normal S2 and + murmur (Grade 2/6 systolic, no diastolic); no gallop Palpation: normal PMI Vessels: normal carotid upstroke and radial pulses present; no JVD and no carotid bruit Extremities: no edema Gastrointestinal (Abdomen): Percussion/Palpation: abdomen soft; abdomen nontender Musculoskeletal: no cyanosis or clubbing, extremities motor strength 5/5 Skin: no rashes, warm and dry Neurologic: PERRL, EOMI, accommodation nl, no face palsy, no dysarthria Psychiatric: A+Ox3, euthymic affect Results & Data Vital Signs (Past 12 Hours) Vital Signs Temp Pulse Pulse Resp BP BP Pulse Ox 01/01/19 07:05 36.3 C L 86 20 100/60 93 01/01/19 03:12 36.7 C 76 19 97/61 L 93 01/01/19 01:49 36.4 C L 72 19 116/64 96 Laboratory Results Laboratory Results - last 24 hr 12/31/18 12/31/18 12/31/18 11:41 13:04 14:15 WBC RBC Hgb Hct MCV MCH MCHC RDW Std Deviation RDW Coeff of Mick Plt Count MPV Immature Gran % (Auto) Neut % (Auto) Lymph % (Auto) [place] % (Auto) Eos % (Auto) Baso % (Auto) Immature Gran # (Auto) Neut # (Auto) Lymph # (Auto) [place] # (Auto) Eos # (Auto) Baso # (Auto) Sodium Potassium Chloride Carbon Dioxide Anion Gap BUN Creatinine Est Cr Clr Drug Dosing Est GFR ( Amer) Est GFR (Non-Af Amer) BUN/Creatinine Ratio Glucose POC Glucose 89 Estimat Average Glucose Hemoglobin A1c Calcium Magnesium Troponin I < 0.015 Urine Color Urine Appearance Urine pH Ur Specific [place] Urine Protein Urine Glucose (UA) Urine Ketones Urine Blood Urine Nitrite Urine Bilirubin Urine Urobilinogen Ur Leukocyte Esterase Nasal Screen MRSA (PCR) Negative 12/31/18 12/31/18 12/31/18 14:47 16:07 19:05 WBC RBC Hgb Hct MCV MCH MCHC RDW Std Deviation RDW Coeff of Mick Plt Count MPV Immature Gran % (Auto) Neut % (Auto) Lymph % (Auto) [place] % (Auto) Eos % (Auto) Baso % (Auto) Immature Gran # (Auto) Neut # (Auto) Lymph # (Auto) [place] # (Auto) Eos # (Auto) Baso # (Auto) Sodium Potassium Chloride Carbon Dioxide Anion Gap BUN Creatinine Est Cr Clr Drug Dosing Est GFR ( Amer) Est GFR (Non-Af Amer) BUN/Creatinine Ratio Glucose POC Glucose 70 Estimat Average Glucose Hemoglobin A1c Calcium Magnesium Troponin I < 0.015 Urine Color Yellow Urine Appearance Clear Urine pH 6.5 Ur Specific [place] 1.009 Urine Protein Negative Urine Glucose (UA) Negative Urine Ketones Negative Urine Blood Negative Urine Nitrite Negative Urine Bilirubin Negative Urine Urobilinogen Negative Ur Leukocyte Esterase Negative Nasal Screen MRSA (PCR) 12/31/18 01/01/19 01/01/19 20:16 01:53 03:52 WBC 5.90 RBC 3.97 L Hgb 11.9 L Hct 34.9 L MCV 87.9 MCH 30.0 MCHC 34.1 RDW Std Deviation 48.5 H RDW Coeff of Mick 15.1 H Plt Count 129 L MPV 8.8 Immature Gran % (Auto) 0.2 Neut % (Auto) 67.5 Lymph % (Auto) 14.9 [place] % (Auto) 10.8 Eos % (Auto) 5.9 Baso % (Auto) 0.7 Immature Gran # (Auto) 0.01 Neut # (Auto) 3.98 Lymph # (Auto) 0.88 L [place] # (Auto) 0.64 H Eos # (Auto) 0.35 Baso # (Auto) 0.04 Sodium Potassium Chloride Carbon Dioxide Anion Gap BUN Creatinine Est Cr Clr Drug Dosing Est GFR ( Amer) Est GFR (Non-Af Amer) BUN/Creatinine Ratio Glucose POC Glucose 109 H 88 Estimat Average Glucose Hemoglobin A1c Calcium Magnesium Troponin I Urine Color Urine Appearance Urine pH Ur Specific [place] Urine Protein Urine Glucose (UA) Urine Ketones Urine Blood Urine Nitrite Urine Bilirubin Urine Urobilinogen Ur Leukocyte Esterase Nasal Screen MRSA (PCR) 01/01/19 01/01/19 01/01/19 03:52 03:52 07:28 WBC RBC Hgb Hct MCV MCH MCHC RDW Std Deviation RDW Coeff of Mick Plt Count MPV Immature Gran % (Auto) Neut % (Auto) Lymph % (Auto) [place] % (Auto) Eos % (Auto) Baso % (Auto) Immature Gran # (Auto) Neut # (Auto) Lymph # (Auto) [place] # (Auto) Eos # (Auto) Baso # (Auto) Sodium 142 Potassium 4.5 Chloride 107 Carbon Dioxide 29 Anion Gap 6.0 BUN 36 H Creatinine 2.01 H Est Cr Clr Drug Dosing 26.2 Est GFR ( Amer) 33.3 Est GFR (Non-Af Amer) 28.8 BUN/Creatinine Ratio 17.8 Glucose 97 POC Glucose 108 H Estimat Average Glucose 117 Hemoglobin A1c 5.7 H Calcium 8.5 Magnesium 2.0 Troponin I Urine Color Urine Appearance Urine pH Ur Specific [place] Urine Protein Urine Glucose (UA) Urine Ketones Urine Blood Urine Nitrite Urine Bilirubin Urine Urobilinogen Ur Leukocyte Esterase Nasal Screen MRSA (PCR)
--- NOTE | 2019-01-01 15:02 | Hospitalist Progress Note ---
Date of Service January 01, 2019 Assessment & Plan (1) Substernal chest pain: (2) Pleural effusion, left: Patient presented with sudden onset chest pain and shortness of breath while at home. Saturation was found to be normal on room air as per EMS. Initially in ED she was wheezing and received neb treatment, wheezing improved. Symptoms resolved while in ED itself. Was found to have left pleural effusion. Episodic chest/abdominal pain/shortness of breath - Resolved Symptoms resolved by the time he arrived to ED. Denies any symptoms since admission Does have baseline co morbidities-CAD, remote CABG, LAD territory stent, transcatheter aortic valve replacement, abdominal aortic aneurysm repair, endovascular repair. -D/D considered: Cardiac etiology, however seems less likely. Does have left pleural effusion which is enlarging and associated with left lower lobe atelectasis/consolidation, stable small right pleural effusion with atelectasis, however symptoms were episodic and resolved. Etiology of left pleural effusion unclear but no infection suspected. US done- 475 cc of fluid. Has had thoracentesis done multiple times in past since the aortic valve replacement. -Received a dose of IV lasix 40 mg per cardiology on 12/31/18 and diuresed well. (Home dose: Lasix 20 mg daily) -Work up- EKG-no acute ischemic changes, troponin x3- Neg, Echo- EF 60-65%, Mild LVH, S/P TAVR, Mild MR, TR -Discussed with son at length- Had multiple thoracentesis in past. If patient is clinically stable, would like to avoid invasive procedure if possible. Agree with him. Will not do thoracentesis this time as stable and not hypoxic -Cardiology inputs appreciated Bradycardia Tele overnight- Pause of 4.3 sec while sleeping, asymptomatic. -Toprol XL was held and now restarted by cardiology at reduced dose of 25 mg daily History of diabetes II WITH HYPOGLYCEMIA Overtreated as HBA1C 5.7 on 12/02/2018 and continued to be on Insulin -On Lantus 10 units subcutaneous daily, Metformin 500 mg daily at home --> Will discontinue all diabetic medications. -HBA1C - 12/02/2018 - 5.7 -At 88 years, goal should be <7.0 -Monitor BGS outpatient as taken off all anti diabetic medications including metformin Acute renal failure and chronic kidney disease stage III Baseline creatinine 1.6- 1.8 , presents with creatinine of 2.06 and now trending down to 2.01 even after a dose of lasix today -Monitor creatinine outpatient History of coronary artery disease, status post coronary artery bypass graft, LAD territory stent. -Continue his home medication of aspirin, Toprol-XL, not on statin. History of hypertension. -Continue Toprol-XL, diuretics Gastroesophageal reflux disease. -Continue PPI History of abdominal aortic aneurysm repair -US abdominal aorta ordered by cardiology- Aortobiliary stent graft in place and patent. 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 Similar to previous History of TAVR Echo - reviewed as above Prostate cancer Deep venous thrombosis prophylaxis, subQ heparin and sequential compression devices. Dementia on and off confusion Monitor Code status: The patient wants to decide for himself when something happens, we will keep him full code for now. Disposition: PT/OT- awaiting inputs From [facility]--> Eager to be discharged. Ok to discharge home today after PT/OT evaluation Updated son over phone Subjective Patient intermittently confused last night but now awake, alert, oriented to place, person. Denies any SOB, Chest pain, fever, chills, cough, nausea, vomiting. Telemetry last night demonstrated transient bradycardia while sleeping longest pause 4.3 second Physical Exam Physical Exam: GENERAL- Awake, alert, oriented to self, place. LUNGS- Air entry bilaterally equal. No rales, rhonchi, crackles, wheezes heard. HEART- Regular rate and rhythm. No murmurs ABDOMEN- Soft, non tender, non distended, Bowel sounds heard. EXTREMITIES- Good peripheral pulses, no edema NEUROMUSCULAR- AAOX self, place, Grossly no focal deficits Results & Data Vital Signs (Past 12 Hours) Vital Signs Temp Pulse Pulse Resp BP BP Pulse Ox 01/01/19 11:32 36.4 C L 78 18 95/61 L 92 01/01/19 07:05 36.3 C L 86 20 100/60 93 01/01/19 03:12 36.7 C 76 19 97/61 L 93
--- NOTE | 2019-01-01 15:38 | Discharge Summary ---
Date of Service January 01, 2019 Admission HPI Per Admitting Provider HISTORY OF PRESENT ILLNESS: This is an 88-year-old male, [facility] resident with past medical history significant for history of CVA, history of atrial fibrillation, no longer on anticoagulation secondary to frequent falls, CAD status post CABG in , chronic diastolic CHF, chronic kidney disease stage III, history of depression, diabetes type 2, hyperlipidemia, chronic right pleural effusion, prostate cancer, peptic ulcer disease, presents with chest pain, shortness of breath. The patient suddenly felt severe chest pain and shortness of breath. He felt he could not breathe. When EMS went, his sats were okay and was transferred here. Initially, he was wheezing, with neb treatment, his wheezing improved. Currently, hemodynamically stable. The patient denies any chest pain or shortness of breath at this time. Somewhat hard to hear. He says he ambulates with a walker or cane. He has to be careful because he has frequent falls. Denies any headache, no blurred vision, no difficulty swallowing. Appetite is okay. No cough, no fever, no abdominal pain. Normal bowel and bladder movements. Principal Diagnosis 1. Chest pain, acute KS ruled out 2. Left pleural effusion 3. Bradycardia, asymptomatic 4. Hypoglycemia in setting of overtreated DM II 5. BRANDT on CKD III SECONDARY DIAGNOSIS ON DISCHARGE 1.HTN 2.Hx of Abdominal Aortic Aneurysm Repair 3. Hx of TAVR 4. Hx of prostate carcinoma 5. Dementia 6. GERD 7. Hx of CAD S/P CABG/ LAD territory stent Discharge Exam GENERAL- Awake, alert, oriented to self, place. LUNGS- Air entry bilaterally equal. No rales, rhonchi, crackles, wheezes heard. HEART- Regular rate and rhythm. No murmurs ABDOMEN- Soft, non tender, non distended, Bowel sounds heard. 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 Verified 12/31/18 02:51 donepezil Allergy Unknown Unknown Verified 12/31/18 02:51 venlafaxine Allergy Unknown Unknown Verified 12/31/18 02:51 lorazepam AdvReac Intermediate Fatigue Verified 12/31/18 02:51 Consultations 12/31/18 04:02 ED Decision to Admit Stat 12/31/18 06:52 Consult Case Management - Discharge Planning Routine 12/31/18 08:00 Consult Cardiology Routine Ordered Studies 12/31/18 06:52 US effusion-chest/mediastinum Urgent 12/31/18 11:39 US aorta duplex Routine Hospital Course (1) Substernal chest pain: (2) Pleural effusion, left: Patient presented with sudden onset chest pain and shortness of breath while at home. Saturation was found to be normal on room air as per EMS. Initially in ED she was wheezing and received neb treatment, wheezing improved. Symptoms resolved while in ED itself. Was found to have left pleural effusion. Episodic chest/abdominal pain/shortness of breath - Resolved Symptoms resolved by the time he arrived to ED. Denies any symptoms since admission Does have baseline co morbidities-CAD, remote CABG, LAD territory stent, transcatheter aortic valve replacement, abdominal aortic aneurysm repair, endovascular repair. -D/D considered: Cardiac etiology, however seems less likely. Does have left pleural effusion which is enlarging and associated with left lower lobe atelectasis/consolidation, stable small right pleural effusion with atelectasis, however symptoms were episodic and resolved. Etiology of left pleural effusion unclear but no infection suspected. US done- 475 cc of fluid. Has had thoracentesis done multiple times in past since the aortic valve replacement. -Received a dose of IV lasix 40 mg per cardiology on 12/31/18 and diuresed well. (Home dose: Lasix 20 mg daily) -Work up- EKG-no acute ischemic changes, troponin x3- Neg, Echo- EF 60-65%, Mild LVH, S/P TAVR, Mild MR, TR -Discussed with son at length- Had multiple thoracentesis in past. If patient is clinically stable, would like to avoid invasive procedure if possible. Agree with him. Will not do thoracentesis this time as stable and not hypoxic -Cardiology inputs appreciated Bradycardia Tele overnight- Pause of 4.3 sec while sleeping, asymptomatic. -Toprol XL was held and now restarted by cardiology at reduced dose of 25 mg daily History of diabetes II WITH HYPOGLYCEMIA Overtreated as HBA1C 5.7 on 12/02/2018 and continued to be on Insulin -On Lantus 10 units subcutaneous daily, Metformin 500 mg daily at home --> Will discontinue all diabetic medications. -HBA1C - 12/02/2018 - 5.7 -At 88 years, goal should be <7.0 -Monitor BGS outpatient as taken off all anti diabetic medications including metformin Acute renal failure and chronic kidney disease stage III Baseline creatinine 1.6- 1.8 , presents with creatinine of 2.06 and now trending down to 2.01 even after a dose of lasix today -Monitor creatinine outpatient History of coronary artery disease, status post coronary artery bypass graft, LAD territory stent. -Continue his home medication of aspirin, Toprol-XL, not on statin. History of hypertension. -Continue Toprol-XL, diuretics Gastroesophageal reflux disease. -Continue PPI History of abdominal aortic aneurysm repair -US abdominal aorta ordered by cardiology- Aortobiliary stent graft in place and patent. 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 Similar to previous History of TAVR Echo - reviewed as above Prostate cancer Deep venous thrombosis prophylaxis, subQ heparin and sequential compression devices. Dementia on and off confusion Monitor Code status: The patient wants to decide for himself when something happens, we will keep him full code for now. Disposition: From [facility]--> Eager to be discharged. Ok to discharge home today (ambulating and is at his baseline). Updated son over phone Total Time Total Time Spent Total Time Spent (In Minutes): 35 minutes Discharge Plan Discharge Items Patient Disposition: Personal [facility] Reason For Visit: SOB,CHEST PAIN Discharge Diagnosis: Chest pain, acute Myocardial infarction ruled out Hypoglycemia Discharge Goals: Decrease discomfort Activity: Resume your previous activity Activity Comment: As tolerated as prior to admission Non-emergency contact: Primary Care Provider Call non-emergency contact if: your symptoms worsen [facility] - Diet: Carb Consistent or DM2 and Low Sodium (2gm) Addtl Provider Instructions: MEDICATION CHANGES 1. Discontinued Metformin, Insulin as significant hypoglycemia noted and HBA1C 5.7 only. Goal for his age would be 7-8. 2. Toprol XL decreased to 25 mg daily from 150 mg q every other day due to pause noted on tele monitor/Borderline low BP Prescriptions: Continued docusate sodium 100 mg tablet 100 mg PO BID RF: 0 omeprazole 40 mg capsule,delayed release(DR/EC) 40 mg PO BID RF: 0 acetaminophen 325 mg tablet 650 mg PO Q4 PRN (Reason: Fever Or Pain) RF: 0 nitroglycerin 0.4 mg tablet, sublingual 0.4 mg SL DIRECTED PRN (Reason: Chest Pain) Qty: 100 RF: 0 cyanocobalamin (vitamin B-12) 1,000 mcg tablet 1,000 mcg PO QDB RF: 0 ondansetron HCl [Zofran] 4 mg Tablet 4 mg PO Q4 PRN (Reason: Nausea And Vomiting) RF: 0 potassium chloride 10 mEq Tablet Extended Release 10 meq PO BID RF: 0 aspirin [Aspir-81] 81 mg Tablet,Delayed Release (Dr/Ec) 81 mg PO QDB RF: 0 furosemide [Lasix] 20 mg Tablet 20 mg PO QAM RF: 0 Ensure Liquid 1 ea PO DAILY PRN (Reason: NEEDED) RF: 0 Therems-M 27-0.4 mg Tablet 1 tab PO DAILY RF: 0 lidocaine 4 % Gel 1 applic TOPICAL DIRECTED PRN (Reason: Pain) RF: 0 Myrbetriq 50 mg Tablet Extended Release 24 Hr 50 mg PO DAILY RF: 0 Changed metoprolol succinate 50 mg tablet extended release 24 hr 25 mg PO DAILY 30 Days Qty: 30 RF: 0 Discontinued metoprolol succinate 100 mg tablet extended release 24 hr 100 mg PO Q OTHER DAY RF: 0 metoprolol succinate 50 mg tablet extended release 24 hr 50 mg PO Q OTHER DAY RF: 0 metformin 500 mg tablet 500 mg PO QDB RF: 0 Lantus U-100 Insulin 100 unit/mL Solution 10 unit SUBCUT DAILY RF: 0 Stand-Alone Forms: [facility] Discharge Orders: Discharge Order (Routine); Ordered 01/01/19 Ordered By: Alea Wasserman Admission Data Admit Date/Time: 12/31/18 05:07 Attending Provider: Alea Wasserman Admit Provider: Vimal Persaud Primary Care Provider: ALEXANDRA Tuttle Other Providers: Vimal Persaud ; Haseeb Lloyd Service: Telemetry
== END 2019-01-01 19:52 | disposition home or self-care (01) ==
LOC: ED 02:24 → 2S 02:24

== ENCOUNTER 2019-01-19 10:27 | Inpatient (IN) ==
[2019-01-19] MEDS ORDERED: ALBUT/IPRATROP 3MG/0.5MG NEB 3 ML VIAL INH STA (10:39)
--- NOTE | 2019-01-19 10:54 | XRay Report ---
XR chest 1V portable CLINICAL HISTORY: 88 years-old Male presenting with sob. TECHNIQUE: Portable upright AP view of the chest was obtained. COMPARISON: 12/31/2018. FINDINGS: Median sternotomy wires and mediastinal surgical clips. Prosthetic aortic valve. Atherosclerosis of t he aortic arch. Cardiac silhouette enlarged. Decreased pulmonary vascular prominence in comparison to prior. Interval increase in the moderate to large left pleural effusion. A loculated small right ple ural effusion is also suggested. Poor aeration of the left lung base. Minimal right basilar opacities . No pneumothorax. Degenerative changes of the thoracic spine. Cholecystectomy clips noted. IMPRESSION: 1. Increasing moderate to large left pleural effusion with extensive left lung atelectasis. 2. Loculated small right pleural effusion and right basilar atelectasis. 3. Cardiomegaly with decreasing volume overload. Electronically signed by: Maximo Briones M.D. 01/19/2019 10:53 AM
[2019-01-19 11:49] LABS: Basophils # (auto) 0.03 K/uL (0-0.2); Basophils % (auto) 0.5 %; Eosinophils # (auto) 0.19 K/uL (0-0.5); Eosinophils % (auto) 2.9 %; Hemoglobin 11.6 g/dL (14.0-18.0); Immature Granulocytes # (auto) 0.01 K/uL (0.00-0.02); Immature Granulocytes % (auto) 0.2 %; Lymphocytes # (auto) 0.84 K/uL (1.2-3.4); Lymphocytes % (auto) 12.7 %; Mean Corpuscular Hemoglobin 29.8 pg (25-34); Mean Corpuscular Hgb Conc 34.1 g/dL (32-36); Mean Corpuscular Volume 87.4 fL (80-100); Mean Platelet Volume 8.5 fL (7.4-10.4); Monocytes # (auto) 0.64 K/uL (0.11-0.59); Monocytes % (auto) 9.7 %; Platelet Count 153 K/uL (130-400); RDW Coefficient of Variation 16.2 % (11.5-14.5); RDW Standard Deviation 51.2 fL (36.4-46.3); Red Blood Count 3.89 M/uL (4.7-6.1); White Blood Count 6.61 K/uL (4.8-10.8)
[2019-01-19 12:01] LABS: INR 1.1 (0.9-1.1); Partial Thromboplastin Time 26.3 Seconds (21.0-31.0); Prothrombin Time 11.5 Seconds (9.0-12.0)
[2019-01-19 12:05] LABS: Alanine Aminotransferase 14 U/L (12-78); Aspartate Aminotransferase 17 U/L (15-37); BUN Creatinine Ratio 13.7 (10-20); Blood Urea Nitrogen 25 mg/dl (7-18); Carbon Dioxide 28 mmol/L (21-32); Chloride 109 mmol/L (98-107); Creatinine Clr Calc Pharmacy 24.6 ml/min; Est GFR (African American) 37.6; Est GFR (Non-African American) 32.4; Glucose 115 mg/dl (70-99); Magnesium 2.3 mg/dl (1.8-2.4); Potassium 4.4 mmol/L (3.5-5.1); Sodium 144 mmol/L (136-145)
[2019-01-19 12:10] LABS: Albumin Globulin Ratio 0.8 (0.9-2); Alkaline Phosphatase 111 U/L (45-117); Bilirubin,Total 1.3 mg/dl (0.2-1); Globulin 3.7 gm/dl (2.5-4.0); Total Protein 6.7 gm/dl (6.4-8.2); Troponin I < 0.015 ng/ml (0-0.045)
--- NOTE | 2019-01-19 12:52 | History & Physical Report ---
Date of Service January 19, 2019 Assessment & Plan (1) Acute respiratory failure with hypoxia: (2) Pleural effusion, left: This is an 88yo M [facility] resident with a PMH of chronic diastolic heart failure, h/o CVA, dementia, chronic atrial fibrillation (poor candidate for anticoagulation due to frequent falls), s/p TAVR (2016), CAD (s/p CABG and stent), DM II and other medical problems listed below who presents with shortness of breath starting yesterday and was found to have increasing moderate to large left pleural effusion. -SOB since yesterday at [facility] with acute hypoxia in mid-80s. Now 98% on 2L NC. Does not require home O2 -CXR with increasing moderate to large left pleural effusion with extensive left lung atelectasis, loculated small right pleural effusion and right basilar atelectasis and cardiomegaly with decreasing volume overload -No leukocytosis. Electrolytes at baseline. Creatinine at upper limit of baseline at 1.82. Troponin negative. EKG with chronic A Fib, no changes -Has required thoracentesis at [facility] in the past in setting of chronic diastolic heart failure, h/o TAVR in 2016 -2D echo from December 2017 with preserved EF of 60 to 65%, mild LVH and evidence of prosthetic aortic valve -Discussed possible thoracentesis with son, who is medical POA. He is okay with intervention since patient is hypoxic, anxious about decreased air movement -Routine thoracic surgery consult placed with chest ultrasound ordered for lung markings -Continue home lasix, duonebs PRN (3) Chronic diastolic CHF (congestive heart failure): Appears euvolemic on exam -CXR with evidence of pleural effusion but no vascular congestion -Continue oral lasix dose (4) Atrial fibrillation: Chronic A fib -Not on anticoagulation due to history of frequent falls -Continue Toprol (5) CKD (chronic kidney disease), stage III: Cr 1.8, which is upper limit of normal for patient -Monitor with daily BMP (6) S/P TAVR (transcatheter aortic valve replacement): 2016 (7) Diabetes mellitus, type II: A1c of 5.7 11/25 -Metformin and lantus discontinued during previous admission, goal a1c <7 for 88yo patient -Monitor BSG, add sliding scale if needed (8) Hypertension: Normotensive -Continue Toprol (9) CAD (coronary artery disease): (10) Anemia: Hgb 11.6 (baseline ~11-12) -Monitor with daily CBC (11) Dyslipidemia: Statin intolerant (12) Overactive bladder: Continue Myrbetriq -Bladder scan PRN DVT Ppx: SQ heparin Code status: DNR per discussion with son/POA PCP: Tatyana Dispo: Observation med tele (may need to be changed to full admission). Discharge planning ordered when appropriate to return to [facility]. Patient seen in collaboration with Dr. Stafford. Please see addendum. History of Present Illness Chief Complaint: SOB Primary Care Provider: [facility] This is an 88yo M [facility] resident with a PMH of chronic diastolic heart failure, h/o CVA, dementia, chronic atrial fibrillation (poor candidate for anticoagulation due to frequent falls), s/p TAVR (2015), CAD (s/p CABG and dolores nt), DM II and other medical problems listed below who presents with shortness of breath starting yesterday along with generalized weakness. Was found to be hypoxic in the 80s and sent to ED for further evaluation. Does not require home oxygen. ROS is limited due to patient being a poor historian but denies fever, chills, cough or chest pain. Does have history of pleural effusions requiring thoracentesis in the past. Has chronic diastolic heart failure with most recent 2D echo in December 2017 with preserved EF of 60 to 65%, mild LVH and evidence of prosthetic aortic valve. Was recently admitted in December for chest pain and found to have left pleural effusion at that time. Per discussion with son then, intervention like thoracentesis was not taken due to patient remained clinically stable and oxygenating on room air. Today, patient is afebrile and saturating at 98% on 2 L nasal cannula. No leukocytosis. Electrolytes at baseline. Creatinine at upper limit of baseline at 1.82. Troponin negative. Chest x-ray with increasing moderate to large left pleural effusion with extensive left lung atelectasis, loculated small right pleural effusion and right basilar atelectasis and cardiomegaly with decreasing volume overload. EKG with chronic atrial fibrillation, no changes. Discussed goals of care with son, who is POA. States that he is okay with intervention like thoracentesis since patient is short of breath and hypoxic. CODE STATUS is DNR. 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 Verified 12/31/18 02:51 donepezil Allergy Unknown Unknown Verified 12/31/18 02:51 venlafaxine Allergy Unknown Unknown Verified 12/31/18 02:51 lorazepam AdvReac Intermediate Fatigue Verified 12/31/18 02:51 Home Medications Home Medications Medication Instructions Recorded Confirmed Type acetaminophen 325 mg tablet 650 mg PO Q4 PRN tab 12/24/18 01/19/19 History cyanocobalamin (vit B-12) 1,000 1,000 mcg PO QDB tab 12/24/18 01/19/19 History mcg tablet docusate sodium 100 mg tablet 100 mg PO BID tab 12/24/18 01/19/19 History nitroglycerin 0.4 mg sublingual 0.4 mg SL DIRECTED PRN #100 tab 12/24/18 01/19/19 History tablet omeprazole 40 mg capsule,delayed 40 mg PO BID cap 12/24/18 01/19/19 History release Ensure 1 ea PO DAILY PRN 12/31/18 01/19/19 History Myrbetriq 50 mg PO DAILY 12/31/18 01/19/19 History Therems-M 1 tab PO DAILY 12/31/18 01/19/19 History aspirin [Aspir-81] 162 mg PO QDB 12/31/18 01/19/19 History furosemide [Lasix] 20 mg PO QAM 12/31/18 01/19/19 History ondansetron HCl [Zofran] 4 mg PO Q4 PRN 12/31/18 01/19/19 History potassium chloride 10 meq PO BID 12/31/18 01/19/19 History metoprolol succinate 25 mg PO DAILY 30 Days #30 tab 01/01/19 01/19/19 Rx Past Med/Surg History Medical History CAD (coronary artery disease) (Chronic) "1980s - CABG 01/2008 - NSTEMI 07/14/15-cardiac catheterization: diffuse [place] vessel disease, BANEGAS to LAD graft patent, saphenous vein graft to circumflex total chronic occlusion, LAD and obtuse marginal stents had noncritical stent restenosis-medical management advised" Depression (Chronic) Dyslipidemia (Chronic) CVA (cerebral vascular accident) (Chronic) Atrial fibrillation (Chronic) Diabetes mellitus, type II (Chronic) CKD (chronic kidney disease), stage III (Chronic) Chronic diastolic CHF (congestive heart failure) (Chronic) Prostate cancer (Chronic) Pleural effusion, right (Chronic) PUD (peptic ulcer disease) (Chronic) "EGD 06/2017- Normal esophagus, Gastritis, Normal examined duodenum. " Surgical History History of cataract surgery (Chronic) S/P cholecystectomy (Chronic) S/P AAA repair (Chronic) S/P TAVR (transcatheter aortic valve replacement) (Chronic) Hx of CABG (Chronic) "" Family History Mother Cardiac arrhythmia Diabetes Hyperlipidemia Grandfather Cancer Father Diabetes Hyperlipidemia Myocardial infarction Stroke Brother Hyperlipidemia Grandmother Stroke Other Lung disease Social History Preferred Language: Cypriot Communication Ability: Impaired Environmental Consultant Required: No Beliefs That Will Affect Care: None marital status: / Current Living Situation: Senior Living Current Living Situation Comment: [facility] current occupational status: retired Other Information That Helps Us Care for You: No Feels Safe at Home: Yes Safety Concerns: Feels Safe At This Time Smoking Status: Unknown if ever smoked Hx Alcohol Use: No Hx Substance Use: No Review of Systems Review of Systems: Unobtainable due to cognitive status Physical Exam Physical Exam: General Appearance: WD/WN, no apparent distress, cooperative with exam Head: normocephalic, atraumatic Eyes: normal inspection, PERRL, EOMI ENT: hearing grossly normal, pharynx normal (moist mucous membranes) Neck: supple, no JVD, no adenopathy Respiratory/Chest: Clear to auscultation throughout with decreased lung sounds at left base. No wheezes, rales or rhonci appreciated. No respiratory distress or accessory muscle use Cardiovascular: irregular rate & rhythm, no murmur, normal peripheral pulses, no BLE edema Abdomen/GI: normal bowel sounds, soft, non-tender to palpation Extremities/Musculoskelatal: normal inspection, no calf tenderness, normal capillary refill, no pedal edema Neurologic/Psych: alert & oriented x 3, anxious mood, poor insight/judgement Skin: normal color, warm/dry Results & Data Vital Signs (Past 12 Hours) Vital Signs Temp Pulse Pulse Resp BP BP Pulse Ox 01/19/19 11:43 96 H 24 113/81 98 01/19/19 11:10 98 01/19/19 11:04 83 26 H 97 01/19/19 10:40 36.5 C 93 H 28 H 102/69 97 Laboratory Results Short CBC 01/19/19 Range/Units 11:15 WBC 6.61 (4.8-10.8) K/uL Hgb 11.6 L (14.0-18.0) g/dL Hct 34.0 L (42-52) % Plt Count 153 (130-400) K/uL BMP 01/19/19 11:15 Sodium 144 Potassium 4.4 Chloride 109 H Carbon Dioxide 28 BUN 25 H Creatinine 1.82 H Glucose 115 H Calcium 9.0 Cardiac Enzymes 01/19/19 Range/Units 11:15 Troponin I < 0.015 (0-0.045) ng/ml Liver Function 01/19/19 Range/Units 11:15 Total Bilirubin 1.3 H (0.2-1) mg/dl AST 17 (15-37) U/L ALT 14 (12-78) U/L Alkaline Phosphatase 111 (45-117) U/L Albumin 3.0 L (3.4-5.0) gm/dl Diagnostic Findings CXR: IMPRESSION: 1. Increasing moderate to large left pleural effusion with extensive left lung atelectasis. 2. Loculated small right pleural effusion and right basilar atelectasis. 3. Cardiomegaly with decreasing volume overload. ECG Rhythm: atrial fibrillation Change: no significant change Supervising Physician Co-Signing Physician Notes Attending addendum: The patient was seen and examined in medical telemetry unit This is an 88yo M [facility] resident with a PMH of chronic diastolic heart f ailure, h/o CVA, dementia, chronic atrial fibrillation (poor candidate for anticoagulation due to frequent falls), s/p TAVR (2016), CAD (s/p CABG and stent), DM II and other medical problems listed below who presents with shortness of breath starting yesterday and was found to have increasing moderate to large left pleural effusion. Denies any significant pain Apparently feels better since admission On examination No apparent distress at rest Hemodynamically stable and requiring 3 L of oxygen to maintain saturation Chest-decreased breath sounds both sides more on the left than the right ,mainly at the bases Heart-S1-S2 irregular Abdomen-benign Extremity-trace edema bilateral Admission labs and imaging studies reviewed Has significant left pleural effusion and will need thoracentesis Thoracic surgery consult Agree with assessment plan as outlined above by TALI Eason Dr
--- NOTE | 2019-01-19 14:27 | Ultrasound Report ---
US effusion-chest/mediastinum CLINICAL HISTORY: 88 years-old Male presenting with for possible thoracentesis-- with lung markings. TECHNIQUE: Real-time grayscale ultrasound imaging of the chest was performed for a focused evaluation at the site of clinical concern. COMPARISON: Chest x-ray from 01/19/2019 an ultrasound from 12/31/2018. FINDINGS: Trace simple appearing right pleural effusion with a calculated volume of 84 mL. This was not marked for thoracentesis. Previously this measured 78 mL. Moderate left pleural effusion with limited thin septations, possibly pulmonary ligaments. This has a calculated volume of 564 mL. Previously this measured 475 mL. This was marked for thoracentesis. IMPRESSION: 1. Moderate left and trace right pleural effusions. The left pleural effusion was marked for thorace ntesis. Electronically signed by: Maximo Briones M.D. 01/19/2019 2:25 PM
[2019-01-19] MEDS ORDERED: POLYETHYLENE (MIRALAX) 17 GM PACK PO PRN (14:52)
[2019-01-19] MEDS ORDERED: ONDANSETRON INJ 2 MG/ML 2 ML VIAL IV PRN (14:52)
[2019-01-19] MEDS ORDERED: NITROGLYCERIN SL 0.4 MG/TAB TAB SL PRN (14:52)
[2019-01-19] MEDS ORDERED: ACETAMINOPHEN 325 MG TAB PO PRN (14:52)
--- NOTE | 2019-01-19 16:08 | Emergency Department Note ---
Entered by Nisha Thomas acting as a scribe for History of Present Illness General Chief complaint: Respiratory Problems Stated complaint: sob/weakness Time Seen by Provider: 01/19/19 10:32 Source: patient Mode of arrival: ambulatory History of Present Illness Provider complaint: weakness and shortness of breath Onset (ago): day(s) 2 Location: left and right Quality: + other (weakness) Associated symptoms: + weakness The patient, who is a 88 year old male with a medical history of edema, pleural effusion and anemia, presents to the Emergency Room with complaints of shortness of breath that started two days ago. The patient's record states that along with shortness of breath he has had weakness for the past two days. The patient was brought in by ambulance from [facility]. Outpatient reports state that the patient had an O2 saturation of 83%. The patient states that he does not usually use oxygen. The patient's history is limited secondary to mental state. Home Medications Home Medications Medication Instructions Recorded Confirmed Type acetaminophen 325 mg tablet 650 mg PO Q4 PRN tab 12/24/18 01/19/19 History cyanocobalamin (vit B-12) 1,000 1,000 mcg PO QDB tab 12/24/18 01/19/19 History mcg tablet docusate sodium 100 mg tablet 100 mg PO BID tab 12/24/18 01/19/19 History nitroglycerin 0.4 mg sublingual 0.4 mg SL DIRECTED PRN #100 tab 12/24/18 01/19/19 History tablet omeprazole 40 mg capsule,delayed 40 mg PO BID cap 12/24/18 01/19/19 History release Ensure 1 ea PO DAILY PRN 12/31/18 01/19/19 History Myrbetriq 50 mg PO DAILY 12/31/18 01/19/19 History Therems-M 1 tab PO DAILY 12/31/18 01/19/19 History aspirin [Aspir-81] 162 mg PO QDB 12/31/18 01/19/19 History furosemide [Lasix] 20 mg PO QAM 12/31/18 01/19/19 History ondansetron HCl [Zofran] 4 mg PO Q4 PRN 12/31/18 01/19/19 History potassium chloride 10 meq PO BID 12/31/18 01/19/19 History metoprolol succinate 25 mg PO DAILY 30 Days #30 tab 01/01/19 01/19/19 Rx Allergies Allergy/AdvReac Type Severity Reaction Status Date / Time atorvastatin Allergy Severe CVA Verified 12/31/18 02:51 SYMPTOMS paroxetine Allergy Severe [employer] Verified 12/31/18 02:51 rosuvastatin Allergy Intermediate Myalgias. Verified 12/31/18 02:51 donepezil Allergy Unknown Unknown Verified 12/31/18 02:51 venlafaxine Allergy Unknown Unknown Verified 12/31/18 02:51 lorazepam AdvReac Intermediate Fatigue Verified 12/31/18 02:51 Past Med/Surg History Medical History CAD (coronary artery disease) (Chronic) " - CABG 01/2008 - NSTEMI 07/14/15-cardiac catheterization: diffuse shinnecock vessel disease, BANEGAS to LAD graft patent, saphenous vein graft to circumflex total chronic occlusion, LAD and obtuse marginal stents had noncritical stent restenosis-medical management advised" Depression (Chronic) Dyslipidemia (Chronic) CVA (cerebral vascular accident) (Chronic) Atrial fibrillation (Chronic) Diabetes mellitus, type II (Chronic) CKD (chronic kidney disease), stage III (Chronic) Chronic diastolic CHF (congestive heart failure) (Chronic) Prostate cancer (Chronic) Pleural effusion, right (Chronic) PUD (peptic ulcer disease) (Chronic) "EGD 06/2017- Normal esophagus, Gastritis, Normal examined duodenum. " Surgical History History of cataract surgery (Chronic) S/P cholecystectomy (Chronic) S/P AAA repair (Chronic) S/P TAVR (transcatheter aortic valve replacement) (Chronic) Hx of CABG (Chronic) "" Family History Mother Cardiac arrhythmia Diabetes Hyperlipidemia Grandfather Cancer Father Diabetes Hyperlipidemia Myocardial infarction Stroke Brother Hyperlipidemia Grandmother Stroke Other Lung disease Social History Preferred Language: Urdu Communication Ability: Impaired Beliefs That Will Affect Care: None marital status: / Current Living Situation: Personal Care Facility Current Living Situation Comment: [facility] current occupational status: retired Other Information That Helps Us Care for You: No Feels Safe at Home: Yes Safety Concerns: Feels Safe At This Time Smoking Status: Former smoker Hx Alcohol Use: Yes Hx Substance Use: No Review of Systems See HPI for pertinent positives & negatives. ROS limited secondary to mental state Physical Exam Vital Signs Vital Signs - 24 hr 01/19/19 10:40 01/19/19 11:04 01/19/19 11:10 Temperature 36.5 C Temperature Source Oral Sepsis Recent Fever Within 48 Hours No Sepsis New/Unexplained Change in Mental Status No Sepsis Action Taken by Nursing No Action Required Pulse Rate 93 H Pulse Rate [Right Finger] 83 Respiratory Rate 28 H 26 H Respiratory Effort / Characteristics Spontaneous Blood Pressure 102/69 Blood Pressure [Right Arm] Blood Pressure Mean 80 Blood Pressure Mean [Right Arm] Pulse Oximetry 97 97 98 Oxygen Delivery Method Nasal Cannula Nasal Cannula Nasal Cannula Oxygen Flow Rate 2 3 2 01/19/19 11:43 01/19/19 13:00 Temperature Temperature Source Sepsis Recent Fever Within 48 Hours Sepsis New/Unexplained Change in Mental Status Sepsis Action Taken by Nursing Pulse Rate Pulse Rate [Right Finger] 96 H 78 Respiratory Rate 24 20 Respiratory Effort / Characteristics Blood Pressure Blood Pressure [Right Arm] 113/81 107/71 Blood Pressure Mean Blood Pressure Mean [Right Arm] 91 83 Pulse Oximetry 98 98 Oxygen Delivery Method Nasal Cannula Nasal Cannula Oxygen Flow Rate 2 2 GENERAL: Patient is in no acute distress. HEENT: No acute trauma, normocephalic atraumatic, mucous membranes moist, no nasal congestion, no scleral icterus. NECK: No stridor, no adenopathy, no meningismus, trachea is midline. LUNGS: Increased respiratory rate. Decreased breath sounds in the left base. No wheezing. HEART: Subtle systolic murmur. Somewhat irregular rhythm. Normal rate ABDOMEN: Soft, nontender, bowel sounds positive, no hernias, no peritonitis. EXTREMITIES: No cyanosis or edema, full range of motion of all the joints without pain or difficulty, no signs for acute trauma. NEUROLOGIC: Difficulty getting a history. Able to answer simple yes/no questions. Moving all extremities equally. SKIN: No rash, no jaundice, no diaphoresis. Course 1035: Past medical records reviewed. The patient was evaluated in room B12. A complete history and physical exam was performed. 1219: I reviewed the patient's case with Emma Quezada PA-C. Dr. Wasserman, [facility] Hospitalist will evaluate the patient for further management. 1226: I reassessed and updated the patient on their plan of action. Consultations Consultation #1: I reviewed the patient's case with Emma Quezada PA-C. Dr. Wasserman [facility] Hospitalist will evaluate the patient for further management. Time: 12:19 Administered Medications Discontinued Medications Albuterol (Duoneb) 3 ml INH NOW STA Stop: 01/19/19 10:40 Last Admin: 01/19/19 11:04 Dose: 3 ml Documented by: [id number] Medical Decision Making Differential Diagnosis Differential diagnosis includes: pneumonia, congestive heart failure, bronchitis, pulmonary embolism, myocardial infarction, anemia, electrolyte imbalance, dehydration, as well as others were entertained. Medical Records Attestation: I reviewed the patient's medical records. Home Medications Current Medication List: was personally reviewed by me Laboratory Data Attestation: I reviewed the patient's lab results. Result diagrams: 01/19/19 11:15 01/19/19 11:15 Lab Results 01/19/19 01/19/19 01/19/19 Range/Units 11:15 11:15 11:15 WBC 6.61 (4.8-10.8) K/uL RBC 3.89 L (4.7-6.1) M/uL Hgb 11.6 L (14.0-18.0) g/dL Hct 34.0 L (42-52) % MCV 87.4 (80-100) fL MCH 29.8 (25-34) pg MCHC 34.1 (32-36) g/dL RDW Std Deviation 51.2 H (36.4-46.3) fL RDW Coeff of Mick 16.2 H (11.5-14.5) % Plt Count 153 (130-400) K/uL MPV 8.5 (7.4-10.4) fL Immature Gran % (Auto) 0.2 % Neut % (Auto) 74.0 % Lymph % (Auto) 12.7 % Nance % (Auto) 9.7 % Eos % (Auto) 2.9 % Baso % (Auto) 0.5 % Immature Gran # (Auto) 0.01 (0.00-0.02) K/uL Neut # (Auto) 4.90 (1.4-6.5) K/uL Lymph # (Auto) 0.84 L (1.2-3.4) K/uL Nance # (Auto) 0.64 H (0.11-0.59) K/uL Eos # (Auto) 0.19 (0-0.5) K/uL Baso # (Auto) 0.03 (0-0.2) K/uL PT 11.5 (9.0-12.0) Seconds INR 1.1 (0.9-1.1) APTT 26.3 (21.0-31.0) Seconds PTT Ratio 1.0 Sodium (136-145) mmol/L Potassium (3.5-5.1) mmol/L Chloride (98-107) mmol/L Carbon Dioxide (21-32) mmol/L Anion Gap (3-11) BUN (7-18) mg/dl Creatinine (0.6-1.4) mg/dl Est Cr Clr Drug Dosing ml/min Est GFR ( Amer) Est GFR (Non-Af Amer) BUN/Creatinine Ratio (10-20) Glucose (70-99) mg/dl Lactate 1.3 (0.4-2.0) mmol/L Calcium (8.5-10.1) mg/dl Magnesium (1.8-2.4) mg/dl Total Bilirubin (0.2-1) mg/dl AST (15-37) U/L ALT (12-78) U/L Alkaline Phosphatase (45-117) U/L Troponin I (0-0.045) ng/ml Total Protein (6.4-8.2) gm/dl Albumin (3.4-5.0) gm/dl Globulin (2.5-4.0) gm/dl Albumin/Globulin Ratio (0.9-2) Prostate Specific Ag (0-4) ng/ml 01/19/19 Range/Units 11:15 WBC (4.8-10.8) K/uL RBC (4.7-6.1) M/uL Hgb (14.0-18.0) g/dL Hct (42-52) % MCV (80-100) fL MCH (25-34) pg MCHC (32-36) g/dL RDW Std Deviation (36.4-46.3) fL RDW Coeff of Mick (11.5-14.5) % Plt Count (130-400) K/uL MPV (7.4-10.4) fL Immature Gran % (Auto) % Neut % (Auto) % Lymph % (Auto) % Nance % (Auto) % Eos % (Auto) % Baso % (Auto) % Immature Gran # (Auto) (0.00-0.02) K/uL Neut # (Auto) (1.4-6.5) K/uL Lymph # (Auto) (1.2-3.4) K/uL Nance # (Auto) (0.11-0.59) K/uL Eos # (Auto) (0-0.5) K/uL Baso # (Auto) (0-0.2) K/uL PT (9.0-12.0) Seconds INR (0.9-1.1) APTT (21.0-31.0) Seconds PTT Ratio Sodium 144 (136-145) mmol/L Potassium 4.4 (3.5-5.1) mmol/L Chloride 109 H (98-107) mmol/L Carbon Dioxide 28 (21-32) mmol/L Anion Gap 6.0 (3-11) BUN 25 H (7-18) mg/dl Creatinine 1.82 H (0.6-1.4) mg/dl Est Cr Clr Drug Dosing 24.6 ml/min Est GFR ( Amer) 37.6 Est GFR (Non-Af Amer) 32.4 BUN/Creatinine Ratio 13.7 (10-20) Glucose 115 H (70-99) mg/dl Lactate (0.4-2.0) mmol/L Calcium 9.0 (8.5-10.1) mg/dl Magnesium 2.3 (1.8-2.4) mg/dl Total Bilirubin 1.3 H (0.2-1) mg/dl AST 17 (15-37) U/L ALT 14 (12-78) U/L Alkaline Phosphatase 111 (45-117) U/L Troponin I < 0.015 (0-0.045) ng/ml Total Protein 6.7 (6.4-8.2) gm/dl Albumin 3.0 L (3.4-5.0) gm/dl Globulin 3.7 (2.5-4.0) gm/dl Albumin/Globulin Ratio 0.8 L (0.9-2) Prostate Specific Ag 3.140 (0-4) ng/ml Imaging Data Radiologist's Impression: Radiology results as stated below per my review and the radiologist's interpretation: XR chest 1V portable CLINICAL HISTORY: 88 years-old Male presenting with sob. TECHNIQUE: Portable upright AP view of the chest was obtained. COMPARISON: 12/31/2018. FINDINGS: Median sternotomy wires and mediastinal surgical clips. Prosthetic aortic valve. Atherosclerosis of the aortic arch. Cardiac silhouette enlarged. Decreased pulmonary vascular prominence in comparison to prior. Interval increase in the moderate to large left pleural effusion. A loculated small right pleural effusion is also suggested. Poor aeration of the left lung base. Minimal right basilar opacities. No pneumothorax. Degenerative changes of the thoracic spine. Cholecystectomy clips noted. IMPRESSION: 1. Increasing moderate to large left pleural effusion with extensive left lung atelectasis. 2. Loculated small right pleural effusion and right basilar atelectasis. 3. Cardiomegaly with decreasing volume overload. Electronically signed by: Maximo Briones M.D. 01/19/2019 10:53 AM ECG Data Attestation: I personally reviewed and interpreted this ECG as follows: Indication: SOB/dyspnea Rate (beats per minute): 79 Rhythm: atrial fibrillation Findings: + other (Diffuse nonspecifc ST change); no PVC Blood Pressure Blood Pressure Findings: Normal blood pressure MDM Narrative There is no leukocytosis. The patient is slightly anemic but this appears baseline looking back at previous testing. No coagulopathy. There is a an elevation to the creatinine but this appears baseline. No concerning liver enzyme elevation. Lactic acid level was not elevated making sepsis less likely. EKG showed atrial fibrillation, no acute ischemic change. Cardiac enzyme testing x1 is not consistent with acute cardiac injury. Chest film shows a large left pleural effusion, no CHF. On exam, the patient was resting comfortably. He was not noted to be hypoxic but he was on O2 supplementation while here in the ED. Patient received a DuoNeb, he is resting comfortably. The patient requires a hospital stay. He is hypoxic. He has an enlarging left pleural effusion which will likely need drained. I did speak to the patient and family, case management was consulted. The on-call hospitalist was consulted. Impression & Plan Hypoxia, Pleural effusion, left, Weakness Discharge Plan Visit Data *Final* Discharge Date/Time: 01/19/19 13:48 Chief Complaint: Respiratory Problems Stated Complaint: sob/weakness ED Provider: Howie Hinojosa Discharge Problem: Hypoxia, Pleural effusion, left, Weakness Patient Disposition: Admitted As Inpatient Discharge Instructions Interventions: ED Discharge Assessment Last Done: 01/19/19 13:48 The scribe's documentation has been prepared under my direction and personally reviewed by me in its entirety. I confirm that the note above accurately reflects all work, treatment, procedures, and medical decision making performed by me.
[2019-01-19] MEDS: PANTOprazole 40 MG TAB PO SCH (20:53)
[2019-01-19] MEDS: DOCUSATE SODIUM 100 MG CAP PO SCH (20:53)
[2019-01-19] MEDS: POTASSIUM CHLORIDE 10 MEQ TABCR PO SCH (20:53)
[2019-01-19] MEDS: HEPARIN SOD 5,000 UNIT/0.5 ML VIAL SQ SCH (21:27)
[2019-01-20] MEDS: HEPARIN SOD 5,000 UNIT/0.5 ML VIAL SQ SCH ×2 (05:45→13:51)
[2019-01-20 06:31] LABS: Hematocrit (blood only) 33.9 % (42-52); Hemoglobin 11.3 g/dL (14.0-18.0); Mean Corpuscular Hemoglobin 29.1 pg (25-34); Mean Corpuscular Hgb Conc 33.3 g/dL (32-36); Mean Corpuscular Volume 87.4 fL (80-100); Mean Platelet Volume 8.6 fL (7.4-10.4); Platelet Count 135 K/uL (130-400); RDW Coefficient of Variation 16.1 % (11.5-14.5); RDW Standard Deviation 50.8 fL (36.4-46.3); Red Blood Count 3.88 M/uL (4.7-6.1)
[2019-01-20 07:03] LABS: BUN Creatinine Ratio 14.3 (10-20); Calcium 8.6 mg/dl (8.5-10.1); Creatinine Clr Calc Pharmacy 27.1 ml/min; Est GFR (African American) 41.4; Est GFR (Non-African American) 35.7; Magnesium 2.3 mg/dl (1.8-2.4); Phosphorus 3.9 mg/dl (2.5-4.9)
[2019-01-20] MEDS: ASPIRIN 81 MG ECTAB PO SCH (08:01)
[2019-01-20] MEDS: DOCUSATE SODIUM 100 MG CAP PO SCH ×2 (08:06→20:05)
[2019-01-20] MEDS: PANTOprazole 40 MG TAB PO SCH ×2 (08:06→20:05)
[2019-01-20] MEDS: FUROSEMIDE 20 MG TAB PO SCH (08:07)
[2019-01-20] MEDS: POTASSIUM CHLORIDE 10 MEQ TABCR PO SCH ×2 (08:07→20:05)
[2019-01-20] MEDS: CYANOCOBALAMIN 500 MCG TABLET (VITAMIN B-12) PO SCH (08:07)
[2019-01-20] MEDS: CEROVITE ADV FORMULA TAB PO SCH (08:07)
[2019-01-20] MEDS: MIRABEGRON ER 25 MG TAB PO SCH (08:07)
[2019-01-20] MEDS ORDERED: METOPROLOL SUCC 25MG EXT REL TAB PO SCH (09:00)
--- NOTE | 2019-01-20 11:56 | Post Operative Brief Note ---
PG Immediate Post Op with CF Date of Surgery January 20, 2019 Pre & Post Diagnosis left pleural effusion Procedure Left thoracentesis under ultrasound guidance Surgeon Yovani Jiang MD, FACS [employer] none Estimated Blood Loss 0 Findings Consistent with Post-Op Diagnosis
--- NOTE | 2019-01-20 12:27 | XRay Report ---
XR chest 1V portable CLINICAL HISTORY: S/P Thoracentesis postthoracentesis COMPARISON STUDY: 01/19/2019 FINDINGS: Diminished volume of a left pleural effusion. No significant postprocedural pneumothorax. T race pleural fluid right base unchanged. Mild stable cardiomegaly. IMPRESSION: No evidence of pneumothorax post left thoracentesis. The above report was generated using voice recognition software. It may contain grammatical, syntax or spelling errors. Electronically signed by: Jamal An M.D. 01/20/2019 12:26 PM
[2019-01-20 15:23] LABS: Glucose Pleural Fluid 119 mg/dl
[2019-01-20 15:36] LABS: Appearance Pleural Fluid CLOUDY; Color Pleural Fluid AMBER; Mononuclear WBC Pleural 95.9 %; Polynuclear WBC Pleural 4.1 %; RBC Pleural Fluid (A) 18000 /uL; Source Pleural Fluid LEFT LUNG; WBC Pleural Fluid (A) 377 /uL
[2019-01-20 15:58] LABS: Amylase Pleural Fluid 41 U/L; LDH Pleural Fluid 176 U/L; Total Protein Pleural Fluid 3.3 g/dl
--- NOTE | 2019-01-20 17:50 | Hospitalist Progress Note ---
Date of Service January 20, 2019 Assessment & Plan (1) Acute respiratory failure with hypoxia: (2) Pleural effusion, left: Per admitting service notes This is an 88yo M [facility] resident with a PMH of chronic diastolic heart failure, h/o CVA, dementia, chronic atrial fibrillation (poor candidate for anticoagulation due to frequent falls), s/p TAVR (2016), CAD (s/p CABG and stent), DM II and other medical problems listed below who presents with shortness of breath starting yesterday and was found to have increasing moderate to large left pleural effusion. -SOB since yesterday at [facility] with acute hypoxia in mid-80s. Now 98% on 2L NC. Does not require home O2 -CXR with increasing moderate to large left pleural effusion with extensive left lung atelectasis, loculated small right pleural effusion and right basilar atelectasis and cardiomegaly with decreasing volume overload -No leukocytosis. Electrolytes at baseline. Creatinine at upper limit of baseline at 1.82. Troponin negative. EKG with chronic A Fib, no changes -Has required thoracentesis at [facility] in the past in setting of chronic diastolic heart failure, h/o TAVR in 2016 -2D echo from December 2017 with preserved EF of 60 to 65%, mild LVH and evidence of prosthetic aortic valve -Discussed possible thoracentesis with son, who is medical POA. He is okay with intervention since patient is hypoxic, anxious about decreased air movement -Routine thoracic surgery consult placed with chest ultrasound ordered for lung markings -Continue home lasix, duonebs PRN January 20, 2019 Status post thoracentesis Chest x-ray: Improvement of left pleural effusion Continue to wean off oxygen supplement Continue Lasix p.o. Appreciate thoracic surgery service recommendations Continue to monitor PT and OT evaluation (3) Chronic diastolic CHF (congestive heart failure): Appears euvolemic on exam -CXR with evidence of pleural effusion but no vascular congestion -Continue oral lasix dose (4) Atrial fibrillation: Chronic A fib -Not on anticoagulation due to history of frequent falls -Continue Toprol (5) CKD (chronic kidney disease), stage III: Cr 1.8, which is upper limit of normal for patient Within baseline range (6) S/P TAVR (transcatheter aortic valve replacement): 2016 (7) Diabetes mellitus, type II: A1c of 5.7 11/25 -Metformin and lantus discontinued during previous admission, goal a1c <7 for 88yo patient -Monitor BSG, add sliding scale if needed (8) Hypertension: Normotensive -Continue Toprol (9) CAD (coronary artery disease): (10) Anemia: Hgb 11.6 (baseline ~11-12) -Monitor with daily CBC (11) Dyslipidemia: Statin intolerant (12) Overactive bladder: Continue Myrbetriq -Bladder scan PRN DVT Ppx: SQ heparin Code status: DNR per discussion with son/POA PCP: Tatyana Dispo: Return to [facility] when medically stable Patient seen in collaboration with Dr. Stafford. Please see addendum. Subjective Follow-up for shortness of breath, left pleural effusion Status post left-sided thoracentesis this morning Tolerated procedure well Seen sitting up in bed, comfortable, not in distress His breathing is improved today, has intermittent dry cough Chest pain, shortness of breath palpitations, dizziness, abdominal pain, nausea No fevers or chills, no other symptoms Review of Systems Review of Systems: All systems reviewed & are unremarkable except as noted in HPI & below Physical Exam Physical Exam: General- oriented x2 , not in distress, speaks in sentences with no effort or accessory muscle use Head- atraumatic Eyes- PERRL, EOMI, anicteric ENT- oropharynx clear Neck- supple, no JVD, no adenopathy, no thyromegaly; carotids +2/2, no bruits appreciated Lungs-mild rales left base, clear on the right No wheezing Thoracentesis insertion site: No bleeding, no discharge Heart- normal rate, regular rhythm; no murmur, no gallop, no rub appreciated Abdomen- normal bowel sounds, nondistended, soft, nontender, no masses or hepatosplenomegaly Extremities- no pretibial edema, no calf tenderness; peripheral pulses intact Neuro- alert, oriented x 2; CN 2-12 grossly intact; motor 5/5 bilaterally;sensation 100% on all extremities; no other gross focal neurologic deficits Skin- warm & dry Results & Data Vital Signs (Past 12 Hours) Vital Signs Temp Pulse Pulse Resp BP Pulse Ox 01/20/19 14:58 36.6 C 64 16 115/70 98 01/20/19 12:42 77 01/20/19 11:29 62 20 121/80 97 01/20/19 07:02 36.4 C L 71 18 128/79 92
--- NOTE | 2019-01-21 00:28 | Consultation Report ---
DATE OF CONSULTATION: 01/20/2019 REASON FOR CONSULTATION: Recurrent left pleural effusion. HISTORY OF PRESENT ILLNESS: Ryan Mcknight is an 88-year-old man with some dementia, who was admitted with increasing shortness of breath by Dr. Ab Verdugo to the hospitalist service on 01/19/2019. The patient has a history of having a TAVR as well as coronary artery bypass grafting and had a left pleural effusion, which had to be drained on a couple occasions with this was 3 years ago. The patient has been short of breath and was hypoxic and presented to the hospital. He has not had a thoracentesis in 3 years. I had a long discussion with the patient's son, Ady Mcknight. I have been asked to evaluate him from a surgical perspective for a thoracentesis. PAST MEDICAL HISTORY: 1. Chronic atrial fibrillation. 2. Chronic renal insufficiency. 3. Diastolic congestive heart failure. 4. History of a TAVR for aortic stenosis. 5. Diabetes mellitus. 6. Hypertension. 7. Coronary artery disease status post coronary artery bypass grafting. 8. Dyslipidemia. 9. Overactive bladder. 10. Mild dementia. PAST SURGICAL HISTORY: 1. Coronary artery bypass grafting. 2. Transaortic valve repair. 3. Abdominal aortic aneurysm repair. 4. Cholecystectomy. 5. Cataract extractions. 6. Thoracentesis x2 on the left. MEDICATIONS: 1. Nitroglycerin sublingually p.r.n. 2. Omeprazole. 3. Metoprolol. 4. Potassium. 5. Myrbetriq. 6. Zofran. 7. Lasix. 8. Aspirin. 9. Ensure. ALLERGIES: 1. ATORVASTATIN. 2. PAROXETINE. 3. ROSUVASTATIN. 4. DONEPEZIL. 5. VENLAFAXINE. 6. LORAZEPAM. SOCIAL HISTORY: The patient is a resident of [facility]. He is not a smoker now. He is . He does not use alcohol or cigarettes at this time. FAMILY MEDICAL HISTORY: Mother has cardiac arrhythmias as well as diabetes. He had a grandfather with cancer and had a grandmother with a cerebrovascular accident. His father had diabetes, hyperlipidemia, myocardial infarction, coronary artery disease and cerebrovascular accident. REVIEW OF SYSTEMS: Difficult due to the patient's poor cognitive status. Apparently, he is not complaining of shortness of breath, but has been noted to be hypoxic. According to the staff, he has had no acute changes other than this hypoxia. PHYSICAL EXAMINATION: GENERAL: He is 5 feet 7 inches, 139-pound male who is awake, alert and quite confused. He appears disheveled. HEENT: His extraocular movements are intact. Sclerae are pale. He has evidence of old cataract extractions. NECK: Supple. I do not hear carotid bruits and he has no neck vein distention or adenopathy. LUNGS: He had decreased breath sounds on the left as would be expected. He is in atrial fibrillation. HEART: He has an irregularly irregular rhythm with no significant rub. He does have a well-healed sternotomy incision with no click. ABDOMEN: Flat, soft, nontender. EXTREMITIES: He has trace pretibial edema. His feet are warm and well perfused. NEUROLOGIC: He moves all extremities to command, but is quite confused. ASSESSMENT AND PLAN: Increasing left pleural effusion. He had an ultrasound in Radiology, which revealed that this was about 450-500 mL However, based on the x-ray, I think this is probably more. We will offer him a thoracentesis. MINH
--- NOTE | 2019-01-21 00:32 | Operative Report ---
DATE OF OPERATION: 01/20/2019 PREOPERATIVE DIAGNOSIS: Recurrent left pleural effusion. POSTOPERATIVE DIAGNOSIS: Left pleural effusion under ultrasound guidance. SURGEON: Yovani Jiang M.D. ANESTHESIA: Local. SPECIFICS OF PROCEDURE: The patient in a seated position, his left chest was evaluated and a spot was marked for a thoracentesis. I discussed this procedure with the patient's son, Ady Mcknight, who was his power of trade mark attorney before the procedure. After appropriate time-out had been called and he was prepped and draped in usual sterile fashion. A 25-gauge needle with 1% Xylocaine was used to anesthetize the skin and subcutaneous tissues and then I went over the rib and got fluid right away. A guidewire was inserted through the needle and the needle removed. Triple-lumen catheter was slid over the guidewire and the guidewire removed. 1000 mL of serous fluid was drained. He had some reexpansion pain, we stopped. His x-ray looked quite good afterwards. I attest to the content of the Intraoperative Record and any orders documented therein. Any exception s are noted below.
--- NOTE | 2019-01-21 06:31 | Hospitalist Progress Note ---
Date of Service January 21, 2019 Subjective Made aware by RN of sinus pauses this a.m. Longest episode was about 4.5 seconds around 6 AM as per RN. Patient asymptomatic as per RN. AP Asymptomatic sinus pauses hx AFib ? SSS AM electrolytes now Decrease maintenance beta-iris dose May need Cardiology opinion regarding issue if with recurrence. Will relay to AM provider. Results & Data Vital Signs (Past 12 Hours) Vital Signs Temp Pulse Pulse Resp BP Pulse Ox 01/21/19 06:23 86 123/77 99 01/21/19 04:49 36.8 C 84 18 112/67 94 01/21/19 01:09 85 01/20/19 23:00 36.7 C 94 H 19 114/64 93 01/20/19 20:33 92 H 22 93 01/20/19 19:55 36.7 C 101 H 18 121/77
[2019-01-21 06:57] LABS: Hematocrit (blood only) 35.2 % (42-52); Hemoglobin 11.7 g/dL (14.0-18.0); Mean Corpuscular Hemoglobin 29.3 pg (25-34); Mean Corpuscular Hgb Conc 33.2 g/dL (32-36); Mean Corpuscular Volume 88.2 fL (80-100); Mean Platelet Volume 8.7 fL (7.4-10.4); Platelet Count 131 K/uL (130-400); RDW Standard Deviation 51.4 fL (36.4-46.3); Red Blood Count 3.99 M/uL (4.7-6.1); White Blood Count 5.66 K/uL (4.8-10.8)
[2019-01-21 07:27] LABS: BUN Creatinine Ratio 14.3 (10-20); Calcium 8.4 mg/dl (8.5-10.1); Creatinine Clr Calc Pharmacy 29.5 ml/min; Est GFR (African American) 44.9; Est GFR (Non-African American) 38.8; Magnesium 2.2 mg/dl (1.8-2.4); Potassium 4.5 mmol/L (3.5-5.1)
[2019-01-21 07:38] LABS: Thyroid Stimulating Hormone 2.15 uIu/ml (0.300-4.500)
[2019-01-21] MEDS: HEPARIN SOD 5,000 UNIT/0.5 ML VIAL SQ SCH ×2 (07:56→20:57)
[2019-01-21] MEDS: POTASSIUM CHLORIDE 10 MEQ TABCR PO SCH ×2 (07:58→20:57)
[2019-01-21] MEDS: CYANOCOBALAMIN 500 MCG TABLET (VITAMIN B-12) PO SCH (07:59)
[2019-01-21] MEDS: MIRABEGRON ER 25 MG TAB PO SCH (07:59)
[2019-01-21] MEDS: DOCUSATE SODIUM 100 MG CAP PO SCH ×2 (08:00→20:57)
[2019-01-21] MEDS: CEROVITE ADV FORMULA TAB PO SCH (08:00)
[2019-01-21] MEDS: PANTOprazole 40 MG TAB PO SCH ×2 (08:00→20:57)
[2019-01-21] MEDS: ASPIRIN 81 MG ECTAB PO SCH (08:00)
[2019-01-21] MEDS: FUROSEMIDE 20 MG TAB PO SCH (08:01)
--- NOTE | 2019-01-21 08:56 | Hospitalist Progress Note ---
Date of Service January 21, 2019 Assessment & Plan (1) Acute respiratory failure with hypoxia: (2) Pleural effusion, left: Per admitting service notes This is an 88yo M [facility] resident with a PMH of chronic diastolic heart failure, h/o CVA, dementia, chronic atrial fibrillation (poor candidate for anticoagulation due to frequent falls), s/p TAVR (2016), CAD (s/p CABG and stent), DM II and other medical problems listed below who presents with shortness of breath starting yesterday and was found to have increasing moderate to large left pleural effusion. -SOB since yesterday at [facility] with acute hypoxia in mid-80s. Now 98% on 2L NC. Does not require home O2 -CXR with increasing moderate to large left pleural effusion with extensive left lung atelectasis, loculated small right pleural effusion and right basilar atelectasis and cardiomegaly with decreasing volume overload -No leukocytosis. Electrolytes at baseline. Creatinine at upper limit of baseline at 1.82. Troponin negative. EKG with chronic A Fib, no changes -Has required thoracentesis at [facility] in the past in setting of chronic diastolic heart failure, h/o TAVR in 2016 -2D echo from December 2017 with preserved EF of 60 to 65%, mild LVH and evidence of prosthetic aortic valve -Discussed possible thoracentesis with son, who is medical POA. He is okay with intervention since patient is hypoxic, anxious about decreased air movement -Routine thoracic surgery consult placed with chest ultrasound ordered for lung markings -Continue home lasix, duonebs PRN Status post thoracentesis Chest x-ray: Improvement of left pleural effusion weaned off O2 supplement Continue Lasix p.o. Appreciate thoracic surgery service recommendations Continue to monitor PT and OT evaluation (3) Chronic diastolic CHF (congestive heart failure): Appears euvolemic on exam -CXR with evidence of pleural effusion but no vascular congestion s/p Thoracentesis appears euvolemic -Continue oral lasix dose (4) Atrial fibrillation: Chronic A fib -Not on anticoagulation due to history of frequent falls (+) sinus pauses and episodes of bradycardia HOLD Metoprolol XL will consult Cardiology service (5) CKD (chronic kidney disease), stage III: Cr 1.8, which is upper limit of normal for patient Within baseline range (6) S/P TAVR (transcatheter aortic valve replacement): 2016 (7) Diabetes mellitus, type II: A1c of 5.7 11/25 -Metformin and lantus discontinued during previous admission, goal a1c <7 for 88yo patient -Monitor BSG, add sliding scale if needed (8) Hypertension: Normotensive HOLD Metoprolol in light of sinus pauses (9) CAD (coronary artery disease): (10) Anemia: Hgb 11.6 (baseline ~11-12) -Monitor with daily CBC (11) Dyslipidemia: Statin intolerant (12) Overactive bladder: Continue Myrbetriq -Bladder scan PRN DVT Ppx: SQ heparin Code status: DNR per discussion with son/POA PCP: Tatyana Dispo: Return to the [facility] when medically stable Subjective ff up for left sided pleural effusion seen resting in bed, comfortable just had breakfast telemetry monitoring revealed 4 and 2-3 second sinus pauses this morning, also had episodes of 2 sec sinus pauses overnight, with episodes of bradycardia states he feels fine overall denies dizziness, chest pain, dyspnea, palpitations no other symptoms Review of Systems Review of Systems: All systems reviewed & are unremarkable except as noted in HPI & below Physical Exam Physical Exam: General- oriented x 1, not in distress, speaks in sentences with no effort or accessory muscle use Eyes- anicteric Neck- no JVD Lungs- clear breath sounds bilaterally, no crackles, no wheezing Heart- normal rate, regular rhythm; no murmurs Abdomen- normal bowel sounds, nondistended, soft, nontender Extremities- no pretibial edema, no calf tenderness Neuro- alert, oriented x1; no gross focal neurologic deficits Skin- warm & dry Results & Data Vital Signs (Past 12 Hours) Vital Signs Temp Pulse Pulse Resp BP Pulse Ox 01/21/19 07:28 36.5 C 84 20 127/76 92 01/21/19 06:23 86 123/77 99 01/21/19 04:49 36.8 C 84 18 112/67 94 01/21/19 01:09 85 01/20/19 23:00 36.7 C 94 H 19 114/64 93 Laboratory Results Laboratory Results - last 24 hr 01/20/19 01/21/19 01/21/19 14:38 06:40 06:40 WBC 5.66 RBC 3.99 L Hgb 11.7 L Hct 35.2 L MCV 88.2 MCH 29.3 MCHC 33.2 RDW Std Deviation 51.4 H RDW Coeff of Mick 16.0 H Plt Count 131 MPV 8.7 Sodium 146 H Potassium 4.5 Chloride 113 H Carbon Dioxide 29 Anion Gap 4.0 BUN 23 H Creatinine 1.57 H Est Cr Clr Drug Dosing 29.5 Est GFR ( Amer) 44.9 Est GFR (Non-Af Amer) 38.8 BUN/Creatinine Ratio 14.3 Glucose 118 H Calcium 8.4 L Magnesium 2.2 TSH 2.150 Pleural Fluid Source LEFT LUNG Pleural Color GRUPO Pleural Appearance CLOUDY Pleural WBC 377 [place] RBC [address] Pleural Polynuclear % 4.1 Pleural Mononuclear % 95.9 Pleural Total Protein 3.3 Pleural LDH 176 Pleural Glucose 119 Pleural Amylase 41
[2019-01-21] MEDS ORDERED: METOPROLOL SUCC 25MG EXT REL TAB PO SCH (09:00)
--- NOTE | 2019-01-21 14:12 | Cardiology Consultation ---
Date of Consultation January 21, 2019 Assessment & Plan (1) Pleural effusion, left: (2) Acute respiratory failure with hypoxia: (3) Hx of CABG: (4) S/P TAVR (transcatheter aortic valve replacement): (5) S/P AAA repair: (6) Atrial fibrillation: The patient is comfortable post pleurocentesis. No ongoing cardiac complaints at the present time. I would continue supportive care for this elderly demented patient. No additional cardiac testing is indicated. History of Present Illness Attending Physician: Bert Beckford MD History of Present Illness This is an 88-year-old male patient who was last seen in our practice in 2017 with the history as outlined below. He has been a resident of [facility]. He awoke the morning of the admission with shortness of breath and when he presented to the hospital was noticed to have a large left pleural effusion. The left pleural effusion was tapped by surgery earlier, the patient is now resting comfortably. The patient is not a good historian due to dementia and the information is taken from the medical record. Past medical history: 1.Severe symptomatic aortic stenosis status post August TAVR (23 mm Flores 3) via right femoral percutaneous access 2.ASCVD 1.Status post CABG in the at [facility] 2.January 2008 NSTEMI. 3.Cardiac catheterization performed at [facility] on 07/14/2015 revealed diffuse [place] vessel disease. The BANEGAS to LAD graft was patent. The saphenous vein graft to the circumflex was found to have a total chronic occlusion. The stents previously placed in the LAD and obtuse marginal 1 had noncritical in stent restenosis for which continued medical management was recommended. 3.AAA, 5 x 4.7 cm on 06/2015 (Followed at [facility]) 4.Chronic atrial fibrillation. Patient declining anticoagulation. 5.Incidental pulmonary nodule on June 2015 CT with 12 month follow-up CT recommended. 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 Verified 12/31/18 02:51 donepezil Allergy Unknown Unknown Verified 12/31/18 02:51 venlafaxine Allergy Unknown Unknown Verified 12/31/18 02:51 lorazepam AdvReac Intermediate Fatigue Verified 12/31/18 02:51 Home Medications Home Medications Medication Instructions Recorded Confirmed Type acetaminophen 325 mg tablet 650 mg PO Q4 PRN tab 12/24/18 01/19/19 History cyanocobalamin (vit B-12) 1,000 1,000 mcg PO QDB tab 12/24/18 01/19/19 History mcg tablet docusate sodium 100 mg tablet 100 mg PO BID tab 12/24/18 01/19/19 History nitroglycerin 0.4 mg sublingual 0.4 mg SL DIRECTED PRN #100 tab 12/24/18 01/19/19 History tablet omeprazole 40 mg capsule,delayed 40 mg PO BID cap 12/24/18 01/19/19 History release Ensure 1 ea PO DAILY PRN 12/31/18 01/19/19 History Myrbetriq 50 mg PO DAILY 12/31/18 01/19/19 History Therems-M 1 tab PO DAILY 12/31/18 01/19/19 History aspirin [Aspir-81] 162 mg PO QDB 12/31/18 01/19/19 History furosemide [Lasix] 20 mg PO QAM 12/31/18 01/19/19 History ondansetron HCl [Zofran] 4 mg PO Q4 PRN 12/31/18 01/19/19 History potassium chloride 10 meq PO BID 12/31/18 01/19/19 History metoprolol succinate 25 mg PO DAILY 30 Days #30 tab 01/01/19 01/19/19 Rx Patient History Medical History CAD (coronary artery disease) (Chronic) "1980s - CABG 01/2008 - NSTEMI 07/14/15-cardiac catheterization: diffuse [place] vessel disease, BANEGAS to LAD graft patent, saphenous vein graft to circumflex total chronic occlusion, LAD and obtuse marginal stents had noncritical stent restenosis-medical management advised" Depression (Chronic) Dyslipidemia (Chronic) CVA (cerebral vascular accident) (Chronic) Atrial fibrillation (Chronic) Diabetes mellitus, type II (Chronic) CKD (chronic kidney disease), stage III (Chronic) Chronic diastolic CHF (congestive heart failure) (Chronic) Prostate cancer (Chronic) Pleural effusion, right (Chronic) PUD (peptic ulcer disease) (Chronic) "EGD 06/2017- Normal esophagus, Gastritis, Normal examined duodenum. 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 Current Living Situation Comment: [facility] current occupational status: retired Other Information That Helps Us Care for You: No Feels Safe at Home: Yes Safety Concerns: Feels Safe At This Time Smoking Status: Unknown if ever smoked Hx Alcohol Use: No Hx Substance Use: No Review of Systems Review of Systems: All systems reviewed & are unremarkable except as noted in HPI & below and Unobtainable due to mental health condition Physical Exam Physical Exam: General: no acute distress and stated age Head: normocephalic, no masses, lesions, tenderness or abnormalities Eyes: conjunctiva are pink and non-injected, sclera clear Neck: supple, no adenopathy, no bruits, normal jugular venous pulse, no hepatojugular reflux Chest: normal shape and normal respiratory effort Lungs: clear to auscultation and percussion Cardiac Exam: - regular rate & rhythm, no murmurs gallops or rubs - normal S1, normal S2 Pulses: 2(+) throughout Abdomen: abdomen soft, non-tender, no abnormal masses and no hepatosplenomegaly Musculoskeletal: no gait disturbance, no joint inflammation, no deforming arthritis Extremities: no edema and no cyanosis Neuro: grossly normal exam Results & Data Vital Signs (Past 12 Hours) Vital Signs Temp Pulse Resp BP Pulse Ox 01/21/19 11:36 36.5 C 78 16 99/64 L 97 01/21/19 07:28 36.5 C 84 20 127/76 92 01/21/19 06:23 86 123/77 99 01/21/19 04:49 36.8 C 84 18 112/67 94 Laboratory Results Laboratory Results - last 24 hr 01/20/19 01/21/19 01/21/19 14:38 06:40 06:40 WBC 5.66 RBC 3.99 L Hgb 11.7 L Hct 35.2 L MCV 88.2 MCH 29.3 MCHC 33.2 RDW Std Deviation 51.4 H RDW Coeff of Mick 16.0 H Plt Count 131 MPV 8.7 Sodium 146 H Potassium 4.5 Chloride 113 H Carbon Dioxide 29 Anion Gap 4.0 BUN 23 H Creatinine 1.57 H Est Cr Clr Drug Dosing 29.5 Est GFR ( Amer) 44.9 Est GFR (Non-Af Amer) 38.8 BUN/Creatinine Ratio 14.3 Glucose 118 H Calcium 8.4 L Magnesium 2.2 TSH 2.150 Pleural Fluid Source LEFT LUNG Pleural Color GRUPO Pleural Appearance CLOUDY Pleural WBC 377 [place] RBC [address] Pleural Polynuclear % 4.1 Pleural Mononuclear % 95.9 Pleural Total Protein 3.3 Pleural LDH 176 Pleural Glucose 119 Pleural Amylase 41 Medications Administered Current Inpatient Medications Acetaminophen (Tylenol) 650 mg PO Q4H PRN PRN Reason: Pain or Fever Stop: 02/18/19 14:51 Aspirin (Ecotrin Ectab) 162 mg PO QDB [facility] Stop: 02/19/19 07:29 Last Admin: 01/21/19 08:00 Dose: 162 mg Documented by: Cyanocobalamin (Vitamin B-12) 1,000 mcg PO QDB [facility] Stop: 02/19/19 07:29 Last Admin: 01/21/19 07:59 Dose: 1,000 mcg Documented by: Docusate Sodium (Colace) 100 mg PO BID [facility] Stop: 02/18/19 20:59 Last Admin: 01/21/19 08:00 Dose: 100 mg Documented by: Furosemide (Lasix) 20 mg PO QAM [facility] Stop: 02/19/19 08:59 Last Admin: 01/21/19 08:01 Dose: 20 mg Documented by: Heparin Sodium (Porcine) (Heparin Sodium (Porcine)) 5,000 units SQ Q12 [facility] Stop: 02/20/19 08:59 Last Admin: 08/15/19 07:56 Dose: 5,000 units Documented by: Mirabegron (Myrbetriq Er) 50 mg PO DAILY [facility] Stop: 02/19/19 08:59 Last Admin: 01/21/19 07:59 Dose: 50 mg Documented by: Multivitamins/Minerals (Multivitamin W/ Minerals Tab) 1 tab PO DAILY [facility] Stop: 02/19/19 08:59 Last Admin: 01/21/19 08:00 Dose: 1 tab Documented by: Nitroglycerin (Nitrostat) 0.4 mg SL PRN PRN PRN Reason: Chest Pain Stop: 02/18/19 14:51 Ondansetron HCl (Zofran) 4 mg IV Q6H PRN PRN Reason: Nausea Stop: 02/18/19 14:51 Pantoprazole Sodium (Protonix) 40 mg PO BID [facility] Stop: 02/18/19 20:59 Last Admin: 01/21/19 08:00 Dose: 40 mg Documented by: Polyethylene Glycol (Miralax Powder Packet) 17 gm PO DAILY PRN PRN Reason: Constipation Stop: 02/18/19 14:51 Potassium Chloride (Klor-Con M10) 10 meq PO BID [facility] Stop: 02/18/19 20:59 Last Admin: 01/21/19 07:58 Dose: 10 meq Documented by:
--- NOTE | 2019-01-21 20:43 | Progress Note ---
DATE: 01/21/2019 Mr. Mcknight is stable this morning. He has 96% saturation on room air. His x-ray yesterday looked much better after we drained off the fluid. His LDH was 176 with a protein of 3.3. Glucose is 119. Cytology is still pending. There is no growth on this pleural fluid. ASSESSMENT AND PLAN: Status post thoracentesis for about 1000 mL of right pleural effusion. This is a borderline exudate and the cytology is pending, but it does not appear to be infected. At this point, I would continue to watch him and check x-rays periodically. He looks better today.
[2019-01-22] MEDS: ASPIRIN 81 MG ECTAB PO SCH (08:34)
[2019-01-22] MEDS: HEPARIN SOD 5,000 UNIT/0.5 ML VIAL SQ SCH ×2 (08:34→20:19)
[2019-01-22] MEDS: FUROSEMIDE 20 MG TAB PO SCH (08:35)
[2019-01-22] MEDS: MIRABEGRON ER 25 MG TAB PO SCH (08:36)
[2019-01-22] MEDS: PANTOprazole 40 MG TAB PO SCH ×2 (08:36→20:21)
[2019-01-22] MEDS: CEROVITE ADV FORMULA TAB PO SCH (08:36)
[2019-01-22] MEDS: DOCUSATE SODIUM 100 MG CAP PO SCH ×2 (08:36→20:21)
[2019-01-22] MEDS: CYANOCOBALAMIN 500 MCG TABLET (VITAMIN B-12) PO SCH (08:37)
[2019-01-22] MEDS: POTASSIUM CHLORIDE 10 MEQ TABCR PO SCH ×2 (08:37→20:19)
[2019-01-22 10:21] LABS: BUN Creatinine Ratio 14.5 (10-20); Calcium 8.3 mg/dl (8.5-10.1); Creatinine Clr Calc Pharmacy 31.4 ml/min; Est GFR (African American) 46.7; Est GFR (Non-African American) 40.3; Potassium 4.1 mmol/L (3.5-5.1)
--- NOTE | 2019-01-22 10:38 | Cardiology Progress Note ---
Date of Service January 22, 2019 Assessment & Plan (1) Pleural effusion, left: Likely due to diastolic dysfunction. Has a history of past pleural effusion, most recent thoracentesis performed at [facility] 3 years ago. Echocardiogram performed at [facility] 12/31/2018 revealed LVEF within normal limits within the range of 60-65% with mild concentric left ventricular hypertrophy and appropriately functioning transcatheter aortic valve prosthesis. The patient had been treated with IV diuretics during his stay and December, and was ultimately discharged on his prior to hospital dose of furosemide 20 mg by mouth daily which is his longtime standing dose. His kidney function is stable with a creatinine of around 1.5 today, has been as high as 2 on his last admission. I think it is reasonable to Intensify his outpatient diuretic regimen from furosemide 20 mg by mouth daily to torsemide 10 mg by mouth daily. Will need to follow his electrolytes and kidney function as an outpatient especially to ensure his sodium potassium remained stable. Await for cytology from the left pleural fluid with the patient having undergone thoracentesis on 01/21/2016 using 1000 mL's of fluid (2) S/P TAVR (transcatheter aortic valve replacement): Stable function on echocardiogram last month, December, (3) Hx of CABG: Stable CAD (4) Atrial fibrillation: Rate controlled, 3-second pause is acceptable. He has chronic atrial fibrillation he is not on anticoagulation as an outpatient due to past problems with adherence. Subjective Chief complaint: Follow-up left pleural effusion Subjective: Patient seen and examined. Conversant. No complaints. Telemetry reveals atrial flutter for the most part ventricular rates are in the 70 be per minute range, a 3-second pause was noted this morning at 5:07 AM. Review of Systems Review of Systems: All systems reviewed & are unremarkable except as noted in HPI & below Physical Exam Physical Exam: Temp Pulse Resp BP Pulse Ox 36.5 C 86 18 120/77 92 01/22/19 04:00 01/22/19 04:00 01/22/19 04:00 01/22/19 04:00 01/22/19 04:00 Constitutional: WD/WN, vitals as above Respiratory: Mildly decreased breath sounds bilaterally at the bases Cardiovascular: Rate/Rhythm: + irregularly irregular Heart Sounds: no murmur and no cardiac rub Vessels: no JVD Extremities: no edema Gastrointestinal (Abdomen): normal bowel sounds, soft, nontender, no hepatosplenomegaly Results & Data Vital Signs (Past 12 Hours) Vital Signs Temp Pulse Resp BP Pulse Ox 01/22/19 04:00 36.5 C 86 18 120/77 92 01/21/19 23:00 36.3 C L 87 20 119/66 95
--- NOTE | 2019-01-22 12:06 | Progress Note ---
DATE: 01/22/2019 The patient was seen on 01/22/2019. He continued to do well on room air with saturations above 90%. He is not short of breath. He is confused. His pleural effusion is borderline being exudative; however, the cytology is negative for cancer. I will sign off now. Please call if needed.
[2019-01-22] MEDS: METOPROLOL TARTRATE 25 MG TAB PO SCH ×2 (13:28→20:19)
--- NOTE | 2019-01-23 04:27 | Hospitalist Progress Note ---
Date of Service January 23, 2019 Subjective Made aware by RN of bradycardic episodes in early a.m. Cardiac rate 20-30s. 4.1-second pause noted around 4:17 AM as per RN. Patient sleeping during bradycardic episodes. AP Episodic bradycardia/sinus pauses Hold beta-iris for now. We relay to AM provider. Results & Data Vital Signs (Past 12 Hours) Vital Signs Temp Pulse Pulse Pulse Resp BP BP 01/23/19 04:20 36.9 C 87 14 135/61 01/23/19 03:20 76 16 119/75 01/23/19 00:00 60 01/22/19 23:00 36.7 C 70 20 114/71 01/22/19 19:00 36.5 C 71 20 104/54 L Pulse Ox 01/23/19 04:20 93 01/23/19 03:20 94 01/23/19 00:00 01/22/19 23:00 94 01/22/19 19:00 97
[2019-01-23] MEDS: TORSEMIDE 10 MG TAB PO SCH (08:45)
[2019-01-23] MEDS: MIRABEGRON ER 25 MG TAB PO SCH (08:46)
[2019-01-23] MEDS: CYANOCOBALAMIN 500 MCG TABLET (VITAMIN B-12) PO SCH (08:46)
[2019-01-23] MEDS: ASPIRIN 81 MG ECTAB PO SCH (08:46)
[2019-01-23] MEDS: HEPARIN SOD 5,000 UNIT/0.5 ML VIAL SQ SCH ×2 (08:46→20:44)
[2019-01-23] MEDS: DOCUSATE SODIUM 100 MG CAP PO SCH ×2 (08:46→20:43)
[2019-01-23] MEDS: CEROVITE ADV FORMULA TAB PO SCH (08:46)
[2019-01-23] MEDS: POTASSIUM CHLORIDE 10 MEQ TABCR PO SCH ×2 (08:46→20:44)
[2019-01-23] MEDS: PANTOprazole 40 MG TAB PO SCH ×2 (08:46→20:44)
--- NOTE | 2019-01-23 09:15 | Cardiology Progress Note ---
Date of Service January 23, 2019 Assessment & Plan (1) Pleural effusion, left: Recurrent left pleural effusion. Likely due to diastolic dysfunction. Preserved LVEF noted on echocardiogram performed during admission last month. Cytology report of pleural fluid is reassuring. As noted in my progress note yesterday, 01/22/2019, will transition him from his chronic prior to hospital dose of furosemide 20 mg daily to torsemide 10 mg daily and monitor his kidney function. Basic metabolic panel has been requested to be performed tomorrow morning 01/24/2019. (2) Atrial fibrillation: Patient has a long-standing history of chronic atrial fibrillation. He is not on anticoagulation due to his cognitive impairment, fall risk. He is maintained in a personal m[facility]. He is asymptomatic from atrial fibrillation standpoint. Ventricular rates at rest have ranged anywhere from 70 to 150 bpm, with an average ventricular rate this morning in the 110's be per minute range. Pauses have been noted during sleep but this admission as well as during his tracie or admission in December. This is a chronic issue, that is been managed conservatively for years. I am going to resume his metoprolol tartrate with dose of 12.5 mg 1 time per day in the morning to help control his daytime heart rates. Once again there is been no symptomatic bradycardia during waking hours and I think it is okay for him to have occasional 3 to 4-second pauses during sleep. DVT prophylaxis: Continue knee-high sequential pneumatic compression devices and subcutaneous heparin. Disposition: Increase activity as tolerated, ultimately plan for transition back to personal mcfp. Subjective CC: follow up atrial fibrillation, pleural effusion Subjective: Patient comfortable and conversant. Cognitive impairment demonstrated, similar to his recent baseline mental status. Currently, atrial fibrillation with a rate of 113 bpm is noted on telemetry. His a.m. metoprolol had been held due to relative bradycardia down to the 30 bpm range briefly overnight during hours of sleep with a 4.2-second pause noted this morning at 4:13 AM. Review of Systems Review of Systems: All systems reviewed & are unremarkable except as noted in HPI & below Physical Exam Physical Exam: Temp Pulse Resp BP Pulse Ox 36.6 C 96 H 18 127/80 91 01/23/19 07:30 01/23/19 07:30 01/23/19 07:30 01/23/19 07:30 01/23/19 07:30 Constitutional: average body habitus Respiratory: Mildly decreased breath sounds at the bases, no rales rhonchi or wheezing Cardiovascular: Rate/Rhythm: + irregularly irregular Heart Sounds: normal S1 and normal S2; no murmur and no cardiac rub Vessels: no JVD Extremities: no edema Gastrointestinal (Abdomen): normal bowel sounds, soft, nontender, no hepatosplenomegaly Skin: no rashes, warm and dry Neurologic: Follows commands, conversant, no focal motor deficit, cognitive impairment demonstrated Results & Data Vital Signs (Past 12 Hours) Vital Signs Temp Pulse Pulse Pulse Resp BP BP 01/23/19 07:30 36.6 C 96 H 18 127/80 01/23/19 04:20 36.9 C 87 14 135/61 01/23/19 03:20 76 16 119/75 01/23/19 00:00 60 01/22/19 23:00 36.7 C 70 20 114/71 Pulse Ox 01/23/19 07:30 91 01/23/19 04:20 93 01/23/19 03:20 94 01/23/19 00:00 01/22/19 23:00 94 Diagnostic Findings Pleural fluid cytology yielded from thoracentesis of the left pleural effusion, the final report describes many red blood cells with no malignant cells seen. Medications Administered Current Inpatient Medications Acetaminophen (Tylenol) 650 mg PO Q4H PRN PRN Reason: Pain or Fever Stop: 02/18/19 14:51 Aspirin (Ecotrin Ectab) 162 mg PO QDB [facility] Stop: 02/19/19 07:29 Last Admin: 01/23/19 08:46 Dose: 162 mg Documented by: Cyanocobalamin (Vitamin B-12) 1,000 mcg PO QDB [facility] Stop: 02/19/19 07:29 Last Admin: 01/23/19 08:46 Dose: 1,000 mcg Documented by: Docusate Sodium (Colace) 100 mg PO BID [facility] Stop: 02/18/19 20:59 Last Admin: 01/23/19 08:46 Dose: 100 mg Documented by: Heparin Sodium (Porcine) (Heparin Sodium (Porcine)) 5,000 units SQ Q12 [facility] Stop: 02/20/19 08:59 Last Admin: 01/23/19 08:46 Dose: 5,000 units Documented by: Metoprolol Tartrate (Lopressor) 12.5 mg PO QAM [facility] Stop: 02/22/19 09:14 Mirabegron (Myrbetriq Er) 50 mg PO DAILY [facility] Stop: 02/19/19 08:59 Last Admin: 01/23/19 08:46 Dose: 50 mg Documented by: Multivitamins/Minerals (Multivitamin W/ Minerals Tab) 1 tab PO DAILY [facility] Stop: 02/19/19 08:59 Last Admin: 01/23/19 08:46 Dose: 1 tab Documented by: Nitroglycerin (Nitrostat) 0.4 mg SL PRN PRN PRN Reason: Chest Pain Stop: 02/18/19 14:51 Ondansetron HCl (Zofran) 4 mg IV Q6H PRN PRN Reason: Nausea Stop: 02/18/19 14:51 Pantoprazole Sodium (Protonix) 40 mg PO BID [facility] Stop: 02/18/19 20:59 Last Admin: 01/23/19 08:46 Dose: 40 mg Documented by: Polyethylene Glycol (Miralax Powder Packet) 17 gm PO DAILY PRN PRN Reason: Constipation Stop: 02/18/19 14:51 Potassium Chloride (Klor-Con M10) 10 meq PO BID [facility] Stop: 02/18/19 20:59 Last Admin: 01/23/19 08:46 Dose: 10 meq Documented by: Torsemide (Demadex) 10 mg PO QAM [facility] Stop: 02/22/19 08:59 Last Admin: 01/23/19 08:45 Dose: 10 mg Documented by:
[2019-01-23] MEDS: METOPROLOL TARTRATE 25 MG TAB PO SCH (09:37)
--- NOTE | 2019-01-23 17:37 | Hospitalist Progress Note ---
Date of Service January 23, 2019 Assessment & Plan (1) Acute respiratory failure with hypoxia: (2) Pleural effusion, left: Per admitting service notes This is an 88yo M [facility] resident with a PMH of chronic diastolic heart failure, h/o CVA, dementia, chronic atrial fibrillation (poor candidate for anticoagulation due to frequent falls), s/p TAVR (2016), CAD (s/p CABG and stent), DM II and other medical problems listed below who presents with shortness of breath starting yesterday and was found to have increasing moderate to large left pleural effusion. -SOB since yesterday at [facility] with acute hypoxia in mid-80s. Now 98% on 2L [place]. Does not require home O2 -CXR with increasing moderate to large left pleural effusion with extensive left lung atelectasis, loculated small right pleural effusion and right basilar atelectasis and cardiomegaly with decreasing volume overload -No leukocytosis. Electrolytes at baseline. Creatinine at upper limit of baseline at 1.82. Troponin negative. EKG with chronic A Fib, no changes -Has [place] [facility] [place] in setting of chronic diastolic heart failure, h/o TAVR in 2016 -2D echo from December 2017 with preserved EF of 60 to 65%, mild LVH and evidence of prosthetic aortic valve -Discussed possible thoracentesis with son, who is medical POA. He is okay with intervention since patient is hypoxic, anxious about decreased air movement -Routine thoracic surgery consult placed with chest ultrasound ordered for lung markings -Continue home lasix, duonebs PRN Status post thoracentesis Chest x-ray: Improvement of left pleural effusion weaned off O2 supplement Continue Lasix p.o. Appreciate thoracic surgery service recommendations Continue to monitor PT and OT evaluation (3) Chronic diastolic CHF (congestive heart failure): Appears euvolemic on exam -CXR with evidence of pleural effusion but no vascular congestion s/p Thoracentesis -- euvolemic -Continue oral lasix dose (4) Atrial fibrillation: Chronic A fib -Not on anticoagulation due to history of frequent falls (+) sinus pauses and episodes of bradycardia HOLD Metoprolol XL consulted Cardiology service Metoprolol changed to tartrate 12.5mg po BID monitor in Tele (5) CKD (chronic kidney disease), stage III: Cr 1.8, which is upper limit of normal for patient Within baseline range (6) S/P TAVR (transcatheter aortic valve replacement): 2016 (7) Diabetes mellitus, type II: A1c of 5.7 11/25 -Metformin and lantus discontinued during previous admission, goal a1c <7 for 88yo patient -Monitor BSG (8) Hypertension: Normotensive (9) CAD (coronary artery disease): (10) Anemia: Hgb 11.6 (baseline ~11-12) -Monitor with daily CBC (11) Dyslipidemia: Statin intolerant (12) Overactive bladder: Continue Myrbetriq -Bladder scan PRN DVT Ppx: SQ heparin Code status: DNR per discussion with son/POA PCP: Tat[facility]ana [facility] medically [facility] Subjective ff up for pleural effusion seen resting in bed, comfortable states breathing is fine no chest pain, palpitaitons, dizziness no other symptoms Review of Systems Review of Systems: All systems reviewed & are unremarkable except as noted in HPI & below Physical Exam Physical Exam: General- not oriented, not in distress, speaks in sentences with no effort or accessory muscle use Eyes- anicteric Neck- no JVD Lungs- clear BS BL Heart- normal rate, regular rhythm; no murmurs Abdomen- normal bowel sounds, nondistended, soft, nontender Extremities- no pretibial edema, no calf tenderness Neuro- alert, not orientedd, no gross focal neurologic deficits Skin- warm & dry Results & Data Vital Signs (Past 12 Hours) Vital Signs Temp Pulse Resp BP BP Pulse Ox 01/23/19 15:30 36.6 C 100 H 20 106/66 95 01/23/19 11:31 36.8 C 54 L 20 117/73 95 01/23/19 09:12 129 H 93/60 L 01/23/19 07:30 36.6 C 96 H 18 127/80 91
[2019-01-23] MEDS ORDERED: NITROGLYCERIN SL 0.4 MG/TAB TAB SL STA (20:34)
[2019-01-23 21:00] LABS: Basophils # (auto) 0.01 K/uL (0-0.2); Basophils % (auto) 0.2 %; Eosinophils # (auto) 0.32 K/uL (0-0.5); Eosinophils % (auto) 5.3 %; Hemoglobin 11.9 g/dL (14.0-18.0); Lymphocytes # (auto) 0.95 K/uL (1.2-3.4); Lymphocytes % (auto) 15.9 %; Mean Corpuscular Hemoglobin 29.8 pg (25-34); Mean Corpuscular Volume 87.5 fL (80-100); Mean Platelet Volume 8.6 fL (7.4-10.4); Monocytes # (auto) 0.59 K/uL (0.11-0.59); Monocytes % (auto) 9.8 %; Neutrophils # (auto) 4.12 K/uL (1.4-6.5); Neutrophils % (auto) 68.8 %; Platelet Count 148 K/uL (130-400); RDW Coefficient of Variation 15.8 % (11.5-14.5); RDW Standard Deviation 50.8 fL (36.4-46.3); White Blood Count 5.99 K/uL (4.8-10.8)
[2019-01-23 21:11] LABS: Partial Thromboplastin Ratio 1.2; Partial Thromboplastin Time 32.6 Seconds (21.0-31.0)
[2019-01-23 21:22] LABS: Alanine Aminotransferase 14 U/L (12-78); Albumin Level 2.7 gm/dl (3.4-5.0); Aspartate Aminotransferase 17 U/L (15-37); BUN Creatinine Ratio 14.3 (10-20); Blood Urea Nitrogen 23 mg/dl (7-18); Calcium 8.3 mg/dl (8.5-10.1); Carbon Dioxide 28 mmol/L (21-32); Chloride 109 mmol/L (98-107); Creatinine Clr Calc Pharmacy 29.5 ml/min; Est GFR (African American) 43.3; Est GFR (Non-African American) 37.3; Glucose 112 mg/dl (70-99); Lipase 219 U/L (73-393); Magnesium 2.1 mg/dl (1.8-2.4); Potassium 5.1 mmol/L (3.5-5.1); Sodium 141 mmol/L (136-145)
[2019-01-23 21:26] LABS: Albumin Globulin Ratio 0.7 (0.9-2); Alkaline Phosphatase 100 U/L (45-117); Bilirubin,Total 0.5 mg/dl (0.2-1); Globulin 3.7 gm/dl (2.5-4.0); Total Protein 6.4 gm/dl (6.4-8.2); Troponin I < 0.015 ng/ml (0-0.045)
--- NOTE | 2019-01-23 21:41 | XRay Report ---
XR chest 1V portable CLINICAL HISTORY: Atypical chest pain and tachypnea COMPARISON STUDY: 01/20/2019 FINDINGS: There are postsurgical changes of a midline sternotomy. The heart is enlarged. There is aor tic tortuosity/ectasia. There is radiographic evidence of congestive failure/fluid overload with bila teral pleural effusions.[ IMPRESSION: Cardiomegaly and radiographic evidence of congestive failure/fluid overload. Persistent b ilateral pleural effusions. Electronically signed by: Kevin Ty M.D. 01/23/2019 9:39 PM
[2019-01-23] MEDS ORDERED: FUROSEMIDE 60 MG in SYRINGE 0 ML IV STA (21:45)
[2019-01-24 07:07] LABS: BUN Creatinine Ratio 14.1 (10-20); Calcium 8.8 mg/dl (8.5-10.1); Creatinine Clr Calc Pharmacy 28.8 ml/min; Est GFR (Non-African American) 36.3; Potassium 4.1 mmol/L (3.5-5.1)
[2019-01-24] MEDS: HEPARIN SOD 5,000 UNIT/0.5 ML VIAL SQ SCH ×2 (08:12→20:13)
[2019-01-24] MEDS: DOCUSATE SODIUM 100 MG CAP PO SCH ×2 (08:12→20:14)
[2019-01-24] MEDS: CYANOCOBALAMIN 500 MCG TABLET (VITAMIN B-12) PO SCH (08:12)
[2019-01-24] MEDS: CEROVITE ADV FORMULA TAB PO SCH (08:12)
[2019-01-24] MEDS: MIRABEGRON ER 25 MG TAB PO SCH (08:12)
[2019-01-24] MEDS: PANTOprazole 40 MG TAB PO SCH ×2 (08:12→20:14)
[2019-01-24] MEDS: METOPROLOL TARTRATE 25 MG TAB PO SCH (08:13)
[2019-01-24] MEDS: POTASSIUM CHLORIDE 10 MEQ TABCR PO SCH ×2 (08:13→20:13)
[2019-01-24] MEDS: TORSEMIDE 10 MG TAB PO SCH (08:13)
[2019-01-24] MEDS: ASPIRIN 81 MG ECTAB PO SCH (08:13)
--- NOTE | 2019-01-24 10:46 | Cardiology Progress Note ---
Date of Service January 24, 2019 Assessment & Plan (1) Chronic diastolic CHF (congestive heart failure): Chest x-ray performed overnight was suggestive of interstitial edema, patient received 60 mg of furosemide. His electrolytes and creatinine remained stable with creatinine in the range of 1.6 today and he received his oral dose of torsemide 10 mg this morning. The patient is status post thoracentesis of a large left pleural effusion yielding 1000 mL of pleural fluid earlier this hospital stay. At this time I recommend holding off on his oral dose of torsemide 10 mg tomorrow, and will await his chemistry panel, as long as his kidney function remains stable, will increase his torsemide to 20 mg tomorrow. The patient does not recollect having any symptoms last night and he complains of no anginal symptoms at present. He has a cognitive impairment, this is been a chronic issue noted as an outpatient, and that is why he is in the [facility] as compared to living independently (2) Atrial fibrillation: Noted bradycardia during hours of sleep, rates however are elevated with exertion and with eating. Metoprolol started back yesterday with metoprolol tartrate 12.5 mg daily. The patient has a long-standing history of similar heart rates, I think conservative therapy is best for now as his tachycardia as well as bradycardia have rendered him no symptoms, and the previously noted bradycardia and pauses have occurred during sleep. Subjective Chief complaint: Follow-up of pleural effusion, chronic coronary artery disease, history of CABG, history of transcatheter aortic valve replacement Subjective: Patient seen and examined. He is sitting up in bed and is comfortable. At approximately 10 PM last night 01/23/2019, the on-call hospitalist provider, Dr. Fisher, have been informed that the patient had an episode of chest discomfort. EKG revealed atrial fibrillation with controlled ventricular rate in no acute ischemic changes, troponin was negative x1. He ult imately received 60 mg of IV furosemide. The patient does not recollect this when I discussed it with him. He has no complaints other than he is looking forward to going back to his [facility]. Telemetry reveals ongoing atrial fibrillation for the most part his rate ranges anywhere from 70 to the 113 bpm range. Faster with exertion to the bathroom. No prolonged bradycardia or pauses overnight last night. Review of Systems Review of Systems: All systems reviewed & are unremarkable except as noted in HPI & below Physical Exam Physical Exam: Temp Pulse Resp BP Pulse Ox 36.6 C 77 18 109/65 93 01/24/19 07:04 01/24/19 07:04 01/24/19 07:04 01/24/19 07:04 01/24/19 07:04 Constitutional: WD/WN, vitals as above Respiratory: normal respiratory effort, lungs clear to auscultation Cardiovascular: Rate/Rhythm: + irregularly irregular Heart Sounds: no murmur Vessels: no JVD Extremities: no edema Gastrointestinal (Abdomen): normal bowel sounds, soft, nontender, no hepatosplenomegaly Neurologic: Cognitive impairment with patient being a poor historian, but he follows commands, and has no focal motor deficit Results & Data Vital Signs (Past 12 Hours) Vital Signs Temp Pulse Pulse Pulse Resp BP Pulse Ox 01/24/19 07:04 36.6 C 77 18 109/65 93 01/24/19 04:00 36.7 C 96 H 20 126/79 95 01/23/19 23:37 95 H
--- NOTE | 2019-01-24 13:05 | Hospitalist Progress Note ---
Date of Service January 24, 2019 Assessment & Plan (1) Acute respiratory failure with hypoxia: (2) Pleural effusion, left: Per admitting service notes This is an 88yo M [facility] resident with a PMH of chronic diastolic heart failure, h/o CVA, dementia, chronic atrial fibrillation (poor candidate for anticoagulation due to frequent falls), s/p TAVR (2016), CAD (s/p CABG and stent), DM II and other medical problems listed below who presents with shortness of breath starting yesterday and was found to have increasing moderate to large left pleural effusion. -SOB since yesterday at [facility] with acute hypoxia in mid-80s. Now 98% on 2L [place]. Does not require home O2 -CXR with increasing moderate to large left pleural effusion with extensive left lung atelectasis, loculated small right pleural effusion and right basilar atelectasis and cardiomegaly with decreasing volume overload -No leukocytosis. Electrolytes at baseline. Creatinine at upper limit of baseline at 1.82. Troponin negative. EKG with chronic A Fib, no changes -Has required thoracentesis at [facility] [place] in the past in setting of chronic diastolic heart failure, h/o TAVR in 2016 -2D echo from December 2017 with preserved EF of 60 to 65%, mild LVH and evidence of prosthetic aortic valve -Discussed possible thoracentesis with son, who is medical POA. He is okay with intervention since patient is hypoxic, anxious about decreased air movement -Routine thoracic surgery consult placed with chest ultrasound ordered for lung markings -Continue home lasix, duonebs PRN Status post thoracentesis Chest x-ray: Improvement of left pleural effusion weaned off O2 supplement Continue Lasix p.o. Appreciate thoracic surgery service recommendations Continue to monitor PT and OT evaluation (3) Chronic diastolic CHF (congestive heart failure): Appears euvolemic on exam -CXR with evidence of pleural effusion but no vascular congestion s/p Thoracentesis -- euvolemic --Continue oral lasix dose (4) Atrial fibrillation: Chronic A fib -Not on anticoagulation due to history of frequent falls (+) sinus pauses and episodes of bradycardia HOLD Metoprolol XL consulted Cardiology service Metoprolol changed to tartrate 12.5mg po BID monitor in Tele (5) CKD (chronic kidney disease), stage III: Cr 1.8, which is upper limit of normal for patient Within baseline range (6) S/P TAVR (transcatheter aortic valve replacement): 2016 (7) Diabetes mellitus, type II: A1c of 5.7 11/25 -Metformin and lantus discontinued during previous admission, goal a1c <7 for 88yo patient -Monitor BSG (8) Hypertension: Normotensive (9) CAD (coronary artery disease): (10) Anemia: Hgb 11.6 (baseline ~11-12) -Monitor with daily CBC (11) Dyslipidemia: Statin intolerant (12) Overactive bladder: Continue Myrbetriq -Bladder scan PRN DVT Ppx: SQ heparin Code status: DNR per discussion with son/POA PCP: Tatyana Dispo: Return to the [facility] when medically stable Subjective ff up for pleural effusion seen resting in bed, comfortable pleasant confused states he feels fine overall denies dyspnea, chest urbio, palpitations, dizziness no other symptoms Review of Systems Review of Systems: All systems reviewed & are unremarkable except as noted in HPI & below Physical Exam Physical Exam: General- oriented x 1, not in distress, speaks in sentences with no effort or accessory muscle use Eyes- anicteric Neck- no JVD Lungs- clear BS BL, no rales, no wheezing Heart- normal rate, regular rhythm; no murmurs Abdomen- normal bowel sounds, nondistended, soft, nontender Extremities- no pretibial edema, no calf tenderness Neuro- alert, oriented x 1; no gross focal neurologic deficits Skin- warm & dry Results & Data Vital Signs (Past 12 Hours) Vital Signs Temp Pulse Pulse Resp BP Pulse Ox 01/24/19 12:00 36.7 C 100 H 18 118/70 94 01/24/19 07:04 36.6 C 77 18 109/65 93 01/24/19 04:00 36.7 C 96 H 20 126/79 95 Laboratory Results Laboratory Results - last 24 hr 01/23/19 01/23/19 01/23/19 20:46 20:46 20:46 WBC 5.99 RBC 4.00 L Hgb 11.9 L Hct 35.0 L MCV 87.5 MCH 29.8 MCHC 34.0 RDW Std Deviation 50.8 H RDW Coeff of Mick 15.8 H Plt Count 148 MPV 8.6 Immature Gran % (Auto) 0.0 Neut % (Auto) 68.8 Lymph % (Auto) 15.9 Norton % (Auto) 9.8 Eos % (Auto) 5.3 Baso % (Auto) 0.2 Immature Gran # (Auto) 0.00 Neut # (Auto) 4.12 Lymph # (Auto) 0.95 L Norton # (Auto) 0.59 Eos # (Auto) 0.32 Baso # (Auto) 0.01 APTT 32.6 H PTT Ratio 1.2 Sodium 141 Potassium 5.1 D Chloride 109 H Carbon Dioxide 28 Anion Gap 5.0 BUN 23 H Creatinine 1.62 H Est Cr Clr Drug Dosing 29.5 Est GFR ( Amer) 43.3 Est GFR (Non-Af Amer) 37.3 BUN/Creatinine Ratio 14.3 Glucose 112 H Calcium 8.3 L Magnesium 2.1 Total Bilirubin 0.5 AST 17 ALT 14 Alkaline Phosphatase 100 Troponin I < 0.015 Total Protein 6.4 Albumin 2.7 L Globulin 3.7 Albumin/Globulin Ratio 0.7 L Lipase 219 01/24/19 05:57 WBC RBC Hgb Hct MCV MCH MCHC RDW Std Deviation RDW Coeff of Mick Plt Count MPV Immature Gran % (Auto) Neut % (Auto) Lymph % (Auto) Norton % (Auto) Eos % (Auto) Baso % (Auto) Immature Gran # (Auto) Neut # (Auto) Lymph # (Auto) Norton # (Auto) Eos # (Auto) Baso # (Auto) APTT PTT Ratio Sodium 142 Potassium 4.1 D Chloride 104 Carbon Dioxide 32 Anion Gap 5.0 BUN 23 H Creatinine 1.66 H Est Cr Clr Drug Dosing 28.8 Est GFR ( Amer) 42.0 Est GFR (Non-Af Amer) 36.3 BUN/Creatinine Ratio 14.1 Glucose 114 H Calcium 8.8 Magnesium Total Bilirubin AST ALT Alkaline Phosphatase Troponin I Total Protein Albumin Globulin Albumin/Globulin Ratio Lipase
[2019-01-25 07:15] LABS: BUN Creatinine Ratio 15.1 (10-20); Calcium 8.7 mg/dl (8.5-10.1); Creatinine Clr Calc Pharmacy 29.7 ml/min; Est GFR (African American) 38.4; Est GFR (Non-African American) 33.1; Potassium 4.5 mmol/L (3.5-5.1)
[2019-01-25] MEDS: CYANOCOBALAMIN 500 MCG TABLET (VITAMIN B-12) PO SCH (07:49)
[2019-01-25] MEDS: PANTOprazole 40 MG TAB PO SCH (07:50)
[2019-01-25] MEDS: MIRABEGRON ER 25 MG TAB PO SCH (07:50)
[2019-01-25] MEDS: METOPROLOL TARTRATE 25 MG TAB PO SCH (07:50)
[2019-01-25] MEDS: DOCUSATE SODIUM 100 MG CAP PO SCH (07:50)
[2019-01-25] MEDS: POTASSIUM CHLORIDE 10 MEQ TABCR PO SCH (07:51)
[2019-01-25] MEDS: ASPIRIN 81 MG ECTAB PO SCH (07:51)
[2019-01-25] MEDS: HEPARIN SOD 5,000 UNIT/0.5 ML VIAL SQ SCH (07:51)
[2019-01-25] MEDS: CEROVITE ADV FORMULA TAB PO SCH (07:51)
[2019-01-25] MEDS ORDERED: METOPROLOL SUCC 25MG EXT REL TAB PO SCH (10:15)
--- NOTE | 2019-01-25 10:16 | Cardiology Progress Note ---
Date of Service January 25, 2019 Assessment & Plan (1) Pleural effusion, left: Chronic diastolic heart failure. Creatinine up to 1.79 having received recent IV furosemide 60 mg and torsemide 20 mg PO. Will hold diuretics today, resume torsemide 10 mg 01/26. (2) Atrial fibrillation: Long standing permanent atrial fibrillation. Beta iris held earlier this stay due to concerns of brief bradycardia while sleeping. Ventricular rates elevated off beta iris , however asymptomatic. Resume prior dose of metoprolol succinate 25 mg daily. OK for [facility] back to [facility] facility from cardiac perspective. Subjective Chief Complaint: follow up diastolic heart failure, atrial fibrillation Subjective: Pt comfortable. AF at 115 bpm noted on telemetry. No pauses overnight. Review of Systems Review of Systems: All systems reviewed & are unremarkable except as noted in HPI & below Physical Exam Physical Exam: Temp Pulse Resp BP Pulse Ox 36.1 C L 116 H 20 135/80 91 01/25/19 04:00 01/25/19 08:00 01/25/19 08:00 01/25/19 08:00 01/25/19 04:00 Respiratory: normal respiratory effort; no respiratory distress Auscultation: + diminished lung sounds (mildly decreased BS bilaterally at the bases); no crackles and no rales Cardiovascular: Rate/Rhythm: + irregularly irregular Heart Sounds: no murmur Vessels: no JVD Extremities: no edema Neurologic: moves all extremities; no focal motor deficits Cognitive impairment noted consistent with pt's history of dementia Results & Data Vital Signs (Past 12 Hours) Vital Signs Temp Pulse Pulse Pulse Resp BP BP 01/25/19 08:00 116 H 20 135/80 01/25/19 07:02 137 H 01/25/19 04:00 36.1 C L 115 H 22 104/69 01/24/19 23:45 36.4 C L 86 18 98/67 L Pulse Ox 01/25/19 08:00 01/25/19 07:02 01/25/19 04:00 91 01/24/19 23:45 95 Laboratory Results Comprehensive Metabolic Panel 01/25/19 Range/Units 06:03 Sodium 143 (136-145) mmol/L Potassium 4.5 (3.5-5.1) mmol/L Chloride 106 (98-107) mmol/L Carbon Dioxide 31 (21-32) mmol/L BUN 27 H (7-18) mg/dl Creatinine 1.79 H (0.6-1.4) mg/dl Glucose 114 H (70-99) mg/dl Calcium 8.7 (8.5-10.1) mg/dl Intake and Output 01/24/19 01/25/19 01/25/19 22:59 06:59 14:59 Intake Total 100 / 300 Output Total 125 / 250 Balance -25 / 50 Intake: Oral 100 / 300 Output: Urine 125 / 250 Other: Weight 85.1 kg Current Inpatient Medications Acetaminophen (Tylenol) 650 mg PO Q4H PRN PRN Reason: Pain or Fever Stop: 02/18/19 14:51 Aspirin (Ecotrin Ectab) 162 mg PO QDB [facility] Stop: 02/19/19 07:29 Last Admin: 01/25/19 07:51 Dose: 162 mg Documented by: Cyanocobalamin (Vitamin B-12) 1,000 mcg PO QDB [facility] Stop: 02/19/19 07:29 Last Admin: 01/25/19 07:49 Dose: 1,000 mcg Documented by: Docusate Sodium (Colace) 100 mg PO BID [facility] Stop: 02/18/19 20:59 Last Admin: 01/25/19 07:50 Dose: 100 mg Documented by: Heparin Sodium (Porcine) (Heparin Sodium (Porcine)) 5,000 units SQ Q12 [facility] Stop: 02/20/19 08:59 Last Admin: 01/25/19 07:51 Dose: 5,000 units Documented by: Metoprolol Succinate (Toprol Xl) 25 mg PO QAM [facility] Stop: 02/24/19 10:14 Mirabegron (Myrbetriq Er) 50 mg PO DAILY [facility] Stop: 02/19/19 08:59 Last Admin: 01/25/19 07:50 Dose: 50 mg Documented by: Multivitamins/Minerals (Multivitamin W/ Minerals Tab) 1 tab PO DAILY [facility] Stop: 02/19/19 08:59 Last Admin: 01/25/19 07:51 Dose: 1 tab Documented by: Nitroglycerin (Nitrostat) 0.4 mg SL PRN PRN PRN Reason: Chest Pain Stop: 02/18/19 14:51 Ondansetron HCl (Zofran) 4 mg IV Q6H PRN PRN Reason: Nausea Stop: 02/18/19 14:51 Pantoprazole Sodium (Protonix) 40 mg PO BID [facility] Stop: 02/18/19 20:59 Last Admin: 01/25/19 07:50 Dose: 40 mg Documented by: Polyethylene Glycol (Miralax Powder Packet) 17 gm PO DAILY PRN PRN Reason: Constipation Stop: 02/18/19 14:51 Potassium Chloride (Klor-Con M10) 10 meq PO BID [facility] Stop: 02/18/19 20:59 Last Admin: 01/25/19 07:51 Dose: 10 meq Documented by: Torsemide (Demadex) 10 mg PO QAM [facility] Stop: 02/25/19 08:59
--- NOTE | 2019-01-25 11:34 | Hospitalist Progress Note ---
Date of Service January 25, 2019 Assessment & Plan (1) Acute respiratory failure with hypoxia: (2) Pleural effusion, left: Per admitting service notes This is an 88yo M [facility] resident with a PMH of chronic diastolic heart failure, h/o CVA, dementia, chronic atrial fibrillation (poor candidate for anticoagulation due to frequent falls), s/p TAVR (2016), CAD (s/p CABG and stent), DM II and other medical problems listed below who presents with shortness of breath starting yesterday and was found to have increasing moderate to large left pleural effusion. -SOB since yesterday at [facility] with acute hypoxia in mid-80s. Now 98% on 2L [place]. Does not require home O2 -CXR with increasing moderate to large left pleural effusion with extensive left lung atelectasis, loculated small right pleural effusion and right basilar atelectasis and cardiomegaly with decreasing volume overload -No leukocytosis. Electrolytes at baseline. Creatinine at upper limit of baseline at 1.82. Troponin negative. EKG with chronic A Fib, no changes -Has required thoracentesis at [facility] in the past in setting of chronic diastolic heart failure, h/o TAVR in 2016 -2D echo from December 2017 with preserved EF of 60 to 65%, mild LVH and evidence of prosthetic aortic valve -Discussed possible thoracentesis with son, who is medical POA. He is okay with intervention since patient is hypoxic, anxious about decreased air movement -Routine thoracic surgery consult placed with chest ultrasound ordered for lung markings -Continue home lasix, duonebs PRN Status post thoracentesis Chest x-ray: Improvement of left pleural effusion weaned off O2 supplement Continue Lasix p.o. Appreciate thoracic surgery service recommendations (3) Chronic diastolic CHF (congestive heart failure): Appears euvolemic on exam -CXR with evidence of pleural effusion but no vascular congestion s/p Thoracentesis -- euvolemic -- Lasix PO changed to Torsemide 10mg po daily as per Cardiology recommendations ff up as outpatient (4) Atrial fibrillation: Chronic A fib -Not on anticoagulation due to history of frequent falls (+) sinus pauses and episodes of bradycardia while sleeping consulted Cardiology service continue Metoprolol XL 25mg po daily for now (5) CKD (chronic kidney disease), stage III: Cr 1.79 repeat BMP on ff up with PCP and monitor as outpatient (6) S/P TAVR (transcatheter aortic valve replacement): 2016 (7) Diabetes mellitus, type II: A1c of 5.7 11/25 -Metformin and lantus discontinued during previous admission, goal a1c <7 for 88yo patient -Monitor BSG (8) Hypertension: Normotensive (9) CAD (coronary artery disease): (10) Anemia: hemoglobin stable at 11 (11) Dyslipidemia: Statin intolerant (12) Overactive bladder: Continue Myrbetriq -Bladder scan PRN DVT Ppx: SQ heparin given Code status: DNR per discussion with son/POA PCP: Tatyana Dispo: Return to [facility] today ff up with Dr. Joe in 3-5 days Subjective ff up for pleural effusion seen resting in bed, comfortable states he feels fine overall denies shortness of breath, chest pain, palpitations, dizziness no other symptoms Review of Systems Review of Systems: All systems reviewed & are unremarkable except as noted in HPI & below Physical Exam Physical Exam: General- oriented x 1 , not in distress, speaks in sentences with no effort or accessory muscle use Eyes- anicteric Neck- no JVD Lungs- clear BS BL no rales no wheezes Heart- normal rate, irregularly irregular rhythm; no murmurs Abdomen- normal bowel sounds, nondistended, soft, nontender Extremities- no pretibial edema, no calf tenderness Neuro- alert, oriented x 1; no gross focal neurologic deficits Skin- warm & dry Results & Data Vital Signs (Past 12 Hours) Vital Signs Temp Pulse Pulse Pulse Resp BP BP 01/25/19 08:00 116 H 20 135/80 01/25/19 07:02 137 H 01/25/19 04:00 36.1 C L 115 H 22 104/69 01/24/19 23:45 36.4 C L 86 18 98/67 L Pulse Ox 01/25/19 08:00 01/25/19 07:02 01/25/19 04:00 91 01/24/19 23:45 95
--- NOTE | 2019-01-25 13:12 | Discharge Summary ---
Date of Service January 25, 2019 Admission HPI Per Admitting Provider This is an 88yo M [facility] resident with a PMH of chronic diastolic heart failure, h/o CVA, dementia, chronic atrial fibrillation (poor candidate for anticoagulation due to frequent falls), s/p TAVR (2016), CAD (s/p CABG and stent), DM II and other medical problems listed below who presents with shortness of breath starting yesterday along with generalized weakness. Was found to be hypoxic in the 80s and sent to ED for further evaluation. Does not require home oxygen. ROS is limited due to patient being a poor historian but denies fever, chills, cough or chest pain. Does have history of pleural effusions requiring thoracentesis in the past. Has chronic diastolic heart failure with most recent 2D echo in December 2017 with preserved EF of 60 to 65%, mild LVH and evidence of prosthetic aortic valve. Was recently admitted in December for chest pain and found to have left pleural effusion at that time. Per discussion with son then, intervention like thoracentesis was not taken due to patient remained clinically stable and oxygenating on room air. Today, patient is afebrile and saturating at 98% on 2 L nasal cannula. No leukocytosis. Electrolytes at baseline. Creatinine at upper limit of baseline at 1.82. Troponin negative. Chest x-ray with increasing moderate to large left pleural effusion with extensive left lung atelectasis, loculated small right pleural effusion and right basilar atelectasis and cardiomegaly with decreasing volume overload. EKG with chronic atrial fibrillation, no changes. Discussed goals of care with son, who is POA. States that he is okay with intervention like thoracentesis since patient is short of breath and hypoxic. CODE STATUS is DNR. Admission Exam Per Admitting Provider General Appearance: WD/WN, no apparent distress, cooperative with exam Head: normocephalic, atraumatic Eyes: normal inspection, PERRL, EOMI ENT: hearing grossly normal, pharynx normal (moist mucous membranes) Neck: supple, no JVD, no adenopathy Respiratory/Chest: Clear to auscultation throughout with decreased lung sounds at left base. No wheezes, rales or rhonci appreciated. No respiratory distress or accessory muscle use Cardiovascular: irregular rate & rhythm, no murmur, normal peripheral pulses, no BLE edema Abdomen/GI: normal bowel sounds, soft, non-tender to palpation Extremities/Musculoskelatal: normal inspection, no calf tenderness, normal capillary refill, no pedal edema Neurologic/Psych: alert & oriented x 3, anxious mood, poor insight/judgement Skin: normal color, warm/dry Principal Diagnosis ACUTE HYPOXIC RESPIRATORY FAILURE SECONDARY TO LEFT PLEURAL EFFUSION Discharge Exam General- oriented x 1 , not in distress, speaks in sentences with no effort or accessory muscle use Eyes- anicteric Neck- no JVD Lungs- clear BS BL no rales no wheezes Heart- normal rate, irregularly irregular rhythm; no murmurs Abdomen- normal bowel sounds, nondistended, soft, nontender Extremities- no pretibial edema, no calf tenderness Neuro- alert, oriented x 1; no gross focal neurologic deficits Skin- warm & dry Discharge Data Allergies Allergy/AdvReac Type Severity Reaction Status Date / Time atorvastatin Allergy Severe CVA Verified 12/31/18 02:51 SYMPTOMS paroxetine Allergy Severe CIRCLE BEVELER Verified 12/31/18 02:51 rosuvastatin Allergy Intermediate Myalgias. Verified 12/31/18 02:51 donepezil Allergy Unknown Unknown Verified 12/31/18 02:51 venlafaxine Allergy Unknown Unknown Verified 12/31/18 02:51 lorazepam AdvReac Intermediate Fatigue Verified 12/31/18 02:51 Consultations 01/19/19 12:22 ED Decision to Admit Stat 01/19/19 13:54 Consult Thoracic Surgery Routine 01/19/19 14:52 Consult Case Management - Discharge Planning Routine 01/21/19 08:50 Consult Cardiology Routine Ordered Studies XR chest 1V portable CLINICAL HISTORY: 88 years-old Male presenting with sob. TECHNIQUE: Portable upright AP view of the chest was obtained. COMPARISON: 12/31/2018. FINDINGS: Median sternotomy wires and mediastinal surgical clips. Prosthetic aortic valve. Atherosclerosis of the aortic arch. Cardiac silhouette enlarged. Decreased pulmonary vascular prominence in comparison to prior. Interval increase in the moderate to large left pleural effusion. A loculated small right pleural effusion is also suggested. Poor aeration of the left lung base. Minimal right basilar opacities. No pneumothorax. Degenerative changes of the thoracic spine. Cholecystectomy clips noted. IMPRESSION: 1. Increasing moderate to large left pleural effusion with extensive left lung atelectasis. 2. Loculated small right pleural effusion and right basilar atelectasis. 3. Cardiomegaly with decreasing volume overload. Electronically signed by: Maximo Briones M.D. 01/19/2019 10:53 AM 01/19/19 13:54 US effusion-chest/mediastinum Routine US effusion-chest/mediastinum CLINICAL HISTORY: 88 years-old Male presenting with for possible thoracentesis-- with lung markings. TECHNIQUE: Real-time grayscale ultrasound imaging of the chest was performed for a focused evaluation at the site of clinical concern. COMPARISON: Chest x-ray from 01/19/2019 an ultrasound from 12/31/2018. FINDINGS: Trace simple appearing right pleural effusion with a calculated volume of 84 mL. This was not marked for thoracentesis. Previously this measured 78 mL. Moderate left pleural effusion with limited thin septations, possibly pulmonary ligaments. This has a calculated volume of 564 mL. Previously this measured 475 mL. This was marked for thoracentesis. IMPRESSION: 1. Moderate left and trace right pleural effusions. The left pleural effusion was marked for thoracentesis. XR chest 1V portable CLINICAL HISTORY: Atypical chest pain and tachypnea COMPARISON STUDY: 01/20/2019 FINDINGS: There are postsurgical changes of a midline sternotomy. The heart is enlarged. There is aortic tortuosity/ectasia. There is radiographic evidence of congestive failure/fluid overload with bilateral pleural effusions.[ IMPRESSION: Cardiomegaly and radiographic evidence of congestive failure/fluid overload. Persistent bilateral pleural effusions. Electronically signed by: Kevin Ty M.D. 01/23/2019 9:39 PM Hospital Course (1) Acute respiratory failure with hypoxia: (2) Pleural effusion, left: Per admitting service notes This is an 88yo M [facility] resident with a PMH of chronic diastolic heart failure, h/o CVA, dementia, chronic atrial fibrillation (poor candidate for anticoagulation due to frequent falls), s/p TAVR (2016), CAD (s/p CABG and stent), DM II and other medical problems listed below who presents with shortness of breath starting yesterday and was found to have increasing moderate to large left pleural effusion. -SOB since yesterday at [facility] with acute hypoxia in mid-80s. Now 98% on 2L NC. Does not require home O2 -CXR with increasing moderate to large left pleural effusion with extensive left lung atelectasis, loculated small right pleural effusion and right basilar atelectasis and cardiomegaly with decreasing volume overload -No leukocytosis. Electrolytes at baseline. Creatinine at upper limit of baseline at 1.82. Troponin negative. EKG with chronic A Fib, no changes -Has required thoracentesis at [facility] in the past in setting of chronic diastolic heart failure, h/o TAVR in 2016 -2D echo from December 2017 with preserved EF of 60 to 65%, mild LVH and evidence of prosthetic aortic valve -Discussed possible thoracentesis with son, who is medical POA. He is okay with intervention since patient is hypoxic, anxious about decreased air movement -Routine thoracic surgery consult placed with chest ultrasound ordered for lung markings -Continue home lasix, duonebs PRN Status post thoracentesis January 20, [address] Jiang Chest x-ray: Improvement of left pleural effusion Pleural fluid culture: No growth weaned off O2 supplement Senior Design Engineering Specialist consulted, recommended to transition from Lasix PO To torsemide 10 mg p.o. daily Monitor closely, consider repeat chest x-ray in 1 week to monitor for recurrence of pleural effusion (3) Chronic diastolic CHF (congestive heart failure): -- euvolemic -- Lasix PO changed to Torsemide 10mg po daily as per Cardiology recommendations ff up as outpatient (4) Atrial fibrillation: Chronic A fib -Not on anticoagulation due to history of frequent falls (+) sinus pauses and episodes of bradycardia while sleeping consulted Cardiology service continue Metoprolol XL 25mg po daily for now (5) CKD (chronic kidney disease), stage III: Cr 1.79 repeat BMP on ff up with PCP and monitor as outpatient (6) S/P TAVR (transcatheter aortic valve replacement): 2016 (7) Diabetes mellitus, type II: A1c of 5.7 11/25 -Metformin and lantus discontinued during previous admission, goal a1c <7 for 88yo patient -Monitor BSG (8) Hypertension: Stable overall (9) CAD (coronary artery disease): (10) Anemia: hemoglobin stable at 11 (11) Dyslipidemia: Statin intolerant (12) Overactive bladder: Continue Myrbetriq -Bladder scan PRN DVT Ppx: SQ heparin given Code status: DNR per discussion with son/POA PCP: Tatyana Dispo: Return to [facility] today ff up with Dr. Joe in 3-5 days Total Time Total Time Spent Total Time Spent (In Minutes): 50 minutes Discharge Plan Discharge Items Patient Disposition: Personal [facility] Reason For Visit: SOB,ACUTE RESP FAILURE,L PLEURAL EFFUSION Discharge Diagnosis: LEFT PLEURAL EFFUSION, S/P THORACENTESIS Discharge Goals: Diagnostic testing and Therapeutic intervention Activity: Resume your previous activity Activity Comment: ALWAYS WITH ASSISTANCE, FALL PRECAUTIONS, CONTINUE PT/OT Non-emergency contact: Primary Care Provider Call non-emergency contact if: you have any medication questions, your symptoms worsen and you have a fever Follow-up/Referrals: [facility] [Primary Care Provider] - Diet: Carb Consistent or DM2 and Heart Healthy Addtl Provider Instructions: CHANGE IN MEDICATION: FUROSEMIDE 20MG PO DAILY CHANGED TO TORSEMIDE 10MG PO DAILY REPEAT BASIC METABOLIC PROFILE TO CHECK RENAL FUNCTION AND POTASSIUM LEVEL IN 2- 3 DAYS. MONITOR REGULARLY. FOLLOW UP WITH DR. JOE IN 3-5 DAYS. FOLLOW UP WITH [employer] SCHEDULED. Prescriptions: New torsemide 10 mg Tablet 10 mg PO QAM 30 Days Qty: 30 RF: 0 metoprolol succinate 25 mg Tablet Extended Release 24 Hr 25 mg PO QAM 30 Days Qty: 30 RF: 0 Continued docusate sodium 100 mg tablet 100 mg PO BID RF: 0 omeprazole 40 mg capsule,delayed release(DR/EC) 40 mg PO BID RF: 0 acetaminophen 325 mg tablet 650 mg PO Q4 PRN (Reason: Fever Or Pain) RF: 0 nitroglycerin 0.4 mg tablet, sublingual 0.4 mg SL DIRECTED PRN (Reason: Chest Pain) Qty: 100 RF: 0 cyanocobalamin (vitamin B-12) 1,000 mcg tablet 1,000 mcg PO QDB RF: 0 ondansetron HCl [Zofran] 4 mg Tablet 4 mg PO Q4 PRN (Reason: Nausea And Vomiting) RF: 0 potassium chloride 10 mEq Tablet Extended Release 10 meq PO BID RF: 0 aspirin [Aspir-81] 81 mg Tablet,Delayed Release (Dr/Ec) 162 mg PO QDB RF: 0 Ensure Liquid 1 ea PO DAILY PRN (Reason: NEEDED) RF: 0 Therems-M 27-0.4 mg Tablet 1 tab PO DAILY RF: 0 Myrbetriq 50 mg Tablet Extended Release 24 Hr 50 mg PO DAILY RF: 0 Discontinued furosemide [Lasix] 20 mg Tablet 20 mg PO QAM RF: 0 Stand-Alone Forms: [facility] Discharge Orders: Discharge Order (Routine); Ordered 01/25/19 Ordered By: Bert Beckford Admission Data Admit Date/Time: 01/20/19 17:50 Attending Provider: Bert Beckford Admit Provider: Deangelo Stafford Primary Care Provider: ALEXANDRA Tuttle Other Providers: Yovani Jiang ; Deangelo Stafford ; Derek Cole Service: Telemetry Medical
--- NOTE | 2019-01-25 13:22 | Discharge Summary ---
Date of Service January 25, 2019 Admission HPI Per Admitting Provider This is an 88yo M [facility] resident with a PMH of chronic diastolic heart failure, h/o CVA, dementia, chronic atrial fibrillation (poor candidate for anticoagulation due to frequent falls), s/p TAVR (2016), CAD (s/p CABG and stent), DM II and other medical problems listed below who presents with shortness of breath starting yesterday along with generalized weakness. Was found to be hypoxic in the 80s and sent to ED for further evaluation. Does not require home oxygen. ROS is limited due to patient being a poor historian but denies fever, chills, cough or chest pain. Does have history of pleural effusions requiring thoracentesis in the past. Has chronic diastolic heart failure with most recent 2D echo in December 2017 with preserved EF of 60 to 65%, mild LVH and evidence of prosthetic aortic valve. Was recently admitted in December for chest pain and found to have left pleural effusion at that time. Per discussion with son then, intervention like thoracentesis was not taken due to patient remained clinically stable and oxygenating on room air. Today, patient is afebrile and saturating at 98% on 2 L nasal cannula. No leukocytosis. Electrolytes at baseline. Creatinine at upper limit of baseline at 1.82. Troponin negative. Chest x-ray with increasing moderate to large left pleural effusion with extensive left lung atelectasis, loculated small right pleural effusion and right basilar atelectasis and cardiomegaly with decreasing volume overload. EKG with chronic atrial fibrillation, no changes. Discussed goals of care with son, who is POA. States that he is okay with intervention like thoracentesis since patient is short of breath and hypoxic. CODE STATUS is DNR. Admission Exam Per Admitting Provider General Appearance: WD/WN, no apparent distress, cooperative with exam Head: normocephalic, atraumatic Eyes: normal inspection, PERRL, EOMI ENT: hearing grossly normal, pharynx normal (moist mucous membranes) Neck: supple, no JVD, no adenopathy Respiratory/Chest: Clear to auscultation throughout with decreased lung sounds at left base. No wheezes, rales or rhonci appreciated. No respiratory distress or accessory muscle use Cardiovascular: irregular rate & rhythm, no murmur, normal peripheral pulses, no BLE edema Abdomen/GI: normal bowel sounds, soft, non-tender to palpation Extremities/Musculoskelatal: normal inspection, no calf tenderness, normal capillary refill, no pedal edema Neurologic/Psych: alert & oriented x 3, anxious mood, poor insight/judgement Skin: normal color, warm/dry Principal Diagnosis ACUTE HYPOXIC RESPIRATORY FAILURE SECONDARY TO LEFT PLEURAL EFFUSION Discharge Exam General- oriented x 1 , not in distress, speaks in sentences with no effort or accessory muscle use Eyes- anicteric Neck- no JVD Lungs- clear BS BL no rales no wheezes Heart- normal rate, irregularly irregular rhythm; no murmurs Abdomen- normal bowel sounds, nondistended, soft, nontender Extremities- no pretibial edema, no calf tenderness Neuro- alert, oriented x 1; no gross focal neurologic deficits Skin- warm & dry Discharge Data Allergies Allergy/AdvReac Type Severity Reaction Status Date / Time atorvastatin Allergy Severe CVA Verified 12/31/18 02:51 SYMPTOMS paroxetine Allergy Severe 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 Verified 12/31/18 02:51 donepezil Allergy Unknown Unknown Verified 12/31/18 02:51 venlafaxine Allergy Unknown Unknown Verified 12/31/18 02:51 lorazepam AdvReac Intermediate Fatigue Verified 12/31/18 02:51 Consultations 01/19/19 12:22 ED Decision to Admit Stat 01/19/19 13:54 Consult Thoracic Surgery Routine 01/19/19 14:52 Consult Case Management - Discharge Planning Routine 01/21/19 08:50 Consult Cardiology Routine Ordered Studies 01/19/19 13:54 US effusion-chest/mediastinum Routine Discharge Plan Discharge Items Patient Disposition: Personal [facility] Reason For Visit: SOB,ACUTE RESP FAILURE,L PLEURAL EFFUSION Discharge Diagnosis: LEFT PLEURAL EFFUSION, S/P THORACENTESIS Discharge Goals: Diagnostic testing and Therapeutic intervention Activity: Resume your previous activity Activity Comment: ALWAYS WITH ASSISTANCE, FALL PRECAUTIONS, CONTINUE PT/OT Non-emergency contact: Primary Care Provider Call non-emergency contact if: you have any medication questions, your symptoms worsen and you have a fever Follow-up/Referrals: ALEXANDRA Tuttle [Primary Care Provider] - Diet: Carb Consistent or DM2 and Heart Healthy Addtl Provider Instructions: CHANGE IN MEDICATION: FUROSEMIDE 20MG PO DAILY CHANGED TO TORSEMIDE 10MG PO DAILY REPEAT BASIC METABOLIC PROFILE TO CHECK RENAL FUNCTION AND POTASSIUM LEVEL IN 2- 3 DAYS. MONITOR REGULARLY. FOLLOW UP WITH DR. BALDWIN IN 3-5 DAYS. FOLLOW UP WITH SALES PROJECT ENGINEER SCHEDULED. Prescriptions: New torsemide 10 mg Tablet 10 mg PO QAM 30 Days Qty: 30 RF: 0 metoprolol succinate 25 mg Tablet Extended Release 24 Hr 25 mg PO QAM 30 Days Qty: 30 RF: 0 Continued docusate sodium 100 mg tablet 100 mg PO BID RF: 0 omeprazole 40 mg capsule,delayed release(DR/EC) 40 mg PO BID RF: 0 acetaminophen 325 mg tablet 650 mg PO Q4 PRN (Reason: Fever Or Pain) RF: 0 nitroglycerin 0.4 mg tablet, sublingual 0.4 mg SL DIRECTED PRN (Reason: Chest Pain) Qty: 100 RF: 0 cyanocobalamin (vitamin B-12) 1,000 mcg tablet 1,000 mcg PO QDB RF: 0 ondansetron HCl [Zofran] 4 mg Tablet 4 mg PO Q4 PRN (Reason: Nausea And Vomiting) RF: 0 potassium chloride 10 mEq Tablet Extended Release 10 meq PO BID RF: 0 aspirin [Aspir-81] 81 mg Tablet,Delayed Release (Dr/Ec) 162 mg PO QDB RF: 0 Ensure Liquid 1 ea PO DAILY PRN (Reason: NEEDED) RF: 0 Therems-M 27-0.4 mg Tablet 1 tab PO DAILY RF: 0 Myrbetriq 50 mg Tablet Extended Release 24 Hr 50 mg PO DAILY RF: 0 Discontinued furosemide [Lasix] 20 mg Tablet 20 mg PO QAM RF: 0 Stand-Alone Forms: [facility] Discharge Orders: Discharge Order (Routine); Ordered 01/25/19 Ordered By: Bert Beckford Admission Data Admit Date/Time: 01/20/19 17:50 Attending Provider: Bert Beckford Admit Provider: Deangelo Stafford Primary Care Provider: ALEXANDRA Tuttle Other Providers: Yovani Jiang ; Deangelo Stafford ; Derek Cole Service: Telemetry Medical
[2019-01-26] MEDS ORDERED: TORSEMIDE 10 MG TAB PO SCH (09:00)
--- NOTE | 2019-01-28 06:22 | Coding Query ---
CODING QUERY To promote full compliance with coding requirements relating to patient care, provider participation is requested in all cases of coal shoveler uncertainty. Please assist us with the question(s) below: Coding Question(s): Patient admitted with acute hypoxic respiratory failure, chronic systolic heart failure and large pleural effusion. Pleurocentesis done . Please document, if known or suspected, the etiology of the pleural effusion. Thank you Leland [facility] Physician's Response(s): Pleural Effusion likely secondary to Chronic Systolic Heart Failure Principal Diagnosis: "that condition established after study, to be chiefly responsible for occasioning the admission of the patient to the hospital for care." Co-Existing Principal Diagnosis: "when two or more diagnoses equally meet the criteria for principal diagnosis as determined by the circumstances of admission, diagnostic work up, and/or therapy provided, and the Alphabetic Index, Tabular List, or another coding guideline does not provide sequencing direction, any one of the diagnoses may be sequenced first." "When the physician has documented what appears to be a current diagnosis in the body of the record, but has not included the diagnosis in the final diagnostic statement, the physician should be asked whether the diagnosis should be added." (Source Coding [facility] 2 QTR90. p3-4) [facility]
== END 2019-01-25 16:45 | disposition home or self-care (01) | DRG 291 ==
LOC: 2N 10:27 → ED 10:27 → SUATTDRO 13:11 → 2N 13:48